=== PATIENT | male | born 1965 | race Caucasian/White ===

== ENCOUNTER → 2016-06-09 | Outpatient (CLI) | payer OTHER ==
[~2016-06-09] MED LIST: ALLO300T2 PO; ANT25 PO; ESCI1TAB9 PO; FRS/40 PO; LISI-791 PO; LPT/20 PO; WARF10TA PO; WARF7.5T PO; [UNRECOGNIZED DRUG - CODE] PO
[2016-06-09 17:17] LABS: BASO % 0.2 %; BASO ABS # 0.02 K/uL (0-0.2); COMPLETE YES; EOS % 1.3 %; HEMATOCRIT 34.7 % (42-52); IG% 0.1 %; LYMPH % 25.9 %; LYMPH ABS # 2.15 K/uL (1.2-3.4); MEAN CELL VOLUME 91.8 fL (80-100); MEAN CORPUSCULAR HEMOGLOBIN 30.2 pg (25-34); MEAN CORPUSCULAR HGB CONC 32.9 g/dl (32-36); MEAN PLATELET VOLUME 11.7 fL (7.4-10.4); MONO % 6.3 %; NEUT % 66.2 %; PLATELET COUNT 188 K/uL (130-400); RED BLOOD COUNT 3.78 M/uL (4.7-6.1)
[2016-06-09 17:20] LABS: URINE APPEARANCE CLEAR (CLEAR); URINE BILIRUBIN NEG (NEG); URINE COLOR YELLOW; URINE EPITHELIAL CELL AUTO 0-5 /lpf (0-5); URINE NITRITE NEG (NEG); URINE PH 6.5 (4.5-7.5); URINE SPECIFIC GRAVITY 1.015 (1.000-1.030); UROBILINOGEN NEG (NEG)
[2016-06-09 17:21] LABS: MANUAL MICROSCOPIC REQUIRED? NO; REVIEW REQ? NO
[2016-06-09 17:27] LABS: BLOOD UREA NITROGEN 47 mg/dl (7-18); CALCIUM 8.5 mg/dl (8.5-10.1); CARBON DIOXIDE 26 mmol/L (21-32); CHLORIDE 109 mmol/L (98-107); GLUCOSE 87 mg/dl (70-99); POTASSIUM 5.9 mmol/L (3.5-5.1); SODIUM 140 mmol/L (136-145)
[2016-06-09 17:41] LABS: URINE PROTIEN/CREAT RATIO 0.6 (0-0.2)
[2016-06-10 06:05] LABS: ESTIMATED AVERAGE GLUCOSE 114 mg/dl; HA1C FLAG Normal (Normal)
== END | disposition home or self-care (01) ==
LOC: C.LABBFT 11:14
PROVIDERS: ATTEND Physician Assistant
DX: N03.2 Chronic nephritic syndrome with diffuse membranous glomerulonephritis (principal)

== ENCOUNTER → 2016-10-13 | Outpatient (CLI) | payer OTHER ==
[2016-10-13 12:29] LABS: BASO % 0.2 %; BASO ABS # 0.02 K/uL (0-0.2); COMPLETE YES; EOS % 0.7 %; HEMATOCRIT 35.2 % (42-52); IG% 0.2 %; LYMPH % 21.5 %; LYMPH ABS # 2.18 K/uL (1.2-3.4); MEAN CELL VOLUME 93.1 fL (80-100); MEAN CORPUSCULAR HEMOGLOBIN 30.7 pg (25-34); MEAN PLATELET VOLUME 11.8 fL (7.4-10.4); MONO % 7.5 %; NEUT % 69.9 %; PLATELET COUNT 201 K/uL (130-400); RED BLOOD COUNT 3.78 M/uL (4.7-6.1); WHITE BLOOD COUNT 10.16 K/uL (4.8-10.8)
[2016-10-13 12:58] LABS: ALT/SGPT 47 U/L (12-78); AST/SGOT 40 U/L (15-37); BLOOD UREA NITROGEN 62 mg/dl (7-18); BUN/CREATININE RATIO 41.2 (10-20); CALCIUM 8.7 mg/dl (8.5-10.1); CARBON DIOXIDE 24 mmol/L (21-32); CHLORIDE 109 mmol/L (98-107); CHOLESTEROL 157 mg/dl (0-200); CHOLESTEROL/HDL RATIO 3.7; GLUCOSE 93 mg/dl (70-99); HDL CHOLESTEROL 43 mg/dl; LDL CHOLESTEROL CALCULATED 77 mg/dl; POTASSIUM 6.9 mmol/L (3.5-5.1); SODIUM 136 mmol/L (136-145); TRIGLYCERIDES 187 mg/dl (0-150); VERY LOW DENSITY LIPOPROT CALC 37 mg/dl
[2016-10-13 13:00] LABS: URINE PROTIEN/CREAT RATIO 0.2 (0-0.2); URINE TOTAL PROTEIN 53.6 mg/dl (0-11.9)
== END | disposition home or self-care (01) ==
LOC: C.LABBFT 10:56
PROVIDERS: ATTEND Physician Assistant
DX: I10 Essential (primary) hypertension (principal); N03.2 Chronic nephritic syndrome with diffuse membranous glomerulonephritis; E78.00 Pure hypercholesterolemia, unspecified

== ENCOUNTER → 2016-10-14 | Outpatient (CLI) | payer OTHER | END | disposition home or self-care (01) | LOC: C.LABBFT 11:18 | PROVIDERS: ATTEND Physician Assistant | DX: E87.5 Hyperkalemia (principal) ==

== ENCOUNTER → 2017-01-16 | Outpatient (CLI) | payer OTHER ==
[~2017-01-16] MED LIST changes: +LSN20 PO; +TPRSR/25 PO; +WARF5TAB90 PO
[2017-01-16 17:59] LABS: BASO % 0.5 %; BASO ABS # 0.04 K/uL (0-0.2); COMPLETE YES; EOS % 1.1 %; HEMATOCRIT 34.5 % (42-52); IG% 0.3 %; LYMPH ABS # 2.07 K/uL (1.2-3.4); MEAN CORPUSCULAR HEMOGLOBIN 30.8 pg (25-34); MEAN CORPUSCULAR HGB CONC 32.8 g/dl (32-36); MEAN PLATELET VOLUME 11.4 fL (7.4-10.4); MONO % 6.8 %; NEUT % 65.3 %; PLATELET COUNT 177 K/uL (130-400); RED BLOOD COUNT 3.67 M/uL (4.7-6.1); WHITE BLOOD COUNT 7.96 K/uL (4.8-10.8)
[2017-01-16 18:01] LABS: URINE APPEARANCE CLEAR (CLEAR); URINE BILIRUBIN NEG (NEG); URINE COLOR YELLOW; URINE EPITHELIAL CELL AUTO 0-5 /lpf (0-5); URINE NITRITE NEG (NEG); URINE SPECIFIC GRAVITY 1.023 (1.000-1.030); UROBILINOGEN NEG (NEG)
[2017-01-16 18:02] LABS: MANUAL MICROSCOPIC REQUIRED? NO; REVIEW REQ? NO
[2017-01-16 19:25] LABS: URINE PROTIEN/CREAT RATIO 0.4 (0-0.2)
[2017-01-16 20:53] LABS: BLOOD UREA NITROGEN 55 mg/dl (7-18); BUN/CREATININE RATIO 40.1 (10-20); CALCIUM 8.5 mg/dl (8.5-10.1); CARBON DIOXIDE 20 mmol/L (21-32); CHLORIDE 112 mmol/L (98-107); CREATININE 1.36 mg/dl (0.60-1.40); GLUCOSE 85 mg/dl (70-99); SODIUM 139 mmol/L (136-145)
== END | disposition home or self-care (01) ==
LOC: C.LABBFT 11:21
PROVIDERS: ATTEND Physician Assistant
DX: N03.2 Chronic nephritic syndrome with diffuse membranous glomerulonephritis (principal); E87.5 Hyperkalemia

== ENCOUNTER → 2017-01-20 | Outpatient (CLI) | payer OTHER ==
[~2017-01-20] MED LIST changes: -LISI-791 PO; -WARF10TA PO
[2017-01-20 12:59] LABS: URINE PROTIEN/CREAT RATIO 0.8 (0-0.2); URINE TOTAL PROTEIN 103.3 mg/dl (0-11.9)
== END | disposition home or self-care (01) ==
LOC: C.LABBFT 11:00
PROVIDERS: ATTEND Physician Assistant
DX: E87.5 Hyperkalemia (principal)

== ENCOUNTER → 2017-01-27 | Outpatient (CLI) | payer OTHER ==
[2017-01-27 12:26] LABS: BLOOD UREA NITROGEN 33 mg/dl (7-18); CALCIUM 8.6 mg/dl (8.5-10.1); CARBON DIOXIDE 28 mmol/L (21-32); CHLORIDE 109 mmol/L (98-107); CREATININE 1.12 mg/dl (0.60-1.40); GLUCOSE 114 mg/dl (70-99); POTASSIUM 4.8 mmol/L (3.5-5.1); SODIUM 141 mmol/L (136-145)
== END | disposition home or self-care (01) ==
LOC: C.LABBFT 10:39
PROVIDERS: ATTEND Physician Assistant
DX: E87.5 Hyperkalemia (principal)

== ENCOUNTER → 2017-04-25 | Outpatient (CLI) | payer OTHER ==
[~2017-04-25] MED LIST changes: -LPT/20 PO; +LPT20 PO
[2017-04-25 17:20] LABS: BASO % 0.5 %; BASO ABS # 0.04 K/uL (0-0.2); EOS % 1.3 %; EOS ABS # 0.11 K/uL (0-0.5); HEMATOCRIT 35.7 % (42-52); IG# 0.01 K/uL (0.00-0.02); LYMPH % 27.7 %; LYMPH ABS # 2.27 K/uL (1.2-3.4); MEAN CELL VOLUME 91.5 fL (80-100); MEAN CORPUSCULAR HEMOGLOBIN 30.8 pg (25-34); MEAN CORPUSCULAR HGB CONC 33.6 g/dl (32-36); MEAN PLATELET VOLUME 11.7 fL (7.4-10.4); MONO ABS # 0.57 K/uL (0.11-0.59); NEUT % 63.4 %; PLATELET COUNT 187 K/uL (130-400); RED CELL DISTRIBUTION WIDTH CV 14.3 % (11.5-14.5); RED CELL DISTRIBUTION WIDTH SD 47.5 fL (36.4-46.3)
[2017-04-25 17:41] LABS: BLOOD UREA NITROGEN 47 mg/dl (7-18); CALCIUM 8.7 mg/dl (8.5-10.1); CARBON DIOXIDE 25 mmol/L (21-32); CHOLESTEROL 183 mg/dl (0-200); CREATININE 1.36 mg/dl (0.60-1.40); GLUCOSE 81 mg/dl (70-99); POTASSIUM 5.8 mmol/L (3.5-5.1); SODIUM 137 mmol/L (136-145)
== END | disposition home or self-care (01) ==
LOC: C.LAB1850 16:19
PROVIDERS: ATTEND Internal Medicine
DX: E78.00 Pure hypercholesterolemia, unspecified (principal)

== ENCOUNTER 2023-08-22 13:53 | Inpatient (IN) ==
--- NOTE | 2023-08-22 14:04 | ED Triage Note ---
Date of Service August 22, 2023 Provider in Triage Author: Rolf Souza History of Present Illness This patient was briefly evaluated while in triage. An abbreviated physical exam was performed. This patient is a 57-year-old Male who presents to the ED for evaluation sent by Dr. Latham for ARF had standing labs today in anticipation for appointment on 08/30 -creatinine elevated per patient no pain, no complaints Physical Exam GENERAL: NAD CARDIOVASCULAR: RRR RESPIRATORY: CTA ABDOMEN: BS x 4. Nontender to palpation. Initial orders for labs and / or imaging were placed and patient was placed in the waiting area until a bed is available. Please see further documentation for the full ED course.
--- NOTE | 2023-08-22 14:16 | Emergency Department Note ---
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 Patient last saw Dr. Latham about a month ago. He had standing blood work drawn today in anticipation for an appointment next week. He was contacted by the office that his "renal functions were abnormal." Patient otherwise reports that he has been feeling well. He denies any chest pain, shortness of breath, lightheadedness, dizziness, nausea or vomiting. Other than increasing his cyclosporine at 1 month ago there is been no changes in his medications. He is urinating without difficulty. Home Medications Medication Instructions Recorded Confirmed Type escitalopram oxalate 5 mg tablet 10 mg PO DAILY 01/02/23 08/22/23 History metoprolol succinate 50 mg 50 mg PO BID #180 tabs 06/15/23 08/22/23 Rx tablet,extended release 24 hr lisinopril 10 mg tablet 10 mg PO DAILY #90 tabs 06/29/23 08/22/23 Rx cyclosporine modified 100 mg 100 mg PO BID #180 caps 08/02/23 08/22/23 Rx capsule (Neoral) allopurinol 300 mg tablet 300 mg PO QAM 08/22/23 08/22/23 History cholecalciferol (vitamin D3) 50 50 mcg PO PM 08/22/23 08/22/23 History mcg (2,000 unit) capsule furosemide 20 mg tablet 20 mg PO DAILY PRN ankle edema 08/22/23 08/22/23 History hydrocortisone 2.5 % topical cream 1 applic GA BID PRN hemorrhoids 08/22/23 08/22/23 History with perineal applicator (Anusol-HC) hydrocortisone acetate 25 mg 25 mg GA DAILY PRN Other 08/22/23 08/22/23 History rectal suppository rosuvastatin 40 mg tablet (Crestor) 40 mg PO PM 08/22/23 08/22/23 History warfarin 5 mg tablet 7.5 mg PO UD 08/22/23 08/22/23 History Allergies Allergy/AdvReac Type Severity Reaction Status Date / Time NSAIDS (Non-Steroidal Allergy Unknown Unknown Verified 08/02/23 15:19 Anti-Inflamma Past Med/Surg History Problem List (Updated 08/22/23 @ 15:53 by Jody Smith) Chronic membranous glomerulonephritis (Acute) Acute renal failure (ARF) (Acute) Acute renal failure (ARF) Chewing tobacco dependence in remission 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 since 1998 on warfarin Depression (Chronic) Chronic membranous glomerulonephritis (Chronic) HTN (hypertension) (Chronic) Hx of gout (Chronic) Multinodular thyroid (Chronic) Pre-diabetes (Chronic) Renal vein thrombosis Systolic murmur at cardiac apex Mitral regurgitation Pulmonary nodules (Acute) 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 Abnormal CT scan of lung Atrial fibrillation (Chronic) hx of Apr 2020 during hospitalization--on warfarin/metoprolol--per PCP note 06/28/21 HR noted to be regular rhythm Dyslipidemia Vitamin D deficiency Gastroesophageal reflux disease Drug-induced anemia Hemorrhoids Medical History Gout Anemia Chronic membranous glomerulonephritis Cushings syndrome Depression Hypercholesterolemia Multinodular thyroid Nephrotic syndrome Renal/ureteral disease 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 Surgical History Status post biopsy of kidney History of colonoscopy History of wisdom tooth extraction S/P thyroid biopsy History of bronchoscopy (~04/2020) Family History Other Hypertension No family history of adverse response to anesthesia Denies family history of Ovarian cancer Prostate cancer Myocardial infarction Breast cancer Colorectal cancer Social History Smoking Status: Never smoker Second Hand Exposure: No; Do You Dip or Chew Tobacco: No (chews tobacco (advised on policy)); Hx Alcohol Use: Yes Alcohol type: beer and hard liquor Alcohol Intake Frequency: 2-4 x/Month Hx Substance Use: No Preferred Language: Persian Communication Ability: Effective Visual Impairment: Limited Hearing Ability: Normal Refrigerator Cabinetmaker Required: No Beliefs That Will Affect Care: None marital status: Current Living Situation: Spouse current occupational status: employed 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 How many Children do You have: 2 Feels Safe at Home: Yes Diet: low salt caffeine: Yes (1 soda daily) Dental Care, Regularly: Yes Physical Activity Frequency: Does not Exercise Seatbelt Use: always Do you think of yourself as: straight/heterosexual Gender Identity: Male Assistive Devices: Glasses Review of Systems A total of 10 systems reviewed and were otherwise negative Physical Exam Vital Signs Vital Signs - 24 hr 08/22/23 14:02 08/22/23 14:47 08/22/23 15:18 Temperature 36.5 C Temperature Source Temporal Artery Scan Pulse Rate 58 L 55 L Pulse Rate [Apical] 57 L Pulse Rhythm Regular Respiratory Rate 20 17 Respiratory Effort / Characteristics Non-Labored Spontaneous Non-Labored Spontaneous Respiratory Depth Normal Normal Respiratory Pattern Regular Blood Pressure 170/94 H Blood Pressure [Left Arm] 159/99 H Blood Pressure Mean 119 Blood Pressure Mean [Left Arm] 119 Pulse Oximetry 99 98 Oxygen Delivery Method Room Air Room Air Sepsis Recent Fever Within 48 Hours No Sepsis New/Unexplained Change in Mental Status No Sepsis Action Taken by Nursing No Action Required CONSTITUTIONAL: Pleasant, well-appearing 57-year-old male in no acute distress. EYES: Pupils equal, round, reactive to light and accommodation. EOMs intact without nystagmus. Sclera are anicteric. ENT: Tympanic membranes intact, with normal landmarks. External canals are clear. Oral and nasopharynx are clear. Mucous membranes are moist, no lesions, tongue and gums appear normal. CARDIOVASCULAR: Regular rate and rhythm. No JVD. Peripheral pulses easy to palpable. RESPIRATORY: Breath sounds equal and clear to auscultation. GI: Bowel sounds are present. Abdomen is soft, nontender, nondistended. No organomegaly. No pulsatile masses. No guarding or rebound. MUSCULOSKELETAL: Full range of motion of extremities x 4 with good strength. No cyanosis, edema, joint tenderness or swelling. No deformity. INTEGUMENTARY: No lesions or rash, normal skin turgor. NEUROLOGICAL: Alert, oriented, and cooperative. Cranial nerves, sensation and strength grossly intact. Course Course Patient was seen and assessed as above. External medical records were reviewed, including recent nephrology notes, and blood work that was performed around 0800 this morning. Labs from earlier today per my interpretation white count 7400, H&H 10.4 and 31.4, platelet count 196,000. Sodium 138, potassium 4.4, chloride 108, carbon dioxide 21, BUN 95 and creatinine 4.64. Baseline creatinine tends to run between 1.5 and 2, although he has had creatinines as high as 3.0 earlier this year. No gross liver function abnormalities noted. Urine is not overtly concerning for infection. Random urine total protein elevated 537. Cyclosporine level is pending. Patient was assessed by myself in triage, and then again in the subwait room. I did order EKG, coags, cardiac monitoring and urinalysis from the ED. After review of the information above and other included data, I feel the patient requires further inpatient care/management. This was discussed with the patient and he concurs. He states that that was the intention of his architectural superintendent. I did discuss the patient with the ED hospice case manager for admission. Patient was reviewed with the [facility] Hospitalist Service, Dr. Rae, for admission. Diagnostics, as interpreted by me: Laboratory studies: PTT 36.4, INR supratheraputic at 3.8. Urine microscopy notes 3+ protein and 1+ blood. ECG: Sinus bradycardia 57 bpm, no acute ischemic changes. No significant change on review of prior EKGs. Cardiac Monitoring: Cardiac monitoring: An order was placed for continuous cardiac monitoring. The monitor shows a sinus bradycardia in the 50s per my interpretation. Differential diagnosis: Electrolyte or metabolic abnormality, dehydration, GAYLA, medication side effect, acute renal failure, among others. Medical Decision Making Differential Diagnosis See ED Course. Medical Records Attestation: I reviewed the patient's medical records. Home Medications Current Medication List: was personally reviewed by me Laboratory Data Attestation: I reviewed the patient's lab results. Lab Results 08/22/23 08/22/23 Range/Units 14:10 14:35 PT 36.4 H (9.0-12.0) Seconds INR 3.8 H (0.9-1.1) APTT 42 H (21-31) Seconds PTT Ratio 1.6 TSH 1.263 (0.300-4.500) uIu/ml Urine Color Yellow Urine Appearance Clear (Clear) Urine pH 6.5 (4.5-7.5) Ur Specific [place] 1.013 (1.000-1.030) Urine Protein 3+ H (Negative) Urine Glucose (UA) Negative (Negative) Urine Ketones Negative (Negative) Urine Blood 1+ H (Negative) Urine Nitrite Negative (Negative) Urine Bilirubin Negative (Negative) Urine Urobilinogen Negative (Negative) Ur Leukocyte Esterase Negative (Negative) Urine WBC (Auto) 0-5 (0-5) /hpf Urine RBC (Auto) 0-2 (0-2) /hpf U Hyaline Cast (Auto) 0-2 (0-2) /lpf U Epithel Cells (Auto) 0-2 (0-2) /hpf Urine Bacteria (Auto) None Seen (None Seen) MDM Narrative See ED Course. Impression & Plan Acute renal failure (ARF), Chronic membranous glomerulonephritis Discharge Plan Visit Data Chief Complaint: Abnormal Labs/Diagnostic Testing Stated Complaint: ABNORMAL BLOOD TESTS ED Provider: Dong Del Valle ED Midlevel Provider: Rolf Souza Discharge Problem: Acute renal failure (ARF), Chronic membranous glomerulonephritis Patient Disposition: Admitted As Inpatient Forms Stand Alone Forms: [facility] Prescriptions Prescriptions: No Action metoprolol succinate 50 mg tablet extended release 24 hr 50 mg PO BID Qty: 180 3RF Rx Instructions: 1 tablet twice per day escitalopram oxalate 5 mg tablet 10 mg PO DAILY lisinopril 10 mg tablet 10 mg PO DAILY Qty: 90 3RF cyclosporine modified [Neoral] 100 mg capsule 100 mg PO BID Qty: 180 3RF hydrocortisone acetate 25 mg suppository 25 mg GA DAILY PRN (Reason: Other) hydrocortisone [Anusol-HC] 2.5 % cream with perineal applicator 1 applic GA BID PRN (Reason: hemorrhoids) warfarin 5 mg tablet 7.5 mg PO UD Protocol: Dose Management Condition: Monday Dose/Route: 7.5 mg Instruction: 1.5 x 5 mg tablets Condition: Monday Dose/Route: 7.5 mg Instruction: 1.5 x 5 mg tablets Condition: Monday Dose/Route: 5 mg Instruction: 1 x 5 mg tablet Condition: Monday Dose/Route: 7.5 mg Instruction: 1.5 x 5 mg tablets Condition: Dose/Route: 5 mg Instruction: 1 x 5 mg tablet Condition: Monday Dose/Route: 7.5 mg Instruction: 1.5 x 5 mg tablets Condition: Monday Dose/Route: 5 mg Instruction: 1 x 5 mg tablet Protocol Text: Adjustment Start Date: Monday08/08/23 INR Value: 2.9 INR Date: 08/08/23 Recheck Date: 08/15/23 Rx Instructions: 5 mg- Monday, and Monday ; 7.5 rest of the days ( Monday, Monday, Monday, Monday) allopurinol 300 mg tablet 300 mg PO QAM Rx Instructions: TAKE 1 TABLET ORALLY DAILY IN THE MORNING furosemide 20 mg tablet 20 mg PO DAILY PRN (Reason: ankle edema) Rx Instructions: 20 mg orally as needed for ankle edema; rosuvastatin [Crestor] 40 mg tablet 40 mg PO PM cholecalciferol (vitamin D3) 50 mcg (2,000 unit) capsule 50 mcg PO PM Referrals Referrals: Tasneem Russo MD [Primary Care Provider] -
--- NOTE | 2023-08-22 14:46 | History & Physical Report ---
Date of Service August 22, 2023 Assessment & Plan (1) Acute renal failure (ARF): Plan: Acute on chronic CKD, ARF. Non-anuric. History of membranous glomerulonephritis -Biopsy proven membranous GM int he past (10 years ago).Previously treated with oral cyclosporin. Was on 100 mg daily until 2022, then tapered to 25 mg daily thereafter, and subsequently dc/ed. Hospitalized 2020 and subsequently [place] [facility]ure[place] disease/vasculitis with negative i mmunologic workup, negative ANCA, negative anti-GBM antibody. Creatinine gradually uptrending. 4.64 on admission. Potassium is normal. No overt volume overload. No indication for dialysis on admission - Discussed w/ nephro. Typically treat for 2 years then taper. Had been tapering, did OK until was completely dced then developed nephrotic range proteinuria. Defer biopsy as we have the antibodies, and history of positive. ?Lisinopril, dehydration contributing vs failure of cyclosporin therapy. cyclosporin level pending --> if therpeutic and 'failing' --> May need Rituxan/steroids. Appreciate recommendations - Repeat US pending, no obstruction on last US - INR 3.8, slightly supratherapeutic. No hematuria, flank pain or evidence of bleeding. 1 dose of warfain held. Low risk of thrombosis, RV imaging deferred. +HTN. RA Duplex pending. -UA with 1+ blood and protein, otherwise bland (2) Chronic membranous glomerulonephritis: Plan: - As noted (3) Atrial fibrillation: Plan: History of paroxysmal A-fib Sinus on admission, no chest pain Metoprolol continued 1 dose of warfarin held, continue warfarin with goal INR 23.0 (4) Gout: Plan: Gout Patient has been on allopurinol 300mg daily. Held for renal function. No evidence of acute flare (5) HTN (hypertension): Plan: - MTP continued - Lisinopril held - Labetelol applications support specialist, If limited by bradycardia hydralazine available (6) Pre-diabetes: Plan: - BSG 166 on admit - Conservative SSI ordered, AC/HS, DM2 diet goal 110-150 (7) Multinodular thyroid: Plan: - No acute sx. TSH added. Follows with Dr. Russo Plan Prophylaxis: Anticoagulated Diet: Control carb Disposition: Medical telemetry for hypertension with beta-alvin availability and acute renal failure, history of A-fib CODE STATUS: Full code History of Present Illness Primary Care Provider: Tasneem Russo MD Duane is seen at the bedside with his Lucy present. had bloodwork done in advance of his appointment with nephrology next month and his creatinine had risen significantly with nephrotic proteinurea. Was referred to the ER for further care. Other than that has felt OK Denies leg swelling No fevers, chills, or sweats Does endorse some mild fatigue no cough, no URI symptoms. no abdominal swelling. no nausea or vomiting Patient reports he has a hx of glomerulonephritis - Diagnosed in 1998. Has been on cyclosporin since that time. In June his Cr started torise as he was cutting down on the cyclosporin, so was placed back on 100mg daily in July, then June was increased back to 200mg twice daily. Has not had improvement in his renal function despite this. Eating and drinking normally. Taking lisinopril as directed in the morning, did take lisinopril this AM. Taking warfarin as direct. 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 Has not missed any doses of warfarin in the last 2 weeks. Misses a dose rarely, maybe 1 dose missed a month and would always take in the morning if he forgot. No back or flank pain. No abdominal pain. No hematuria. Peeing normally. No oliguria/anuria Hx of a thyroid nodule following with Dr. Russo. history of Afib. On warfarin. Doing well on MTP 50mg BID. takes allopurinol for gout takes crestor for hld No history of DC/CVA. INR 3.8 today Medical History: Reviewed Medications: Reviewed Surgical History: Reviewed Family history: Reviewed Allergies: Reviewed Social History: Reviewed Code Status: Full Allergies Allergy/AdvReac Type Severity Reaction Status Date / Time NSAIDS (Non-Steroidal Allergy Unknown Unknown Verified 08/02/23 15:19 Anti-Inflamma Home Medications Medication Instructions Recorded Confirmed Type escitalopram oxalate 5 mg tablet 10 mg PO DAILY 01/02/23 08/22/23 History metoprolol succinate 50 mg 50 mg PO BID #180 tabs 06/15/23 08/22/23 Rx tablet,extended release 24 hr lisinopril 10 mg tablet 10 mg PO DAILY #90 tabs 06/29/23 08/22/23 Rx cyclosporine modified 100 mg 100 mg PO BID #180 caps 08/02/23 08/22/23 Rx capsule (Neoral) allopurinol 300 mg tablet 300 mg PO QAM 08/22/23 08/22/23 History cholecalciferol (vitamin D3) 50 50 mcg PO PM 08/22/23 08/22/23 History mcg (2,000 unit) capsule furosemide 20 mg tablet 20 mg PO DAILY PRN ankle edema 08/22/23 08/22/23 History hydrocortisone 2.5 % topical cream 1 applic MI BID PRN hemorrhoids 08/22/23 08/22/23 History with perineal applicator (Anusol-HC) hydrocortisone acetate 25 mg 25 mg MI DAILY PRN Other 08/22/23 08/22/23 History rectal suppository rosuvastatin 40 mg tablet (Crestor) 40 mg PO PM 08/22/23 08/22/23 History warfarin 5 mg tablet 7.5 mg PO UD 08/22/23 08/22/23 History Past Med/Surg History Problem List Acute renal failure (ARF) Chewing tobacco dependence in remission Quit in 01/2023 [facility] (current) use of anticoagulants since 1998 on warfarin Depression (Chronic) Chronic membranous glomerulonephritis (Chronic) HTN (hypertension) (Chronic) Hx of gout (Chronic) Multinodular thyroid (Chronic) Pre-diabetes (Chronic) Renal vein thrombosis Systolic murmur at cardiac apex Mitral regurgitation Pulmonary nodules (Acute) 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 A therapy Abnormal CT scan of lung Atrial fibrillation (Chronic) hx of Apr 2020 during hospitalization--on warfarin/metoprolol--per PCP note 06/28/21 HR noted to be regular rhythm Dyslipidemia Vitamin D deficiency Gastroesophageal reflux disease Drug-induced anemia Hemorrhoids Medical History Gout Anemia Chronic membranous glomerulonephritis Cushings syndrome Depression Hypercholesterolemia Multinodular thyroid Nephrotic syndrome Renal/ureteral disease 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 Surgical History Status post biopsy of kidney History of colonoscopy History of wisdom tooth extraction S/P thyroid biopsy History of bronchoscopy (~04/2020) Family History Other Hypertension No family history of adverse response to anesthesia Denies family history of Ovarian cancer Prostate cancer Myocardial infarction Breast cancer Colorectal cancer Social History Smoking Status: Never smoker Second Hand Exposure: No; Do You Dip or Chew Tobacco: No (chews tobacco (advised on policy)); Hx Alcohol Use: Yes Alcohol type: beer and hard liquor Alcohol Intake Frequency: 2-4 x/Month Hx Substance Use: No Preferred Language: Icelandic Communication Ability: Effective Visual Impairment: Limited Hearing Ability: Normal Car Head 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 How many Children do You have: 2 Feels Safe at Home: Yes Diet: low salt caffeine: Yes (1 soda daily) Dental Care, Regularly: Yes Physical Activity Frequency: Does not Exercise Seatbelt Use: always Do you think of yourself as: straight/heterosexual Gender Identity: Male Assistive Devices: Glasses Physical Exam Physical Exam: General: A&Ox3. NAD. Cooperative. HEENT: Atraumatic, normocephalic. Vision/hearing intact Pulm: CTAB A&P. -wheezes, -rales, -rhonchi. Symmetrical chest rise. No increased work of breathing. No respiratory distress. Cardiac: RRR, -mrg. Radial pulses intact and symmetrical. Abdominal: Nontender, nondistended, soft. BS present. No CVA tenderness. No hematomas. Ext: No pitting edema Results & Data Results & Data Vital Signs (Past 12 Hours) Vital Signs Temp Pulse Resp BP Pulse Ox O2 Del Method 08/22/23 14:02 36.5 C 58 L 20 170/94 H 99 Room Air PG Care Time/CCT Total # of Minutes Spent Total Time Spent with Patient: Total time spent is greater than 50% in coordination of care (as documented) at patient's floor/unit and/or counseling patient: Coding Level of Care Code 46056 INT INP/OBS CARE 3/75MIN Diagnoses Acute renal failure (ARF) N17.9 Chronic membranous glomerulonephritis N03.2 Atrial fibrillation I48.91 Gout M10.9 Hypertension, unspecified type I10 Hypertension type: unspecified Pre-diabetes R73.03 Multinodular thyroid E04.2 (5) HTN (hypertension) Hypertension type: unspecified Qualified Code(s): I10 - Essential (primary) hypertension
[2023-08-22 14:54] LABS: INR 3.8 (0.9-1.1); Partial Thromboplastin Ratio 1.6; Partial Thromboplastin Time 42 Seconds (21-31); Prothrombin Time 36.4 Seconds (9.0-12.0)
[2023-08-22 15:07] LABS: Appearance Urine Clear (Clear); Bacteria Urine Automated None Seen (None Seen); Bilirubin Urine Negative (Negative); Blood Urine 1+ (Negative); Cast Urine Automated 0-2 /lpf (0-2); Color Urine Yellow; Epithelial Cell Urine Auto 0-2 /hpf (0-2); Glucose Urine UA Negative (Negative); Ketones Urine Negative (Negative); Leukocyte Esterase Urine Negative (Negative); Nitrite Urine Negative (Negative); Protein Urine 3+ (Negative); RBC Urine Automated 0-2 /hpf (0-2); Specific Gravity Urine 1.013 (1.000-1.030); Urobilinogen Urine Negative (Negative); WBC Urine Automated 0-5 /hpf (0-5); pH Urine 6.5 (4.5-7.5)
[2023-08-22] MEDS ORDERED: GLUCAGON FOR INJ 1 MG VIAL SQ PRN (15:31)
[2023-08-22] MEDS ORDERED: CARBOHYDRATES FOR HYPOGLYCEMIA PO PRN (15:31)
[2023-08-22] MEDS ORDERED: DEXTROSE 50% 50 ML SYRINGE IV PRN (15:31)
[2023-08-22] MEDS ORDERED: GLUCOSE 10 TAB/TUBE PO PRN (15:31)
[2023-08-22] MEDS ORDERED: GLUCOSE 40% GEL 15 GM TUBE PO PRN (15:31)
[2023-08-22] MEDS ORDERED: hydrALAZINE HCL 20 MG/ML VIAL IV PRN ×2 (15:36→20:50)
[2023-08-22] MEDS ORDERED: LABETALOL HCL IV 5 MG/ML 20ML IV PRN (15:36)
[2023-08-22] MEDS: hydrALAZINE 10 MG TAB PO STA (17:13)
--- NOTE | 2023-08-22 17:13 | Electrocardiogram Report ---
Test Reason : Blood Pressure : / mmHG Vent. Rate : 057 BPM Atrial Rate : 057 BPM P-R Int : 148 ms QRS Dur : 090 ms QT Int : 422 ms P-R-T Axes : 022 014 024 degrees QTc Int : 410 ms Sinus bradycardia Otherwise normal ECG When compared with ECG of 15-JUN-2022 14:54, (unconfirmed) No significant change was found Confirmed by Josemanuel Lees ([id number]) on 08/22/2023 5:13:07 PM Referred By: Confirmed By:Elias Lees
[2023-08-22] MEDS: LACTATED RINGER'S 1,000 ML IV SCH (17:14)
[2023-08-22] MEDS: INSULIN ASPART PER UNIT CHARGE SC SCH (17:54)
[2023-08-22] MEDS: hydrALAZINE HCL 20 MG/ML VIAL IV ONE (18:51)
[2023-08-22] MEDS: METOPROLOL SUCC 50MG EXT REL TAB PO SCH (20:55)
[2023-08-22] MEDS: cycloSPORINE 100 MG CAP PO SCH (20:55)
[2023-08-22] MEDS ORDERED: ROSUVASTATIN CALCIUM 20 MG TAB PO SCH (21:00)
--- NOTE | 2023-08-23 07:13 | Ultrasound Report ---
DOPPLER ULTRASOUND OF THE RENAL ARTERIES CLINICAL HISTORY: Acute renal failure. Hypertension. COMPARISON STUDY: CT of May 04, 2000. Renal ultrasound December 03, 2023. TECHNIQUE: Color and duplex Doppler sonography of the renal arteries and abdominal aorta was waqas cade FINDINGS: The right kidney measures 12.2 x 6.5 x 5.3 cm and the left measures 12.2 x 7.9 x 6.2 cm per there is no hydronephrosis. Several renal cysts are again noted. 1.2 cm echogenic left renal lesion is unchanged. This favors an angiomyolipoma. Renal echogenicity is increased. The peak systolic veloc ity within the abdominal aorta was 87 cm/s. Peak systolic velocity within the right renal artery was 105 cm/s. The peak systolic velocity within the left renal artery was 94 cm/s. No elevated velocities were identified within the renal arteries. IMPRESSION: 1. No sonographic evidence for renal artery stenosis. 2. Mild increase in echogenicity, similar to prior ultrasound. 3. No significant change in a 1.2 cm echogenic left renal lesion which favors an angiomyolipoma. ACT 112: Negative or not required by law. Electronically signed by: Nam Rowley M.D. 08/23/2023 7:11 AM
[2023-08-23 07:42] LABS: Basophils # (auto) 0.04 K/uL (0.00-0.20); Basophils % (auto) 0.5 %; Eosinophils # (auto) 0.11 K/uL (0.00-0.50); Eosinophils % (auto) 1.4 %; Hematocrit (blood only) 30.5 % (42.0-52.0); Hemoglobin 10.3 g/dl (14.0-18.0); Immature Granulocytes # (auto) 0.02 K/uL (0.01-0.20); Immature Granulocytes % (auto) 0.3 %; Lymphocytes # (auto) 1.98 K/uL (1.20-3.40); Lymphocytes % (auto) 24.9 %; Mean Corpuscular Hemoglobin 30.6 pg (25.0-34.0); Mean Corpuscular Hgb Conc 33.8 g/dL (32.0-36.0); Mean Corpuscular Volume 90.5 fL (80.0-100.0); Monocytes # (auto) 0.67 K/uL (0.11-0.59); Monocytes % (auto) 8.4 %; Neutrophils # (auto) 5.14 K/uL (1.40-6.50); Neutrophils % (auto) 64.5 %; Platelet Count 162 K/uL (130-400); RDW Coefficient of Variation 13.6 % (11.5-14.5); RDW Standard Deviation 45.8 fL (36.4-46.3); Red Blood Count 3.37 M/uL (4.70-6.10); White Blood Count 7.96 K/ul (4.8-10.8)
[2023-08-23 07:59] LABS: BUN Creatinine Ratio 22.5 (10-20); Calcium 8.2 mg/dl (8.6-10.3); Creatinine Clr Calc Pharmacy 19.5 ml/min; Est GFR (African American) 17.1 ml/min; Est GFR (Non-African American) 14.8 ml/min; Potassium 4.8 mmol/L (3.5-5.1)
--- NOTE | 2023-08-23 08:03 | Hospitalist Progress Note ---
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 Acute Kidney Injury -In the context of membranous glomerulonephritis, CKD, and hx of renal vein thrombosis -HTN, No hematuria, flank pain or evidence of bleeding. No overt volume overload. -Baseline creatinine 1.4 - 2.0. On admission: 4.46. Creatinine trending downward. INR 3.8, slightly supratherapeutic. UA with 1+ blood and protein. -Renal U/S and renal artery duplex unremarkable, negative for renal artery stenosis -Nephrology consulted, appreciate recommendations. * No indication for dialysis at this time * Cyclosporin levels pending. If levels are therapeutic and failing, consider biopsy and/or Rituxiab/steroids * Continue Cyclosporin 100 mg. * Keep well-hydrated, monitor intake/output, aim for net positive as he does not have any sign of volume overload. * Hold furosemide, hydrocortisone, lisinopril. If kidney function improved and stabilized, resume lisinopril * Check labs in AM: PT INR, renal function panel, Fe panel, ferritin, folate, Vitamin B12. Consider ROMELIA. Elevated INR, on Warfarin -INR 3.8 on admission, goal is 2-3 -Warfarin was held 08/22/23 in the evening * Discontinued Warfarin 7.5 mg. Ordered Warfarin 5 mg, start this PM * Recheck PT INR in the AM Hypertension -In the context of membranous glomerulonephritis, CKD, GAYLA * Hold lisinopril * Continue metoprolol Depression * Continue Lexapro 10 mg Hyperlipidemia * Continue Rosuvastatin 40 mg Gout * Hold allopurinol FEN: Carb consistent or DM2 Code status: full code DVT ppx: SCD Held home meds: 1 dose of warfarin held, furosemide, hydrocortisone, lisinopril, allopurinol Consults: nephrology Dispo: telemetry med Admission and Anticipated Discharge Date Admission Date: August 22, 2023 Supervising Physician Co-Signing Physician Notes I also saw the patient and confirmed ricketts portions of the clinical history and physical examination. I agree with the impression and plan as noted in the medical student and resident documentation above. Subjective No overnight concerns. No new symptoms or concerns. He endorses mild fatigue, mild left sided frontal headache, and mild lumbar back pain (which he attributes to the hospital bed). He denies dysuria, fevers, chills, CP, SOB, dizziness, nausea, abdominal swelling, back pain, flank pain, hematuria, oliguria, anuria and changes in vision. [facility] He reports that he has not missed any warfarin doses in the last two weeks, but that his INR has been "all out of wack" lately. His most recent INR was 3.9. He was initially on 5 mg //Mon and 7.5 mg Mon/Mon/Monday/Mon. He was switched to 5mg every day, and then recently was put back on the 5mg/7.5 mg schedule. Review of Systems 2 Review of Systems: See HPI, otherwise negative Physical Exam 2 Physical Exam: Constitutional: well-appearing, no acute distress HEENT: NCAT, no conjunctival injection CV: regular rhythm, no murmur appreciated, extremities well-perfused, no LE edema Resp: CTABL, no wheezes/rales/rhonchi appreciated,no increased work of breathing GI: soft, nondistended, nontender, BS normoactive MSK: No gross deformities appreciated Back: No CVA tenderness Skin: warm, dry, no rash appreciated Neuro: alert, oriented, no focal neurologic deficits appreciated Results & Data Results & Data Vital Signs (Past 12 Hours) Vital Signs Temp Pulse Pulse Resp BP Pulse Ox O2 Del Method 08/23/23 07:29 98.1 F 55 L 18 158/80 H 96 Room Air 08/23/23 03:36 97.7 F 57 L 16 167/96 H 96 Room Air 08/22/23 22:53 98.1 F 58 L 18 155/85 H 97 Room Air Laboratory Results 08/23/23 07:28 08/23/23 07:28 Diagnostic Findings DOPPLER ULTRASOUND OF THE RENAL ARTERIES CLINICAL HISTORY: Acute renal failure. Hypertension. COMPARISON STUDY: CT of May 04, 2000. Renal ultrasound December 03, 2023. TECHNIQUE: Color and duplex Doppler sonography of the renal arteries and abdominal aorta was performed. FINDINGS: The right kidney measures 12.2 x 6.5 x 5.3 cm and the left measures 12.2 x 7.9 x 6.2 cm per there is no hydronephrosis. Several renal cysts are again noted. 1.2 cm echogenic left renal lesion is unchanged. This favors an angiomyolipoma. Renal echogenicity is increased. The peak systolic velocity within the abdominal aorta was 87 cm/s. Peak systolic velocity within the right renal artery was 105 cm/s. The peak systolic velocity within the left renal artery was 94 cm/s. No elevated velocities were identified within the renal arteries. IMPRESSION: 1. No sonographic evidence for renal artery stenosis. 2. Mild increase in echogenicity, similar to prior ultrasound. 3. No significant change in a 1.2 cm echogenic left renal lesion which favors an angiomyolipoma. Medications Administered Current Inpatient Medications Cyclosporine (Cyclosporine 100 Mg Cap) 100 mg PO BID ARTURO Stop: 09/21/23 20:59 Last Admin: 08/22/23 20:55 Dose: 100 mg Dextrose (Dextrose 50% 50 Ml Syringe) 25 - 50 ml IV UD PRN; Protocol PRN Reason: Hypoglycemia Protocol Stop: 09/21/23 15:30 Escitalopram Oxalate (Escitalopram Oxalate 10 Mg Tab) 10 mg PO DAILY ARTURO Stop: 09/22/23 08:59 Glucagon (Glucagon For Inj 1 Mg Vial) 1 mg SQ UD PRN; Protocol PRN Reason: Hypoglycemia Protocol Stop: 09/21/23 15:30 Glucose (Glucose 40% Gel 15 Gm Tube) 15 - 30 gm PO UD PRN; Protocol PRN Reason: Hypoglycemia Protocol Stop: 09/21/23 15:30 Glucose (Glucose 10 Tab/Tube) 4 - 8 tab PO UD PRN; Protocol PRN Reason: Hypoglycemia Treatment Stop: 09/21/23 15:30 Hydralazine HCl (Hydralazine Hcl 20 Mg/Ml Vial) 5 mg IV Q6H PRN PRN Reason: SBP >180, second line Stop: 09/21/23 15:35 Insulin Aspart (Insulin Aspart Per Unit Charge) 0 units SC ACHS RATURO Stop: 09/21/23 16:29 Last Admin: 08/22/23 20:04 Dose: Not Given Labetalol HCl (Labetalol Hcl Iv 5 Mg/Ml 20ml) 5 mg IV Q6H PRN PRN Reason: SBP > 180, 1st line Stop: 09/21/23 15:35 Metoprolol Succinate (Metoprolol Succ 50mg Ext Rel Tab) 50 mg PO BID [facility] Stop: 09/21/23 20:59 Last Admin: 08/22/23 20:55 Dose: 50 mg Miscellaneous (Carbohydrates For Hypoglycemia ) 15 - 30 gm PO UD PRN PRN Reason: Hypoglycemia Protocol Stop: 09/21/23 15:30 Rosuvastatin Calcium (Rosuvastatin Calcium 20 Mg Tab) 40 mg PO PM [facility] Stop: 09/21/23 20:59 Warfarin Sodium (Warfarin Sod 7.5 Mg Tab) 7.5 mg PO [email or web address] [facility] Stop: 09/22/23 15:59 Warfarin Sodium (Warfarin Sod 5 Mg Tab) 5 mg PO [email or web address] [facility] Stop: 09/23/23 15:59 ECG Additional Comments: Vent. Rate : 057 BPM Atrial Rate : 057 BPM P-R Int : 148 ms QRS Dur : 090 ms QT Int : 422 ms P-R-T Axes : 022 014 024 degrees QTc Int : 410 ms Sinus bradycardia 57 Otherwise normal ECG When compared with ECG of 15-JUN-2022 14:54, (unconfirmed) No significant change was found Resident Supervision Co-Signing Physician Notes I personally spoke to and examined the patient and then discussed the findings/assessment and plan with the medical student and attending physician. Pt doing well this AM. No concerns or complaints. Overall feeling well, but fatigued. Also complaining of a mild headache. Pt well appearing. RRR, soft systolic murmur noted. Non labored respirations. Mood and affect congruent. GAYLA: Secondary to possible worsening of underlying membranous nephropathy. Currently on cyclosporine 100 mg BID. Nephro consulted- awaiting cyclosporine level to determine appropriate dosing. Consideration given for possible kidney bx to confirm progression of nephropathy prior to initiating rituximab if necessary. Hx of renal thrombosis: On chronic warfarin. INR lately has been supratherapeutic per pt. 3.8 upon admission and upon recheck this AM. Warfarin held yesterday. Will give reduced dose of 5 mg today. Recheck INR tomorrow. Afib: anticoagulation as above. Continue metoprolol 50 mg BID Nimisha Vaughn, Family Medicine, PGY-2 Resident Activity Tracking Resident Involvement: Resident Care Provided Care Provided: Adult Hospital Medicine (5) HTN (hypertension) Hypertension type: unspecified Qualified Code(s): I10 - Essential (primary) hypertension
[2023-08-23 08:11] LABS: INR 3.8 (0.9-1.1); Prothrombin Time 36.5 Seconds (9.0-12.0)
[2023-08-23] MEDS: ESCITALOPRAM OXALATE 10 MG TAB PO SCH (09:19)
[2023-08-23] MEDS: ACETAMINOPHEN 325 MG TAB PO PRN (09:22)
--- NOTE | 2023-08-23 12:22 | Nephrology Consultation ---
Date of Consultation August 23, 2023 Assessment & Plan (1) Acute renal failure (ARF): (2) Chronic membranous glomerulonephritis: (3) HTN (hypertension): (4) Hx of gout: (5) Chronic anemia: Plan Stage IIIa CKD, baseline creatinine 1.4-1.5 with history of membranous nephropathy for almost 25 years, admitted with progressive worsening of kidney function over last 2 months and creatinine of 4.6 on outpatient lab but otherwise asymptomatic. Over last 1 year try titrating off of neural was attempted with recurrence of membranous nephropathy and resumed neural 100 mg twice a day. On admission urinalysis consistent with membranous nephropathy with 5 to 6 g of proteinuria but no hematuria. Renal ultrasound and renal artery Doppler was unremarkable. Initially was quite hypertensive but blood pressure improved. Has history of chronic anemia hemoglobin 10.3-11. Has been on lisinopril which is currently on hold. Unclear etiology for progressive worsening of kidney function, no postrenal obstruction or renovascular disease. Clinically not suggestive of prerenal or volume depletion. ? Progressive worsening of underlying membranous nephropathy as well as significant chronic tubular interstitial changes and fibrosis with history of membranous nephropathy for more than 25 years. INR was 3.8 argues against any new renal vein thrombosis. Kidney function just slightly improved from labs yesterday, creatinine down to 4.2. Cyclosporine trough level pending. -- Continue current dose of Neoral, wait for trough level to see how either need to increase the dose. Since it worked for him for almost 25 years, unlikely to be cyclosporine failure although possible. If kidney function continues to worsen but cyclosporine trough level is normal, rituximab may be considered. However, before trying rituximab, it would be probably reasonable to consider renal biopsy for assessment of chronicity considering membranous nephropathy for 25 years and exposure to calcineurin inhibitor. -- Advised to keep well-hydrated, monitor intake and output, aim for net positive as he does not have any sign of volume overload. -- Blood pressure improved, okay to continue to hold the lisinopril for now -- If kidney function improved and stabilized, will try to resume lisinopril. -- Check iron study, B12, folate, may consider ROMELIA Thank you for allowing me to participate in your patient's care. It was a pleasure to see Duane. History of Present Illness Reason for Consultation: Acute kidney injury with history of membranous nephropathy. Attending Physician: Ishmael Araya, DO History of Present Illness Mr. Duane Loja is a 57 y o m with PMH of membranous nephropathy and stage IIIa CKD with progressive worsening of kidney function recently, admitted to the hospital with GAYLA. Nephrology consult was requested for further management. Electronic medical records are reviewed in detail during patient's visit. Duane was advised to present to ER yesterday after outpatient labs showing GAYLA with progressive worsening of kidney function. Lab yesterday showed creatinine 4.6. He has been otherwise asymptomatic. Denies any significant shortness of breath, chest pain, lower extremity edema, voiding symptoms, dysuria, gross hematuria or urinary retention. No changes in weight or appetite. No nausea, vomiting, abdominal pain. Does report feeling of fatigue. On admission creatinine was 4.6 which slightly improved to 4.2 this morning. Lab was also notable for anemia, hemoglobin 10.4. INR was 3.8 on admission. Urinalysis with 3+ proteinuria and spot urine showed proteinuria of around 6 g, no hematuria or pyuria. Renal ultrasound and renal artery Doppler was negative for hemodynamic ally significant renal artery stenosis, kidneys are otherwise normal size with slightly increased echogenicity and right kidney with a small lesion suggestive of angiomyolipoma and bilateral kidney has small cyst. Blood pressure was initially elevated but improved this morning. He received 1 L of LR on admission. Reports decent urine output. P.o. intake has been normal. Never smoker. No known family history of CKD or ESKD. Works at [employer]. Lucy was at the bedside during visit. Duane was initially diagnosed with membranous nephropathy in 1998 after he had biopsy for evaluation for nephrotic syndrome. Since then he has been on cyclosporine and kidney function is staying stable with creatinine around 1.3- 1.4. At the time of diagnosis he was also found to have renal vein thrombosis and has been on warfarin since. In 2022 attempt was made to taper him off of cyclosporine since kidney function has been stable more than 20 years however over next few months he again developed high-grade proteinuria and cyclosporine was restarted. Has been on 100 mg twice a day, last cyclosporine trough level was low and another trough level was done yesterday, currently pending. Creatinine was staying around 1.5 over last 2 years although he had repeated episodes of mild GAYLA and variability in creatinine. Since May of this year creatinine has been going up and on 05/31 creatinine 3.1 then slightly improved and down to 2.4 and 1.9 on 07/23. Has been on lisinopril 10 mg daily. Has history of A-fib, was already on warfarin for renal vein thrombosis, also on metoprolol 50 mg twice a day. Has history of gout, has been on allopurinol but no recent gout attack. On Crestor for history of dyslipidemia. No history of coronary artery disease, acute LA or CVA. No history of diabetes. This morning he reports overall feeling well, denies any specific symptoms except fatigue. Creatinine slightly improved to 4.2. Continuing on cyclosporine. Hemoglobin low. Lisinopril has been on hold since admission. Allergies Allergy/AdvReac Type Severity Reaction Status Date / Time NSAIDS (Non-Steroidal Allergy Unknown Unknown Verified 08/02/23 15:19 Anti-Inflamma Home Medications Medication Instructions Recorded Confirmed Type escitalopram oxalate 5 mg tablet 10 mg PO DAILY 01/02/23 08/22/23 History metoprolol succinate 50 mg 50 mg PO BID #180 tabs 06/15/23 08/22/23 Rx tablet,extended release 24 hr lisinopril 10 mg tablet 10 mg PO DAILY #90 tabs 06/29/23 08/22/23 Rx cyclosporine modified 100 mg 100 mg PO BID #180 caps 08/02/23 08/22/23 Rx capsule (Neoral) allopurinol 300 mg tablet 300 mg PO QAM 08/22/23 08/22/23 History cholecalciferol (vitamin D3) 50 50 mcg PO PM 08/22/23 08/22/23 History mcg (2,000 unit) capsule furosemide 20 mg tablet 20 mg PO DAILY PRN ankle edema 08/22/23 08/22/23 History hydrocortisone 2.5 % topical cream 1 applic OR BID PRN hemorrhoids 08/22/23 08/22/23 History with perineal applicator (Anusol-HC) hydrocortisone acetate 25 mg 25 mg OR DAILY PRN Other 08/22/23 08/22/23 History rectal suppository rosuvastatin 40 mg tablet (Crestor) 40 mg PO PM 08/22/23 08/22/23 History warfarin 5 mg tablet 7.5 mg PO UD 08/22/23 08/22/23 History Patient History Medical History Gout Anemia Chronic membranous glomerulonephritis Cushings syndrome Depression Hypercholesterolemia Multinodular thyroid Nephrotic syndrome Renal/ureteral disease 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 Surgical History Status post biopsy of kidney History of colonoscopy History of wisdom tooth extraction S/P thyroid biopsy History of bronchoscopy (~04/2020) Family History Other Hypertension No family history of adverse response to anesthesia Denies family history of Ovarian cancer Prostate cancer Myocardial infarction Breast cancer Colorectal cancer Social History Smoking Status: Never smoker Second Hand Exposure: No; Do You Dip or Chew Tobacco: No; Hx Alcohol Use: No Hx Substance Use: No Preferred Language: Kyrgyz Communication Ability: Effective Visual Impairment: Limited Hearing Ability: Normal Event Decorator Required: No Beliefs That Will Affect Care: None marital status: Current Living Situation: Spouse current occupational status: employed 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 How many Children do You have: 2 Feels Safe at Home: Yes Diet: low salt caffeine: Yes (1 soda daily) Dental Care, Regularly: Yes Physical Activity Frequency: Does not Exercise Seatbelt Use: always Do you think of yourself as: straight/heterosexual Gender Identity: Male Assistive Devices: None Review of Systems Review of Systems: Detailed review of system was done and pertinent positives and negatives are mentioned above. Physical Exam Constitutional: WD/WN, vitals as above no acute distress Eyes: + anicteric sclerae Neck: normal visual inspection Respiratory: normal respiratory effort; no respiratory distress and no cough Auscultation: lungs clear to auscultation bilaterally Cardiovascular: Rate/Rhythm: regular rate and regular rhythm Heart Sounds: normal S1 and normal S2 Extremities: no edema Gastrointestinal (Abdomen): Inspection/Auscultation: abdomen normal to inspection Musculoskeletal: Extremities: extremities normal to inspection Skin: no rashes, warm and dry Neurologic: no focal motor deficits Psychiatric: Orientation: alert and oriented x 3 Affect: euthymic affect Results & Data Vital Signs (Past 12 Hours) Vital Signs Temp Pulse Pulse Pulse Resp BP Pulse Ox 08/23/23 10:57 36.7 C 53 L 18 126/84 98 08/23/23 10:45 51 L 08/23/23 07:29 36.7 C 55 L 18 158/80 H 96 08/23/23 03:36 36.5 C 57 L 16 167/96 H 96 O2 Del Method 08/23/23 10:57 Room Air 08/23/23 10:45 08/23/23 07:29 Room Air 08/23/23 03:36 Room Air PG Care Time/CCT Total # of Minutes Spent Total Time Spent with Patient: Total time spent is greater than 50% in coordination of care (as documented) at patient's floor/unit and/or counseling patient: Coding Level of Care Code 31112 IN/OBS CONSULT LVL 5,80M Diagnoses Acute renal failure (ARF) N17.9 Chronic membranous glomerulonephritis N03.2 Hypertension, unspecified type I10 Hypertension type: unspecified Hx of gout Z87.39 Chronic anemia D64.9 (3) HTN (hypertension) Hypertension type: unspecified Qualified Code(s): I10 - Essential (primary) hypertension
[2023-08-23] MEDS ORDERED: WARFARIN SOD 7.5 MG TAB PO SCH (16:00)
[2023-08-23] MEDS: WARFARIN SOD 5 MG TAB PO ONE (17:40)
--- NOTE | 2023-08-24 06:59 | Hospitalist Progress Note ---
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 Acute Kidney Injury -In the context of membranous glomerulonephritis, CKD, and hx of renal vein thrombosis -HTN, No hematuria, flank pain or evidence of bleeding. No overt volume overload. -Baseline creatinine 1.4 - 2.0. On admission: 4.46. Creatinine trending downward. INR 3.8, slightly supratherapeutic. UA with 1+ blood and protein. -Fe panel wnl, except for low TIBC. B12 and folate WNL. -Renal U/S and renal artery duplex unremarkable, negative for renal artery stenosis -Nephrology consulted, appreciate recommendations. * No indication for dialysis at this time. Keep well-hydrated, monitor intake/output, aim for net positive as he does not have any sign of volume overload * Cyclosporin levels pending. If levels are therapeutic and failing, consider biopsy and/or Rituxiab/steroids * Continue cyclosporin 100 mg. * Hold furosemide, hydrocortisone, lisinopril. If kidney function improved and stabilized, resume lisinopril * Check labs in AM: PT INR, renal function panel. Consider ROMELIA. Elevated INR, on Warfarin -INR 3.8 on admission, goal is 2-3. INR trending downward -Warfarin was held 08/22/23 in the evening, gave 5mg Warfarin 08/23/23 * Changed warfarin schedule to 4 days of 5mg and 3 days of 7.5 mg Hypertension -In the context of membranous glomerulonephritis, CKD, GAYLA * Hold lisinopril * Continue metoprolol Depression, chronic * Continue Lexapro 10 mg Hyperlipidemia, chronic * Continue Rosuvastatin 40 mg Gout, chronic * Hold allopurinol FEN: Carb consistent or DM2 Code status: full code DVT ppx: SCD Held home meds: 1 dose of warfarin held, furosemide, hydrocortisone, lisinopril, allopurinol Consults: nephrology Dispo: telemetry med (2) Chronic membranous glomerulonephritis: (3) Atrial fibrillation: (4) Gout: (5) HTN (hypertension): (6) Pre-diabetes: (7) Multinodular thyroid: Admission and Anticipated Discharge Date Admission Date: August 22, 2023 Supervising Physician Co-Signing Physician Notes I also saw the patient and confirmed ricketts portions of the clinical history and physical examination. I agree with the impression and plan as noted in the medical student and resident documentation above. Patient without complaints today. Appreciate nephrology consultation; Continued improvement in renal function; electrolytes normal. INR at goal today; Coumadin adjusted Subjective No overnight events. No new symptoms or concerns. Patient is feeling a little less fatigued today, but not fully recovered. Headache has resolved. Minor back pain is still present (which he attributes to the hospital bed). [facility] He reports that he has not missed any warfarin doses in the last two weeks, but that his INR has been "all out of wack" lately. His most recent INR was 3.9. He was initially on 5 mg //Mon and 7.5 mg Mon/Mon/Monday/Mon. He was switched to 5mg every day, and then recently was put back on the 5mg/7.5 mg schedule. Review of Systems 2 Review of Systems: See HPI, otherwise negative Physical Exam 2 Physical Exam: Constitutional: well-appearing, no acute distress HEENT: NCAT, no conjunctival injection CV: Bradycardic, regular rhythm. Systolic murmur appreciated, extremities well- perfused, no LE edema Resp: CTABL, no wheezes/rales/rhonchi appreciated,no increased work of breathing GI: Nondistended MSK: No gross deformities appreciated Skin: warm, dry, no rash appreciated Neuro: alert, oriented, no focal neurologic deficits appreciated Results & Data Results & Data Vital Signs (Past 12 Hours) Vital Signs Temp Pulse Pulse Resp BP Pulse Ox O2 Del Method 08/24/23 04:06 97.7 F 52 L 20 123/82 96 Room Air 08/23/23 23:32 98.1 F 65 20 125/78 96 Room Air 08/23/23 23:25 97.9 F 70 20 113/52 L 95 Room Air 08/23/23 22:00 61 08/23/23 19:53 98.1 F 53 L 20 148/86 H 97 Room Air Laboratory Results 08/23/23 07:28 08/23/23 07:28 Medications Administered Current Inpatient Medications Acetaminophen (Acetaminophen 325 Mg Tab) 650 mg PO Q4H PRN PRN Reason: Pain or Fever Stop: 09/22/23 08:59 Last Admin: 08/23/23 09:22 Dose: 650 mg Cyclosporine (Cyclosporine 100 Mg Cap) 100 mg PO BID ARTURO Stop: 09/21/23 20:59 Last Admin: 08/24/23 08:28 Dose: 100 mg Dextrose (Dextrose 50% 50 Ml Syringe) 25 - 50 ml IV UD PRN; Protocol PRN Reason: Hypoglycemia Protocol Stop: 09/21/23 15:30 Escitalopram Oxalate (Escitalopram Oxalate 10 Mg Tab) 10 mg PO DAILY ARTURO Stop: 09/22/23 08:59 Last Admin: 08/24/23 08:28 Dose: 10 mg Glucagon (Glucagon For Inj 1 Mg Vial) 1 mg SQ UD PRN; Protocol PRN Reason: Hypoglycemia Protocol Stop: 09/21/23 15:30 Glucose (Glucose 40% Gel 15 Gm Tube) 15 - 30 gm PO UD PRN; Protocol PRN Reason: Hypoglycemia Protocol Stop: 09/21/23 15:30 Glucose (Glucose 10 Tab/Tube) 4 - 8 tab PO UD PRN; Protocol PRN Reason: Hypoglycemia Treatment Stop: 09/21/23 15:30 Hydralazine HCl (Hydralazine Hcl 20 Mg/Ml Vial) 5 mg IV Q6H PRN PRN Reason: SBP >180, second line Stop: 09/21/23 15:35 Insulin Aspart (Insulin Aspart Per Unit Charge) 0 units SC ACHS [facility] Stop: 09/21/23 16:29 Last Admin: 08/24/23 08:29 Dose: Not Given Labetalol HCl (Labetalol Hcl Iv 5 Mg/Ml 20ml) 5 mg IV Q6H PRN PRN Reason: SBP > 180, 1st line Stop: 09/21/23 15:35 Metoprolol Succinate (Metoprolol Succ 50mg Ext Rel Tab) 50 mg PO BID ARTURO Stop: 09/21/23 20:59 Last Admin: 08/24/23 08:28 Dose: 50 mg Miscellaneous (Carbohydrates For Hypoglycemia ) 15 - 30 gm PO UD PRN PRN Reason: Hypoglycemia Protocol Stop: 09/21/23 15:30 Rosuvastatin Calcium (Rosuvastatin Calcium 20 Mg Tab) 40 mg PO PM [facility] Stop: 09/21/23 20:59 Warfarin Sodium (Warfarin Sod 7.5 Mg Tab) 7.5 mg PO MOWEFR ARTURO Stop: 09/23/23 15:59 Warfarin Sodium (Warfarin Sod 5 Mg Tab) 5 mg PO SUTUTHSA [facility] Stop: 09/23/23 15:59 Resident Supervision Co-Signing Physician Notes I personally spoke to and examined the patient and then discussed the findings/assessment and plan with the medical student and attending physician. Pt doing well this AM. No new concerns. Pt appears well. Clinically well perfused. Non labored breathing. Conversation appropriate. GAYLA ?secondary to membranous nephropathy: Nephro consulted- cyclosporin level pending to determine dose adjustments. Supratherapeutic INR: Pt given decreased dose of warfarin yesterday (5mg instead of 7.5mg)- adjusted weekly warfarin dosing schedule to Monday, Monday, , and Monday 5mg and Monday, Monday, Monday 7.5mg. Continue checking INR daily while hospitalized. Nimisha Vaughn, Family Medicine, PGY-2 Resident Activity Tracking Resident Involvement: Resident Care Provided Care Provided: Adult Hospital Medicine (5) HTN (hypertension) Hypertension type: unspecified Qualified Code(s): I10 - Essential (primary) hypertension
[2023-08-24 09:07] LABS: Basophils # (auto) 0.02 K/uL (0.00-0.20); Basophils % (auto) 0.3 %; Eosinophils % (auto) 1.3 %; Hematocrit (blood only) 32.1 % (42.0-52.0); Hemoglobin 10.6 g/dl (14.0-18.0); Immature Granulocytes # (auto) 0.01 K/uL (0.01-0.20); Immature Granulocytes % (auto) 0.1 %; Lymphocytes # (auto) 1.88 K/uL (1.20-3.40); Mean Corpuscular Hemoglobin 30.1 pg (25.0-34.0); Mean Corpuscular Volume 91.2 fL (80.0-100.0); Mean Platelet Volume 11.4 fL (9.4-12.4); Monocytes # (auto) 0.51 K/uL (0.11-0.59); Monocytes % (auto) 6.5 %; Neutrophils % (auto) 67.8 %; Platelet Count 176 K/uL (130-400); RDW Coefficient of Variation 13.6 % (11.5-14.5); RDW Standard Deviation 45.5 fL (36.4-46.3); Red Blood Count 3.52 M/uL (4.70-6.10); White Blood Count 7.82 K/ul (4.8-10.8)
[2023-08-24 09:22] LABS: Albumin Level 2.9 gm/dl (3.4-5.0); BUN Creatinine Ratio 23.5 (10-20); Calcium 8.2 mg/dl (8.6-10.3); Creatinine Clr Calc Pharmacy 22.3 ml/min; Est GFR (African American) 20.1 ml/min; Est GFR (Non-African American) 17.3 ml/min; Phosphorus 4.3 mg/dl (2.5-4.9); Potassium 4.6 mmol/L (3.5-5.1)
[2023-08-24 09:31] LABS: Prothrombin Time 29.5 Seconds (9.0-12.0)
[2023-08-24 09:43] LABS: Folate (Folic Acid),Ser orPlas 12.05 ng/ml (>5.38)
--- NOTE | 2023-08-24 11:54 | Nephrology Progress Note ---
Date of Service August 24, 2023 Assessment & Plan (1) Acute renal failure (ARF): (2) Chronic membranous glomerulonephritis: (3) HTN (hypertension): (4) Hx of gout: (5) Chronic anemia: Plan Stage IIIa CKD, baseline creatinine 1.4-1.5 with history of membranous nephropathy for almost 25 years, admitted with progressive worsening of kidney function over last 2 months and creatinine of 4.6 on outpatient lab but otherwise asymptomatic. Over last 1 year try titrating off of neural was attempted with recurrence of membranous nephropathy and resumed neural 100 mg twice a day. On admission urinalysis consistent with membranous nephropathy with 5 to 6 g of proteinuria but no hematuria. Renal ultrasound and renal artery Doppler was unremarkable. Initially was quite hypertensive but blood pressure improved. Has history of chronic anemia hemoglobin 10.3-11. Has been on lisinopril which is currently on hold. Unclear etiology for progressive worsening of kidney function, no postrenal obstruction or renovascular disease. Clinically not suggestive of prerenal or volume depletion. ? Progressive worsening of underlying membranous nephropathy as well as significant chronic tubular interstitial changes and fibrosis with history of membranous nephropathy for more than 25 years. INR was 3.8 argues against any new renal vein thrombosis. Kidney function continues to improve slowly, creatinine down to 3.7. Hb 10.4 Cyclosporine trough level pending. -- Continue current dose of Neoral, wait for trough level. -- Advised to keep well-hydrated, monitor intake and output, aim for net positive as he does not have any sign of volume overload. -- Blood pressure improved, okay to continue to hold the lisinopril for now but if kidney function improves and stabilizes, will try to resume lisinopril. -- Check iron study, B12, folate. Admission and Anticipated Discharge Date Admission Date: August 22, 2023 Subjective Duane has been overall feeling well, denies any symptoms. Decent UO. Blood pressure improved. Creatinine down to 3.7 this morning, electrolyte acceptable. Hb stable at 10.4. Review of Systems Review of Systems: Detailed review of system was done and pertinent positives and negatives are mentioned above. Physical Exam Constitutional: WD/WN, vitals as above no acute distress Eyes: + anicteric sclerae Neck: normal visual inspection Respiratory: normal respiratory effort; no respiratory distress and no cough Auscultation: lungs clear to auscultation bilaterally Musculoskeletal: Extremities: extremities normal to inspection Skin: no rashes, warm and dry Neurologic: no focal motor deficits Psychiatric: Orientation: alert and oriented x 3 Affect: euthymic affect Results & Data Vital Signs (Past 12 Hours) Vital Signs Temp Pulse Pulse Resp BP Pulse Ox O2 Del Method 08/24/23 08:00 48 L 08/24/23 07:30 36.5 C 59 L 18 119/77 96 Room Air 08/24/23 04:06 36.5 C 52 L 20 123/82 96 Room Air PG Care Time/CCT Total # of Minutes Spent Total Time Spent with Patient: Total time spent is greater than 50% in coordination of care (as documented) at patient's floor/unit and/or counseling patient: Coding Level of Care Code 38634 SUB INP/OBS CARE 2/35MIN Diagnoses Acute renal failure (ARF) N17.9 Chronic membranous glomerulonephritis N03.2 Hypertension, unspecified type I10 Hypertension type: unspecified Hx of gout Z87.39 Chronic anemia D64.9 (3) HTN (hypertension) Hypertension type: unspecified Qualified Code(s): I10 - Essential (primary) hypertension
[2023-08-24] MEDS ORDERED: WARFARIN SOD 5 MG TAB PO SCH (16:00)
[2023-08-24] MEDS: WARFARIN SOD 5 MG TAB PO SCH (17:14)
[2023-08-25 06:50] LABS: Basophils # (auto) 0.03 K/uL (0.00-0.20); Basophils % (auto) 0.4 %; Eosinophils # (auto) 0.14 K/uL (0.00-0.50); Eosinophils % (auto) 1.7 %; Hematocrit (blood only) 30.5 % (42.0-52.0); Hemoglobin 10.3 g/dl (14.0-18.0); Immature Granulocytes # (auto) 0.02 K/uL (0.01-0.20); Immature Granulocytes % (auto) 0.2 %; Lymphocytes # (auto) 2.81 K/uL (1.20-3.40); Mean Corpuscular Hemoglobin 30.7 pg (25.0-34.0); Mean Corpuscular Hgb Conc 33.8 g/dL (32.0-36.0); Mean Corpuscular Volume 90.8 fL (80.0-100.0); Monocytes # (auto) 0.68 K/uL (0.11-0.59); Monocytes % (auto) 8.2 %; Neutrophils # (auto) 4.59 K/uL (1.40-6.50); Neutrophils % (auto) 55.5 %; Platelet Count 167 K/uL (130-400); RDW Coefficient of Variation 13.6 % (11.5-14.5); RDW Standard Deviation 45.1 fL (36.4-46.3); Red Blood Count 3.36 M/uL (4.70-6.10); White Blood Count 8.27 K/ul (4.8-10.8)
[2023-08-25 07:15] LABS: INR 2.5 (0.9-1.1); Prothrombin Time 24.9 Seconds (9.0-12.0)
[2023-08-25 07:17] LABS: Albumin Level 2.8 gm/dl (3.4-5.0); BUN Creatinine Ratio 23.4 (10-20); Calcium 8.3 mg/dl (8.6-10.3); Creatinine Clr Calc Pharmacy 23.7 ml/min; Est GFR (African American) 21.5 ml/min; Est GFR (Non-African American) 18.5 ml/min; Phosphorus 4.8 mg/dl (2.5-4.9); Potassium 4.8 mmol/L (3.5-5.1)
--- NOTE | 2023-08-25 08:39 | Hospitalist Progress Note ---
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 Acute Kidney Injury -In the context of membranous glomerulonephritis, CKD, and hx of renal vein thrombosis -HTN, No hematuria, flank pain or evidence of bleeding. No overt volume overload. -Baseline creatinine 1.4 - 2.0. On admission: 4.46. Creatinine trending downward. INR 3.8, slightly supratherapeutic. UA with 1+ blood and protein. -Fe panel wnl, except for low TIBC. B12 and folate WNL. -Renal U/S and renal artery duplex unremarkable, negative for renal artery stenosis -Nephrology consulted, appreciate recommendations. * No indication for dialysis at this time. Keep well-hydrated, monitor intake/output, aim for net positive as he does not have any sign of volume overload * Cyclosporin levels pending. If levels are therapeutic and failing, consider biopsy and/or Rituximab/steroids * Continue cyclosporin 100 mg. * Hold furosemide, hydrocortisone, lisinopril. If kidney function improved and stabilized, resume lisinopril * Check labs in AM: PT INR, renal function panel. Consider ROMELIA. Elevated INR, on Warfarin -INR 3.8 on admission, goal is 2-3. INR trending downward. Currently at goal. -Warfarin was held 08/22/23 in the evening, gave 5mg Warfarin 08/23/23 * Changed warfarin schedule to 4 days of 5mg and 3 days of 7.5 mg * Trend PT/INR to ensure that it remains therapeutic on new warfarin dose Hypertension -In the context of membranous glomerulonephritis, CKD, GAYLA * Hold lisinopril * Continue metoprolol Depression, chronic * Continue Lexapro 10 mg Hyperlipidemia, chronic * Continue Rosuvastatin 40 mg Gout, chronic * Hold allopurinol FEN: Carb consistent or DM2 Code status: full code DVT ppx: SCD Held home meds: 1 dose of warfarin held, furosemide, hydrocortisone, lisinopril, allopurinol Consults: nephrology Dispo: telemetry med (2) Chronic membranous glomerulonephritis: (3) Atrial fibrillation: (4) Gout: (5) HTN (hypertension): (6) Pre-diabetes: (7) Multinodular thyroid: Admission and Anticipated Discharge Date Admission Date: August 22, 2023 Supervising Physician Co-Signing Physician Notes I personally examined the patient and verified ricketts points of history and exam, discussed case, and agree with decision making and plan documented by Dr. Nava. Continued improvement of renal function, patient optimistic for discharge soon, appreciate nephrology recommendations. Subjective No acute events overnight. Patient has no acute complaints. He wants to know if he can go tomorrow. Otherwise, he has no complaints. Review of Systems Review of Systems: All systems reviewed & are unremarkable except as noted in HPI & below Physical Exam Physical Exam: General: no acute distress, speaking in full sentences Resp: good inspiratory effort, no labored breathing HEENT: conjunctivae appear clear, no audible congestion, no swelling noted face or lips Skin: skin appears dry, normal coloration, no rash visible on exposed skin areas Neuro: alert and oriented x3, no focal deficits appreciated Psych: euthymic affect, pleasant and interactive, logical thought process Results & Data Results & Data Vital Signs (Past 12 Hours) Vital Signs Temp Pulse Pulse Resp BP Pulse Ox O2 Del Method 08/25/23 07:22 36.7 C 55 L 17 136/82 98 Room Air 08/25/23 05:48 51 L 08/25/23 04:28 36.6 C 53 L 20 119/75 96 Room Air 08/24/23 23:53 36.7 C 55 L 20 148/89 H 96 Room Air 08/24/23 22:00 53 L Resident Activity Tracking Resident Involvement: Resident Care Provided Care Provided: Adult Hospital Medicine (5) HTN (hypertension) Hypertension type: unspecified Qualified Code(s): I10 - Essential (primary) hypertension
--- NOTE | 2023-08-25 10:39 | Nephrology Progress Note ---
Date of Service August 25, 2023 Assessment & Plan (1) Acute renal failure (ARF): (2) Chronic membranous glomerulonephritis: (3) HTN (hypertension): (4) Hx of gout: (5) Chronic anemia: Plan Stage IIIA CKD, baseline creatinine 1.4-1.5 mg/dl with history of membranous nephropathy for almost 25 years, admitted with progressive worsening of kidney function over last 2 months and creatinine of 4.6 on outpatient lab but otherwise asymptomatic. Over last 1 year try titrating off of neural was attempted with recurrence of membranous nephropathy and resumed neural 100 mg twice a day. On admission urinalysis consistent with membranous nephropathy with 5 to 6 g of proteinuria but no hematuria. Renal ultrasound and renal artery Doppler was unremarkable. Initially was quite hypertensive but blood pressure improved. Has history of chronic anemia hemoglobin 10.3-11. Has been on lisinopril which is currently on hold. Unclear etiology for progressive worsening of kidney function, no postrenal obstruction or renovascular disease. Clinically not suggestive of prerenal or v olume depletion. ? Progressive worsening of underlying membranous nephropathy as well as significant chronic tubular interstitial changes and fibrosis with history of membranous nephropathy for more than 25 years. INR was 3.8 argues against any new renal vein thrombosis. Kidney function continues to improve slowly, creatinine down to 3.5. Hb 10.3. Cyclosporine trough level pending. -- Continue current dose of Neoral, wait for trough level. -- Advised to keep well-hydrated, monitor intake and output, aim for net positive as he does not have any sign of volume overload. -- continue to hold the lisinopril for now. -- Consider discharge over the weekend if kidney function continues to improve Admission and Anticipated Discharge Date Admission Date: August 22, 2023 Subjective Duane has been overall feeling well, no fever, SOB. . Decent UO. blood pressure fair. Creatinine down to 3.5, electrolyte acceptable. Review of Systems Review of Systems: Detailed review of system was done and pertinent positives and negatives are mentioned above. Physical Exam Constitutional: WD/WN, vitals as above no acute distress Eyes: + anicteric sclerae Respiratory: Auscultation: lungs clear to auscultation bilaterally Musculoskeletal: Extremities: extremities normal to inspection Skin: no rashes, warm and dry Neurologic: no focal motor deficits Psychiatric: Orientation: alert and oriented x 3 Affect: euthymic affect Results & Data Vital Signs (Past 12 Hours) Vital Signs Temp Pulse Pulse Resp BP Pulse Ox O2 Del Method 08/25/23 07:22 36.7 C 55 L 17 136/82 98 Room Air 08/25/23 05:48 51 L 08/25/23 04:28 36.6 C 53 L 20 119/75 96 Room Air 08/24/23 23:53 36.7 C 55 L 20 148/89 H 96 Room Air PG Care Time/CCT Total # of Minutes Spent Total Time Spent with Patient: Total time spent is greater than 50% in coordination of care (as documented) at patient's floor/unit and/or counseling patient: Coding Level of Care Code 72214 SUB INP/OBS CARE 2/35MIN Diagnoses Acute renal failure (ARF) N17.9 Chronic membranous glomerulonephritis N03.2 Hypertension, unspecified type I10 Hypertension type: unspecified Hx of gout Z87.39 Chronic anemia D64.9 (3) HTN (hypertension) Hypertension type: unspecified Qualified Code(s): I10 - Essential (primary) hypertension
[2023-08-25] MEDS: WARFARIN SOD 7.5 MG TAB PO SCH (16:18)
--- NOTE | 2023-08-26 07:41 | Hospitalist Progress Note ---
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 Acute Kidney Injury -In the context of membranous glomerulonephritis, CKD, and hx of renal vein thrombosis -HTN, No hematuria, flank pain or evidence of bleeding. No overt volume overload. -Baseline creatinine 1.4 - 2.0. On admission: 4.46. Creatinine trending downward. INR 3.8, slightly supratherapeutic. UA with 1+ blood and protein. -Fe panel wnl, except for low TIBC. B12 and folate WNL. -Renal U/S and renal artery duplex unremarkable, negative for renal artery stenosis -Nephrology consulted, appreciate recommendations. * No indication for dialysis at this time. Keep well-hydrated, monitor intake/output, aim for net positive as he does not have any sign of volume overload * Cyclosporin levels pending. If levels are therapeutic and failing, consider biopsy and/or Rituximab/steroids * Continue cyclosporin 100 mg. * Hold furosemide, hydrocortisone, lisinopril. If kidney function improved and stabilized, resume lisinopril * Check labs in AM: PT INR, renal function panel. Consider ROMELIA. Elevated INR, on Warfarin -INR 3.8 on admission, goal is 2-3. INR trending downward. Currently at goal. -Warfarin was held 08/22/23 in the evening, gave 5mg Warfarin 08/23/23 * Changed warfarin schedule to 4 days of 5mg and 3 days of 7.5 mg * Trend PT/INR to ensure that it remains therapeutic on new warfarin dose Hypertension -In the context of membranous glomerulonephritis, CKD, GAYLA * Hold lisinopril * Continue metoprolol Depression, chronic * Continue Lexapro 10 mg Hyperlipidemia, chronic * Continue Rosuvastatin 40 mg Gout, chronic * Hold allopurinol FEN: Carb consistent or DM2 Code status: full code DVT ppx: SCD Held home meds: 1 dose of warfarin held, furosemide, hydrocortisone, lisinopril, allopurinol Consults: nephrology Dispo: telemetry med (2) Chronic membranous glomerulonephritis: (3) Atrial fibrillation: (4) Gout: (5) HTN (hypertension): (6) Pre-diabetes: (7) Multinodular thyroid: Admission and Anticipated Discharge Date Admission Date: August 22, 2023 Review of Systems Review of Systems: As per HPI. Results & Data Results & Data Vital Signs (Past 12 Hours) Vital Signs Temp Pulse Pulse Resp BP Pulse Ox O2 Del Method 08/26/23 07:31 50 L 08/26/23 03:31 36.6 C 52 L 18 122/79 97 Room Air 08/25/23 23:04 36.7 C 56 L 18 155/88 H 97 Room Air (5) HTN (hypertension) Hypertension type: unspecified Qualified Code(s): I10 - Essential (primary) hypertension
[2023-08-26 08:30] LABS: Albumin Level 2.8 gm/dl (3.4-5.0); Calcium 8.6 mg/dl (8.6-10.3); Creatinine Clr Calc Pharmacy 25.3 ml/min; Est GFR (African American) 23.6 ml/min; Est GFR (Non-African American) 20.4 ml/min; Phosphorus 4.6 mg/dl (2.5-4.9); Potassium 5.1 mmol/L (3.5-5.1)
--- NOTE | 2023-08-26 10:48 | Nephrology Progress Note ---
Date of Service August 26, 2023 Assessment & Plan (1) Acute renal failure (ARF): Plan: Non-oliguric. Creatinine continues to trend down. Volume status is acceptable. Electrolytes normal. Will continue to hold RAASi now. Renal US and renal duplex reassuring. Findings suggestive of acute primary membranous nephropathy. Continue Neoral 100 mg BID. Repeat a metabolic profile on Monday or Monday. Follow up with Dr. Latham in the nephrology clinic next week () as scheduled. (2) Chronic membranous glomerulonephritis: Plan: CKD III A3 (baseline creatinine ~1.5 mg/dL). History of primary membranous nephropathy. PLA2r + in blood. Initial diagnosis in the . Evidence of recurrence after attempting to wean cyclosporine. Close outpatient follow up will be required. Lisinopril has been held due to GAYLA. Cyclosporine trough level is pending. Consider dose reduction of rosuvastatin to 10 mg daily pending continued improvement in kidney function. (3) HTN (hypertension): Plan: Euvolemic. BP acceptable. Continue metoprolol succinate as Rx. Furosemide held. (4) Hx of gout: Plan: Allopurinol 300 mg daily. (5) Chronic anemia: Plan: Chronic, stable. Admission and Anticipated Discharge Date Admission Date: August 22, 2023 Subjective No acute events overnight. No complaints this AM. Duane feels well. He denies fluid retention or edema. BP acceptable. He would like to be discharged home today. Review of Systems Review of Systems: All systems reviewed & are unremarkable except as noted in HPI & below Physical Exam Constitutional: well developed; no acute distress Eyes: + anicteric sclerae; no corneal abnormal ity ENMT: Mouth: no oral mucosal abnormality and oral mucous membranes not dry Neck: normal visual inspection and trachea midline Respiratory: normal respiratory effort Auscultation: lungs clear to auscultation bilaterally Cardiovascular: Rate/Rhythm: regular rate Heart Sounds: normal S1 and normal S2 Extremities: no edema Musculoskeletal: Extremities: no cyanosis and no clubbing Skin: normal turgor; no lesions Neurologic: Motor/Sensory: no tremor and no asterixis Psychiatric: Orientation: alert and oriented x 3 Results & Data Vital Signs (Past 12 Hours) Vital Signs Temp Pulse Pulse Resp BP Pulse Ox O2 Del Method 08/26/23 08:35 36.8 C 56 L 18 156/92 H 98 Room Air 08/26/23 07:31 50 L 08/26/23 03:31 36.6 C 52 L 18 122/79 97 Room Air 08/25/23 23:04 36.7 C 56 L 18 155/88 H 97 Room Air Laboratory Results Laboratory Results - last 24 hr 08/22/23 08/25/23 08/25/23 19:49 12:09 17:10 Sodium Potassium Chloride Carbon Dioxide Anion Gap BUN Creatinine Est Cr Clr Drug Dosing Est GFR ( Amer) Est GFR (Non-Af Amer) BUN/Creatinine Ratio Glucose POC Glucose 87 88 Calcium Phosphorus Albumin Cyclosporine 212 08/25/23 08/26/23 08/26/23 20:00 07:25 08:20 Sodium 137 Potassium 5.1 Chloride 108 H Carbon Dioxide 23 Anion Gap 6 BUN 81 H Creatinine 3.24 H Est Cr Clr Drug Dosing 25.3 Est GFR ( Amer) 23.6 Est GFR (Non-Af Amer) 20.4 BUN/Creatinine Ratio 25.0 H Glucose 104 H POC Glucose 97 106 H Calcium 8.6 Phosphorus 4.6 Albumin 2.8 L Cyclosporine PG Care Time/CCT Total # of Minutes Spent Total Time Spent with Patient: Total time spent is greater than 50% in coordination of care (as documented) at patient's floor/unit and/or counseling patient: Coding Level of Care Code 46762 SUB INP/OBS CARE 3/50MIN Diagnoses Acute renal failure (ARF) N17.9 Chronic membranous glomerulonephritis N03.2 Hypertension, unspecified type I10 Hypertension type: unspecified Hx of gout Z87.39 Chronic anemia D64.9 (3) HTN (hypertension) Hypertension type: unspecified Qualified Code(s): I10 - Essential (primary) hypertension
--- NOTE | 2023-08-26 12:57 | Discharge Summary ---
Date of Service August 26, 2023 Admission HPI Per Admitting Provider Duane is seen at the bedside with his Lucy present. had bloodwork done in advance of his appointment with nephrology next month and his creatinine had risen significantly with nephrotic proteinurea. Was referred to the ER for further care. Other than that has felt OK Denies leg swelling No fevers, chills, or sweats Does endorse some mild fatigue no cough, no URI symptoms. no abdominal swelling. no nausea or vomiting Patient reports he has a hx of glomerulonephritis - Diagnosed in 1998. Has been on cyclosporin since that time. In June his Cr started torise as he was cutting down on the cyclosporin, so was placed back on 100mg daily in July, then June was increased back to 200mg twice daily. Has not had improvement in his renal function despite this. Eating and drinking normally. Taking lisinopril as directed in the morning, did take lisinopril this AM. Taking warfarin as direct. 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 Has not missed any doses of warfarin in the last 2 weeks. Misses a dose rarely, maybe 1 dose missed a month and would always take in the morning if he forgot. No back or flank pain. No abdominal pain. No hematuria. Peeing normally. No oliguria/anuria Hx of a thyroid nodule following with Dr. Russo. history of Afib. On warfarin. Doing well on MTP 50mg BID. takes allopurinol for gout takes crestor for hld No history of [place]/CVA. INR 3.8 today Medical History: Reviewed Medications: Reviewed Surgical History: Reviewed Family history: Reviewed Allergies: Reviewed Social History: Reviewed Code Status: Full Admission Exam Per Admitting Provider General: A&Ox3. NAD. Cooperative. HEENT: Atraumatic, normocephalic. Vision/hearing intact Pulm: CTAB A&P. -wheezes, -rales, -rhonchi. Symmetrical chest rise. No increased work of breathing. No respiratory distress. Cardiac: RRR, -mrg. Radial pulses intact and symmetrical. Abdominal: Nontender, nondistended, soft. BS present. No CVA tenderness. No hematomas. Ext: No pitting edema Principal Diagnosis Acute Renal Failure Discharge Exam Constitutional WD/WN, vitals as above Eyes PERRL, conjunctivae normal, anicteric sclerae Respiratory normal respiratory effort, lungs clear to auscultation Cardiovascular Rate/Rhythm: regular rate and regular rhythm Heart Sounds: normal S1, normal S2 and + murmur (Mild systolic murmur I/) Gastrointestinal (Abdomen) normal bowel sounds, soft, nontender, no hepatosplenomegaly Psychiatric A+Ox3, euthymic affect Discharge Data Allergies Allergy/AdvReac Type Severity Reaction Status Date / Time NSAIDS (Non-Steroidal Allergy Unknown Unknown Verified 08/02/23 15:19 Anti-Inflamma Consultations 08/22/23 14:57 ED Decision to Admit Stat 08/22/23 18:37 Consult Nephrology Routine Ordered Studies 08/23/23 US duplex renal artery Urgent IMPRESSION: 1. No sonographic evidence for renal artery stenosis. 2. Mild increase in echogenicity, similar to prior ultrasound. 3. No significant change in a 1.2 cm echogenic left renal lesion which favors an angiomyolipoma. 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 Acute Kidney Injury -In the context of membranous glomerulonephritis, CKD, and hx of renal vein thrombosis -HTN, No hematuria, flank pain or evidence of bleeding. No overt volume overload. -Baseline creatinine 1.4 - 2.0. On admission: 4.46. Creatinine trending downward. INR 3.8, slightly supratherapeutic. UA with 1+ blood and protein. -Fe panel wnl, except for low TIBC. B12 and folate WNL. -Renal U/S and renal artery duplex unremarkable, negative for renal artery stenosis -Creatinine downtrending 3.24 on day of discharge. -Nephrology consulted, appreciate recommendations. -No indication for dialysis at this time. Keep well-hydrated, monitor intake/output, aim for net positive as he does not have any sign of volume overload -Findings suggestive of acute primary membranous nephropathy. -Continue Neoral 100mg BID, repeat metabolic panel Monday or Monday. -F/u with Dr. Latham 08/30. -Patient verbalized he will go Monday or Monday for blood work and then f/u with nephrology . Elevated INR, on Warfarin -INR 3.8 on admission, goal is 2-3. INR trended down to therapeutic range before discharge (2.5). -Told patient okay to continue home dosing of 5mg 4 days a week and 7.5mg 3 days a week and follow up with anticoagulation clinic. Hypertension -In the context of membranous glomerulonephritis, CKD, GAYLA -Hold lisinopril while not at baseline creatinine. -Continue metoprolol Hyperlipidemia, chronic -Given reduced GFR <30, changed Rosuvastatin from 40mg to 10mg with new script sent to patient's pharmacy. Total Time Total Time Spent Total Time Spent (In Minutes): 38. Total Time Includes: Examination of the Patient, Discharge Planning, Medication Reconciliation and Communication With Other Providers Discharge Plan Discharge Items Patient Disposition: Home - Self-Care Reason For Visit: NONANURIC AOC CKD/ARF, GLOMERULONEPHRITIS Discharge Diagnosis: ARF, Glomerulonephritis Activity: Per Instructions section Non-emergency contact: Primary Care Provider and Genetics Nurse Call non-emergency contact if: your symptoms worsen, your pain is worsening and your temperature is above 101 Follow-up/Referrals: Tasneem Russo MD [Primary Care Provider] - 09/01/23 1:00 pm Diet: Regular Ambulatory Orders: Basic Metabolic Panel (Routine) Timeframe: 3 Days Location: Determined by Patient Ordered By: Gino Thompson Attending Provider Instructions: You came into the hospital due to worsening kidney function seen on blood work. During your stay your kidney function was monitored while we gave you fluid and made sure you had good hydration. As part of the work up to determine the cause your blood work and vasculature (looked at on ultrasound) looked normal. Your kidney function has continued to improve throughout your stay and at this point we think it is okay for you to continue care in the outpatient setting. Please continue your home medications as below. Hold on taking lisinopril or furosemide until your acute renal failure has fully healed. We adjusted your dose of rosuvastatin (Crestor) to 10mg due to the altered kidney function - please sweet pickle maker the updated script from the pharmacy. You will have an appointment with Dr. Latham on 08/30 at 3PM. Please obtain repeat blood work this coming week either Monday or Monday to recheck kidney function. Pending Studies at Discharge: No Stand-Alone Forms: My [facility], Smoking Cessation Medications and DC Order Prescriptions: New rosuvastatin 10 mg tablet 10 mg PO DAILY Qty: 30 0RF Continued metoprolol succinate 50 mg tablet extended release 24 hr 50 mg PO BID Qty: 180 3RF Rx Instructions: 1 tablet twice per day escitalopram oxalate 5 mg tablet 10 mg PO DAILY cyclosporine modified [Neoral] 100 mg capsule 100 mg PO BID Qty: 180 3RF hydrocortisone [Anusol-HC] 2.5 % cream with perineal applicator 1 applic MD BID PRN (Reason: hemorrhoids) warfarin 5 mg tablet 7.5 mg PO UD Protocol: Dose Management Condition: Monday Dose/Route: 7.5 mg Instruction: 1.5 x 5 mg tablets Condition: Monday Dose/Route: 7.5 mg Instruction: 1.5 x 5 mg tablets Condition: Monday Dose/Route: 5 mg Instruction: 1 x 5 mg tablet Condition: Monday Dose/Route: 7.5 mg Instruction: 1.5 x 5 mg tablets Condition: Dose/Route: 5 mg Instruction: 1 x 5 mg tablet Condition: Monday Dose/Route: 7.5 mg Instruction: 1.5 x 5 mg tablets Condition: Monday Dose/Route: 5 mg Instruction: 1 x 5 mg tablet Protocol Text: Adjustment Start Date: Monday08/08/23 INR Value: 2.9 INR Date: 08/08/23 Recheck Date: 08/15/23 Rx Instructions: 5 mg- Monday, and Monday ; 7.5 rest of the days ( Monday, Monday, Monday, Monday) allopurinol 300 mg tablet 300 mg PO QAM Rx Instructions: TAKE 1 TABLET ORALLY DAILY IN THE MORNING cholecalciferol (vitamin D3) 50 mcg (2,000 unit) capsule 50 mcg PO PM Held lisinopril 10 mg tablet 10 mg PO DAILY Qty: 90 3RF Hold Instructions: Resume on 09/01/23. Hold while acute renal failure healing hydrocortisone acetate 25 mg suppository 25 mg MD DAILY PRN (Reason: Other) Hold Instructions: Resume on 09/01/23. Hold while acute renal failure healing. furosemide 20 mg tablet 20 mg PO DAILY PRN (Reason: ankle edema) Hold Instructions: Resume on 09/01/23. Hold while acute renal failure still healing. Rx Instructions: 20 mg orally as needed for ankle edema; Discontinued rosuvastatin [Crestor] 40 mg tablet 40 mg PO PM Discharge Orders: Discharge Order (Routine); Ordered 08/26/23 Ordered By: Gino Oviedo Admission Data Admit Date/Time: 08/22/23 15:35 Attending Provider: Kimberly Clark Admit Provider: Julio Rae Primary Care Provider: Tasneem Russo Other Providers: Julio Rae; Rizwan Latham Other Interventions: Discharge Summary Assessment (RN) Last Done: 08/26/23 13:12 Supervising Physician Co-Signing Physician Notes I personally examined the patient and verified ricketts points of history and exam, discussed case, and agree with decision making and plan documented by Dr. Oviedo. Patient on admission for acute renal failure in setting of chronic membranous glomerulonephritis, renal function has been improving, nephrology following, appreciate recommendations. Advised to continue cyclosporine at current dose and to hold lisinopril, has follow-up with nephrology 08/31/2023. Repeat metabolic panel ordered for patient to obtain in 2 to 3 days. INR stable, statin dose reduced for renal function. Patient appears comfortable, lungs clear b/l to auscultation, regular rate and rhythm, no acute distress. Patient stable for discharge. Resident Activity Tracking Resident Involvement: Resident Care Provided Care Provided: Adult Hospital Medicine
== END 2023-08-26 14:45 | disposition home or self-care (01) | DRG 684 ==
LOC: ED 13:53 → SUATTDRO 15:35 → 2W 15:35

== ENCOUNTER 2023-11-10 13:04 | Inpatient (IN) ==
[2023-11-10 13:50] LABS: Basophils # (auto) 0.03 K/uL (0.00-0.20); Basophils % (auto) 0.3 %; Eosinophils # (auto) 0.11 K/uL (0.00-0.50); Hematocrit (blood only) 29.8 % (42.0-52.0); Hemoglobin 10.5 g/dl (14.0-18.0); Immature Granulocytes # (auto) 0.03 K/uL (0.01-0.20); Immature Granulocytes % (auto) 0.3 %; Lymphocytes # (auto) 1.91 K/uL (1.20-3.40); Lymphocytes % (auto) 17.2 %; Mean Corpuscular Hemoglobin 30.3 pg (25.0-34.0); Mean Corpuscular Hgb Conc 35.2 g/dL (32.0-36.0); Mean Corpuscular Volume 86.1 fL (80.0-100.0); Mean Platelet Volume 11.1 fL (9.4-12.4); Monocytes # (auto) 0.87 K/uL (0.11-0.59); Monocytes % (auto) 7.8 %; Neutrophils # (auto) 8.15 K/uL (1.40-6.50); Neutrophils % (auto) 73.4 %; Platelet Count 193 K/uL (130-400); RDW Coefficient of Variation 12.2 % (11.5-14.5); RDW Standard Deviation 38.7 fL (36.4-46.3); Red Blood Count 3.46 M/uL (4.70-6.10)
[2023-11-10 13:54] LABS: Appearance Urine Clear (Clear); Bacteria Urine Automated None Seen (None Seen); Bilirubin Urine Negative (Negative); Blood Urine 1+ (Negative); Color Urine Yellow; Epithelial Cell Urine Auto 0-2 /hpf (0-2); Glucose Urine UA Trace (Negative); Ketones Urine Negative (Negative); Leukocyte Esterase Urine Negative (Negative); Nitrite Urine Negative (Negative); Protein Urine 3+ (Negative); RBC Urine Automated 0-2 /hpf (0-2); Specific Gravity Urine 1.014 (1.000-1.030); Urobilinogen Urine Negative (Negative); WBC Urine Automated 0-5 /hpf (0-5); pH Urine 6.5 (4.5-7.5)
[2023-11-10 14:07] LABS: Albumin Globulin Ratio 1.1 (0.9-2); Albumin Level 3.5 gm/dl (3.4-5.0); Bilirubin,Total 0.4 mg/dl (0.2-1.0); Calcium 7.6 mg/dl (8.6-10.3); Est GFR (African American) 7.5 ml/min; Est GFR (Non-African American) 6.5 ml/min; Globulin 3.3 gm/dl (2.5-4.0); Phosphorus 8.9 mg/dl (2.5-4.9); Potassium 4.4 mmol/L (3.5-5.1); Total Protein 6.8 gm/dl (6.0-8.3)
[2023-11-10 14:12] LABS: Troponin I High Sensitivity 13.3 pg/ml (0-20)
[2023-11-10 14:23] LABS: BUN Creatinine Ratio 16.7 (10-20)
--- NOTE | 2023-11-10 14:27 | Emergency Department Note ---
Impression & Plan Acute renal failure ED Provider Note HISTORY OF PRESENT ILLNESS: Patient is a 57-year-old male presenting with elevated creatinine. Patient was having routine lab work done prior to his nephrology appointment on 11/20/2023 and he was called by his doctor that his creatinine was elevated at over 8 and was referred to the emergency department. Patient reports that a week ago he and his both had what they thought was a viral illness and a cold. Patient reports he been doing well this week. He did have some subjective fevers and chills intermittently throughout the week and a slight decreased appetite. He reports he has been making a good amount of urine. He has a history of glomerulonephritis and was admitted in August for similar issue. He denies any vomiting. Denies any chest pain or shortness of breath. ROS: as above PHYSICAL EXAM: Constitutional: Patient appears in no acute distress. HENT: Head: Normocephalic and atraumatic. Eyes: EOMI, PERRL Mouth/Throat: Mucous membranes moist. Neck: Trachea midline. Neck supple. Cardiovascular: RRR, No murmurs, rubs or gallops. Intact distal pulses. Pulmonary/Chest: No respiratory distress. Breath sounds clear and equal bilaterally. No wheezes or rales. Abdominal: Abdomen soft, no tenderness, rebound or guarding. Musculoskeletal: No edema, tenderness or deformity noted. Skin: Warm and dry. No rash, erythema, pallor or cyanosis Psychiatric: Appropriate mood and affect for situation. Neurological: Alert and keenly responsive. CN II-XII grossly intact, moving all extremities equally and fully. MDM: - Vitals signs showed hypertension - History obtained via patient. History as above. - Chronic conditions affecting care: HLD; chronic membranous glomerulonephritis; renal vein thrombosis; HTN - Differential diagnoses include, but are not limited to: Electrolyte abnormality; obstructive pathology; glomerulonephritis; dehydration - Order placed for continuous cardiac monitoring. At this time, monitor showed rate of 69 bpm with normal sinus rhythm, per my interpretation. - External medical records reviewed. Nephrology on-call visit note dated today was reviewed. Patient's creatinine previous to today's lab draw was 2.1. - EKG interpreted by myself showed normal sinus rhythm. Rate 67 bpm. QT 450. No acute ischemic changes. - Laboratory workup interpreted by myself showed slight leukocytosis (WBC 11.10); anemia (Hgb 10.5); hyponatremia (Na 134); elevated anion gap (15); elevated BUN (140); elevated creatinine (8.37); elevated phosphorous (8.9); hypocalcemia (Ca 7.6); transaminitis (AST 51; ALT 55); normal troponin; normal procalcitonin; elevated lipase (302) - UA negative for infection - Viral respiratory panel negative - Renal US negative for hydronephrosis. Noted to have mild increased cortical echogenicity concerning for medical renal disease. - Patient given 1L NS. - Discussion was had with [employer]er [employer] about patient's case and need for admission - Hospitalist, Dr. Rae, consulted for admission - [facility] 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 on warfarin Depression (Chronic) Renal vein thrombosis Systolic murmur at cardiac apex Mitral regurgitation Pulmonary nodules (Acute) Encounter for residential current cyclosporin A therapy Abnormal CT scan of lung Dyslipidemia Vitamin D deficiency Gastroesophageal reflux disease Drug-induced anemia Hemorrhoids Medical History Chronic anemia Chronic membranous glomerulonephritis Acute renal failure (ARF) Atrial fibrillation Pre-diabetes Multinodular thyroid Hx of gout HTN (hypertension) Gout Anemia Chronic membranous glomerulonephritis Cushings syndrome Depression Hypercholesterolemia Multinodular thyroid Nephrotic syndrome Renal/ureteral disease Vena cava thrombosis Surgical History Status post biopsy of kidney History of colonoscopy History of wisdom tooth extraction S/P thyroid biopsy History of bronchoscopy (~04/2020) Family History Other Hypertension No family history of adverse response to anesthesia Denies family history of Ovarian cancer Prostate cancer Myocardial infarction Breast cancer Colorectal cancer Social History Smoking Status: Never smoker Second Hand Exposure: No; Do You Dip or Chew Tobacco: No; Hx Alcohol Use: No Hx Substance Use: No Preferred Language: Zambian Communication Ability: Effective Visual Impairment: Limited Hearing Ability: Normal 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 How many Children do You have: 2 Feels Safe at Home: Yes Diet: low salt caffeine: Yes (1 soda daily) Dental Care, Regularly: Yes Physical Activity Frequency: Does not Exercise Seatbelt Use: always Do you think of yourself as: straight/heterosexual Gender Identity: Male Assistive Devices: None Allergies Allergies Allergy/AdvReac Type Severity Reaction Status Date / Time NSAIDS (Non-Steroidal Allergy Unknown Unknown Verified 09/11/23 15:36 Anti-Inflamma Home Meds Home Medications Medication Instructions Recorded Confirmed escitalopram oxalate 5 mg tablet 10 mg PO QAM 01/02/23 11/10/23 allopurinol 300 mg tablet 300 mg PO QAM 08/22/23 11/10/23 cholecalciferol (vitamin D3) 50 50 mcg PO PM 08/22/23 11/10/23 mcg (2,000 unit) capsule warfarin 5 mg tablet 7.5 mg PO UD 08/22/23 11/10/23 rosuvastatin 40 mg tablet (Crestor) 40 mg PO PM 11/10/23 11/10/23 Previous Rx's Medication Instructions Recorded metoprolol succinate 50 mg 50 mg PO BID #180 tabs 06/15/23 tablet,extended release 24 hr cyclosporine modified 100 mg 100 mg PO BID #180 caps 08/02/23 capsule (Neoral) furosemide 20 mg tablet 20 mg PO DAILY PRN ankle edema #30 08/31/23 tabs cyclosporine modified 25 mg 50 mg (2 x 25 mg) PO BID #120 caps 10/16/23 capsule (Neoral) hydrocortisone 2.5 % topical cream 1 applic AK BID PRN hemorrhoids 11/09/23 with perineal applicator days #30 grams (Anusol-HC) hydrocortisone acetate 25 mg 25 mg AK DAILY PRN Other 30 days 11/09/23 rectal suppository #24 ea Results & Data (ED) Vital Signs Vital Signs - 24 hr 11/10/23 13:08 11/10/23 14:56 11/10/23 15:00 Temperature 36.7 C Temperature Source Temporal Artery Scan Pulse Rate 64 63 65 Pulse Rate from SpO2 Sensor 65 Respiratory Rate 20 16 Respiratory Effort / Characteristics Non-Labored Spontaneous Respiratory Depth Normal Blood Pressure 173/101 H 152/102 H Blood Pressure Mean 125 118 Pulse Oximetry 98 97 Oxygen Delivery Method Room Air Room Air Sepsis Recent Fever Within 48 Hours No Sepsis New/Unexplained Change in Mental Status No Sepsis Action Taken by Nursing No Action Required 11/10/23 15:21 Temperature Temperature Source Pulse Rate 69 Pulse Rate from SpO2 Sensor 70 Respiratory Rate 20 Respiratory Effort / Characteristics Respiratory Depth Blood Pressure 165/103 H Blood Pressure Mean 123 Pulse Oximetry 97 Oxygen Delivery Method Room Air Sepsis Recent Fever Within 48 Hours Sepsis New/Unexplained Change in Mental Status Sepsis Action Taken by Nursing Laboratory Data 11/10/23 13:17 11/10/23 13:17 Lab Results 11/10/23 11/10/23 11/10/23 Range/Units 13:17 13:19 14:35 WBC 11.10 H (4.8-10.8) K/ul RBC 3.46 L (4.70-6.10) M/uL Hgb 10.5 L (14.0-18.0) g/dl Hct 29.8 L (42.0-52.0) % MCV 86.1 (80.0-100.0) fL MCH 30.3 (25.0-34.0) pg MCHC 35.2 (32.0-36.0) g/dL RDW Std Deviation 38.7 (36.4-46.3) fL RDW Coeff of [place] 12.2 (11.5-14.5) % Plt Count 193 (130-400) K/uL MPV 11.1 (9.4-12.4) fL Immature Gran % (Auto) 0.3 % Neut % (Auto) 73.4 % Lymph % (Auto) 17.2 % [place] % (Auto) 7.8 % Eos % (Auto) 1.0 % Baso % (Auto) 0.3 % Neut # (Auto) 8.15 H (1.40-6.50) K/uL Lymph # (Auto) 1.91 (1.20-3.40) K/uL [place] # (Auto) 0.87 H (0.11-0.59) K/uL Eos # (Auto) 0.11 (0.00-0.50) K/uL Baso # (Auto) 0.03 (0.00-0.20) K/uL Immature Gran # (Auto) 0.03 (0.01-0.20) K/uL Sodium 134 L (136-145) mmol/L Potassium 4.4 (3.5-5.1) mmol/L Chloride 98 (98-107) mmol/L Carbon Dioxide 21 (21-32) mmol/L Anion Gap 15 H (3-11) BUN 140 H (6-23) mg/dl Creatinine 8.37 H* (0.6-1.4) mg/dl Est Cr Clr Drug Dosing 10.0 ml/min Est GFR ( Amer) 7.5 ml/min Est GFR (Non-Af Amer) 6.5 ml/min BUN/Creatinine Ratio 16.7 (10-20) Glucose 111 H (70-99(Fasting)) mg/dl Calcium 7.6 L (8.6-10.3) mg/dl Phosphorus 8.9 H (2.5-4.9) mg/dl Magnesium 2.0 (1.7-2.4) mg/dl Total Bilirubin 0.4 (0.2-1.0) mg/dl AST 51 H (13-39) U/L ALT 55 H (7-52) U/L Alkaline Phosphatase 43 (34-104) U/L Troponin I High Sens 13.3 (0-20) pg/ml Total Protein 6.8 (6.0-8.3) gm/dl Albumin 3.5 (3.4-5.0) gm/dl Globulin 3.3 (2.5-4.0) gm/dl Albumin/Globulin Ratio 1.1 (0.9-2) Lipase 302 H (11-82) U/L Procalcitonin 0.18 (0-0.5) ng/ml Urine Color Yellow Urine Appearance Clear (Clear) Urine pH 6.5 (4.5-7.5) Ur Specific [place] 1.014 (1.000-1.030) Urine Protein 3+ H (Negative) Urine Glucose (UA) Trace H (Negative) Urine Ketones Negative (Negative) Urine Blood 1+ H (Negative) Urine Nitrite Negative (Negative) Urine Bilirubin Negative (Negative) Urine Urobilinogen Negative (Negative) Ur Leukocyte Esterase Negative (Negative) Urine WBC (Auto) 0-5 (0-5) /hpf Urine RBC (Auto) 0-2 (0-2) /hpf U Hyaline Cast (Auto) 3-5 H (0-2) /lpf U Epithel Cells (Auto) 0-2 (0-2) /hpf Urine Bacteria (Auto) None Seen (None Seen) Adenovirus (PCR) Not Detected (NotDetected) B. pertussis DNA (PCR) Not Detected (NotDetected) B.parapertussis DNA PCR Not Detected (NotDetected) C. pneumoniae DNA (PCR) Not Detected (NotDetected) Coronavirus OC43 (PCR) Not Detected (NotDetected) Coronavirus HKU1 (PCR) Not Detected (NotDetected) Coronavirus 229E (PCR) Not Detected (NotDetected) SARS-CoV-2 (PCR) Not Detected (NotDetected) Coronavirus NL63 (PCR) Not Detected (NotDetected) Human Metapneumovir PCR Not Detected (NotDetected) Influenza Type A (PCR) Not Detected (NotDetected) Influenza Type B (PCR) Not Detected (NotDetected) M. pneumoniae (PCR) Not Detected (NotDetected) Parainfluenza 1 (PCR) Not Detected (NotDetected) Parainfluenza 2 (PCR) Not Detected (NotDetected) Parainfluenza 3 (PCR) Not Detected (NotDetected) Parainfluenza 4 (PCR) Not Detected (NotDetected) RSV (PCR) Not Detected (NotDetected) Entero/Rhino (PCR) Not Detected (NotDetected) Administered Medications Discontinued Medications Sodium Chloride (Nss) 1,000 mls @ 999 mls/hr IV .[id number] ONE Stop: 11/10/23 15:10 Last Admin: 11/10/23 14:41 Dose: 999 mls/hr Documented By: REHAN Imaging Data Radiologist's Impression: Renal Ultrasound 11/10/23 13:54 RENAL ULTRASOUND HISTORY: Acute kidney injury. COMPARISON: Renal ultrasound 08/23/2023. FINDINGS: Right kidney: 11.7 cm. Multiple cysts with the largest in the lower pole measuring 2.0 cm. No hydronephrosis. Normal cortical thickness. Mild increased cortical echogenicity. Left kidney: 12.0 cm. Multiple cysts with the largest in the lower pole measuring 2.6 cm. There is 9 mm echogenic focus within the left kidney again noted suggestive of an angiomyolipoma. No hydronephrosis. Normal cortical thickness. Mild increased cortical echogenicity is noted. Bladder: No bladder wall thickening. The bilateral ureteral jets were identified. The prostate gland is mildly enlarged. IMPRESSION: 1. No hydronephrosis. 2. Bilateral renal cysts again noted. There is also stable 9 mm echogenic left renal lesion suggestive of an angiomyolipoma. 3. Mild increased cortical echogenicity within the kidneys suggestive of medical renal disease. ACT 112: Negative or not required by law. Electronically signed by: Vladimir Davies M.D. 11/10/2023 2:55 PM Discharge Plan Visit Data Chief Complaint: Abnormal Labs/Diagnostic Testing Stated Complaint: ABN LABS, REF BY DOC ED Provider: Gayla Yanes Discharge Problem: Acute renal failure Forms Stand Alone Forms: [facility]ribe Prescriptions Prescriptions: No Action metoprolol succinate 50 mg tablet extended release 24 hr 50 mg PO BID Qty: 180 3RF Rx Instructions: 1 tablet twice per day hydrocortisone [Anusol-HC] 2.5 % cream with perineal applicator 1 applic AK BID PRN (Reason: hemorrhoids) 30 Days Qty: 30 2RF hydrocortisone acetate 25 mg suppository 25 mg AK DAILY PRN (Reason: Other) 30 Days Qty: 24 2RF Hold Instructions: Resume on 09/01/23. Hold while acute renal failure healing. escitalopram oxalate 5 mg tablet 10 mg PO QAM cyclosporine modified [Neoral] 100 mg capsule 100 mg PO BID Qty: 180 3RF cyclosporine modified [Neoral] 25 mg capsule 50 mg PO BID Qty: 120 5RF Rx Instructions: Take 150 mg twice daily (one 100 + two 25 mg twice daily) furosemide 20 mg tablet 20 mg PO DAILY PRN (Reason: ankle edema) Qty: 30 5RF Hold Instructions: Resume on 09/01/23. Hold while acute renal failure still healing. Rx Instructions: 20 mg orally as needed for ankle edema; warfarin 5 mg tablet 7.5 mg PO UD Protocol: Dose Management Condition: Monday (Week One) Dose/Route: 5 mg Instruction: 1 x 5 mg tablet Condition: Monday Dose/Route: 7.5 mg Instruction: 1.5 x 5 mg tablets Condition: Monday Dose/Route: 0 mg Instruction: 0 tablets Condition: Monday Dose/Route: 5 mg Instruction: 1 x 5 mg tablet Condition: Dose/Route: 5 mg Instruction: 1 x 5 mg tablet Condition: Monday Dose/Route: 7.5 mg Instruction: 1.5 x 5 mg tablets Condition: Monday Dose/Route: 5 mg Instruction: 1 x 5 mg tablet Condition: Monday (Week Two) Dose/Route: 5 mg Instruction: 1 x 5 mg tablet Condition: Monday Dose/Route: 7.5 mg Instruction: 1.5 x 5 mg tablets Condition: Monday Dose/Route: 5 mg Instruction: 1 x 5 mg tablet Condition: Monday Dose/Route: 5 mg Instruction: 1 x 5 mg tablet Condition: Dose/Route: 5 mg Instruction: 1 x 5 mg tablet Condition: Monday Dose/Route: 7.5 mg Instruction: 1.5 x 5 mg tablets Condition: Monday Dose/Route: 5 mg Instruction: 1 x 5 mg tablet Protocol Text: Adjustment Start Date: Monday11/07/23 INR Value: 4.1 INR Date: 11/07/23 Recheck Date: 11/14/23 Rx Instructions: 5 mg- Monday, and Monday, Monday, Monday ; 7.5 Monday, Monday allopurinol 300 mg tablet 300 mg PO QAM Hold Instructions: GAYLA Rx Instructions: TAKE 1 TABLET ORALLY DAILY IN THE MORNING cholecalciferol (vitamin D3) 50 mcg (2,000 unit) capsule 50 mcg PO PM rosuvastatin [Crestor] 40 mg tablet 40 mg PO PM Referrals Referrals: Tasneem Russo MD [Primary Care Provider] -
[2023-11-10] MEDS: SODIUM CHLORIDE 0.9% 1,000 ML IV ONE (14:41)
--- NOTE | 2023-11-10 14:57 | Ultrasound Report ---
RENAL ULTRASOUND HISTORY: Acute kidney injury. COMPARISON: Renal ultrasound 08/23/2023. FINDINGS: Right kidney: 11.7 cm. Multiple cysts with the largest in the lower pole measuring 2.0 cm. No hydrone phrosis. Normal cortical thickness. Mild increased cortical echogenicity. Left kidney: 12.0 cm. Multiple cysts with the largest in the lower pole measuring 2.6 cm. There is 9 mm echogenic focus within the left kidney again noted suggestive of an angiomyolipoma. No hydronephro sis. Normal cortical thickness. Mild increased cortical echogenicity is noted. Bladder: No bladder wall thickening. The bilateral ureteral jets were identified. The prostate gland is mildly enlarged. IMPRESSION: 1. No hydronephrosis. 2. Bilateral renal cysts again noted. There is also stable 9 mm echogenic left renal lesion suggestiv e of an angiomyolipoma. 3. Mild increased cortical echogenicity within the kidneys suggestive of medical renal disease. ACT 112: Negative or not required by law. Electronically signed by: Vladimir Davies M.D. 11/10/2023 2:55 PM
--- NOTE | 2023-11-10 15:21 | History & Physical Report ---
Date of Service November 10, 2023 Assessment & Plan (1) Acute renal failure (ARF): Plan: Patient presented at [facility] on 11/09 Non-anuric BUN 140, creatinine 8.37 (baseline 2.0), and EGFR 6.5 Hx of ARF on 08/22/2023 requiring admission; thought secondary to CMG (see #2) UA with 3+ protein Avoid nephrotoxic agents Unclear etiology at this time, but may be recurrence of primary CMG; ?complication of warfarin therapy Nephrology consulted in the event dialysis is required Phospholipase A2 antibody ordered, pending Trend BMP, mag, phosphorus Continue Neoral (cyclosporine) 150mg BID Cyclosporine level ordered, pending A.m. CBC, CMP, Mag, PT/INR (2) Chronic membranous glomerulonephritis: Plan: Dx in 1998; Biopsy-proven Workup for Goodpasture's disease/vasculitis in [place] at [facility] [place] Negative immunological workup, negative ANCA, negative anti-GBM antibody (3) Illness: Plan: Cold-like symptoms and fever on Monday/Friday 11/03 prior to admission Patient also developed aching lower back pain at this time BioFire ordered, pending Unclear if this is tied to renal failure (4) shelter (current) use of anticoagulants: Plan: History of vena cava thrombus Continue warfarin Daily PT/INR levels (5) HTN (hypertension): Plan: Patient was hypertensive around 152/102 on arrival Informed by nursing staff of elevated BP at 213/112 Transferred to PCU for IV antihypertensives Continue home metoprolol as scheduled (6) Proteinuria: Plan: Urine protein/creatinine ordered, pending (7) Gout: Plan: Hold allopurinol for now (8) Chewing tobacco dependence in remission: (9) Pre-diabetes: (10) Hyperphosphatemia associated with renal failure: Plan Disposition: Admit to PCU telemetry Full code Renal dialysis diet VTE PPx: SCDs; will hold chemical DVT PX in the setting of acute renal failure History of Present Illness Chief Complaint: Abnormal renal function labs on outpatient testing Primary Care Provider: Tasneem Russo MD Duane is a 57-year-old male with PMH of GERD, dyslipidemia, mitral regurgitation, depression, renal vein thrombosis, and long-term use of anticoagulations (warfarin). He presented on 11/09 for elevated creatinine levels on outpatient labs. Patient was set to see nephrology next month. He was also admitted to [facility] in August 2023 for a similar elevation in creatinine. Patient reports that last Monday/Monday he was sick with cold-like symptoms and had fevers at home. Did not take his temperature at that time. He reports that he took his regular morning medications; only recent changes were that his dosage for warfarin was changed on Monday 11/06, and his near all was increased to 150 mg p.o. twice daily at the beginning of October; was previously on 100 mg p.o. twice daily. Patient reports he is still producing urine, albeit in smaller amounts and more frequently. No history of kidney stones. No history of prostate issues or obstruction. He reports that he does stay well-hydrated at home. He did develop a new, aching back pain during his recent illness last Monday/Friday 11/03. He thought it might of been from sleeping in his chair, and not moving around much. He was having difficulty with sleep due to the back pain, and reports that he took Tylenol, but no nephrotoxic agents such as NSAIDs. He avoids ACEs/ARB's. No radiation of lower back pain down the legs. Patient denies smoking, or alcohol use. The reports that he did chew tobacco, but quit 1 year ago. Additional symptoms includes blood in his stool, which he attributes to his hemorrhoids; last colonoscopy was in November 2022. Patient is hypertensive at 152/102 at time of admission; vitals otherwise stable. ED course: NSS 1000 mL IV ROS: Patient endorses low grade fevers, STRANGE, nausea, loss of appetite, and intermittent lower back pain, frothy urine, and blood in the stool (which patient attributes to hemorrhoids). Patient denies chills, night-sweats, dizziness, lighteadedness, chest pain, chest palpitations, SOB, cough, abdominal pain, vomiting, diarrhea, blood in the urine, dark urine, dysuria, burning with urine, saddle anesthesia, or numbness/tingling in the arms or legs. Allergies Allergy/AdvReac Type Severity Reaction Status Date / Time NSAIDS (Non-Steroidal Allergy Unknown Unknown Verified 09/11/23 15:36 Anti-Inflamma Home Medications Medication Instructions Recorded Confirmed Type escitalopram oxalate 5 mg tablet 10 mg PO QAM 01/02/23 11/10/23 History metoprolol succinate 50 mg 50 mg PO BID #180 tabs 06/15/23 11/10/23 Rx tablet,extended release 24 hr cyclosporine modified 100 mg 100 mg PO BID #180 caps 08/02/23 11/10/23 Rx capsule (Neoral) allopurinol 300 mg tablet 300 mg PO QAM 08/22/23 11/10/23 History cholecalciferol (vitamin D3) 50 50 mcg PO PM 08/22/23 11/10/23 History mcg (2,000 unit) capsule warfarin 5 mg tablet 7.5 mg PO UD 08/22/23 11/10/23 History furosemide 20 mg tablet 20 mg PO DAILY PRN ankle edema #30 08/31/23 11/10/23 Rx tabs cyclosporine modified 25 mg 50 mg (2 x 25 mg) PO BID #120 caps 10/16/23 11/10/23 Rx capsule (Neoral) hydrocortisone 2.5 % topical cream 1 applic DC BID PRN hemorrhoids 30 11/09/23 11/10/23 Rx with perineal applicator days #30 grams (Anusol-HC) hydrocortisone acetate 25 mg 25 mg DC DAILY PRN Other 30 days 11/09/23 11/10/23 Rx rectal suppository #24 ea rosuvastatin 40 mg tablet (Crestor) 40 mg PO PM 11/10/23 11/10/23 History Past Med/Surg History Problem List Hyperphosphatemia associated with renal failure Acute renal failure (Acute) Illness Proteinuria HTN (hypertension) Pre-diabetes Gout Chronic membranous glomerulonephritis Acute renal failure (ARF) Chewing tobacco dependence in remission 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 on 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 Depression (Chronic) Renal vein thrombosis Systolic murmur at cardiac apex Mitral regurgitation Pulmonary nodules (Acute) 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 A therapy Abnormal CT scan of lung Dyslipidemia Vitamin D deficiency Gastroesophageal reflux disease Drug-induced anemia Hemorrhoids Medical History Chronic anemia Atrial fibrillation hx of Apr 2020 during hospitalization--on warfarin/metoprolol--per PCP note 06/28/21 HR noted to be regular rhythm Multinodular thyroid Hx of gout Anemia Chronic membranous glomerulonephritis Cushings syndrome Depression Hypercholesterolemia Multinodular thyroid Nephrotic syndrome Renal/ureteral disease 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 Surgical History Status post biopsy of kidney History of colonoscopy History of wisdom tooth extraction S/P thyroid biopsy History of bronchoscopy (~04/2020) Family History Other Hypertension No family history of adverse response to anesthesia Denies family history of Ovarian cancer Prostate cancer Myocardial infarction Breast cancer Colorectal cancer Social History Smoking Status: Never smoker Second Hand Exposure: No; Do You Dip or Chew Tobacco: No; Hx Alcohol Use: No Hx Substance Use: No Preferred Language: [place]ian Communication Ability: Effective Visual Impairment: Limited Hearing Ability: Normal Data Coder 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 How many Children do You have: 2 Feels Safe at Home: Yes Diet: low salt caffeine: Yes (1 soda daily) Dental Care, Regularly: Yes Physical Activity Frequency: Does not Exercise Seatbelt Use: always Do you think of yourself as: straight/heterosexual Gender Identity: Male Assistive Devices: None Review of Systems Review of Systems: See HPI above Physical Exam Physical Exam: General: no acute distress; pleasant affect; non-toxic appearing; well- nourished; cooperative HEENT: normocephalic, atraumatic; no scleral icterus; PERRLA; vision and hearing grossly intact Neck: supple; no lymphadenopathy; trachea midline Skin: warm, dry without signs of tenting; no cyanosis; no bruises or lesions noted on the abdomen, flanks, or back CV: chest wall NTP; RRR; S1/S2 normal; no murmurs/rubs/gallops; pulses intact and symmetric at radial, DP, and PT Lungs: no acute respiratory distress; symmetrical chest wall expansion; clear breath sounds across all lung mitchell w/o adventitious sounds; no wheezing ABD: Soft, NTP; superficial rash noted on the left upper quadrant of the abdomen; BS present; no rebound/guarding; no distention; negative CVA tenderness bilaterally MSK: no tics or fasciculations; no edema noted in the LEs b/l, nonerythematous Neuro: A&Ox3; normal mood and affect; fluent speech; no focal deficits; sensation grossly intact in the LEs b/l Results & Data Results & Data Vital Signs (Past 12 Hours) Vital Signs Temp Pulse Resp BP Pulse Ox O2 Del Method 11/10/23 15:00 65 16 152/102 H 97 Room Air 11/10/23 14:56 63 11/10/23 13:08 36.7 C 64 20 173/101 H 98 Room Air Laboratory Results Abnormal lab results 11/10/23 11/10/23 Range/Units 13:17 13:19 WBC 11.10 H (4.8-10.8) K/ul RBC 3.46 L (4.70-6.10) M/uL Hgb 10.5 L (14.0-18.0) g/dl Hct 29.8 L (42.0-52.0) % Neut # (Auto) 8.15 H (1.40-6.50) K/uL [place] # (Auto) 0.87 H (0.11-0.59) K/uL Sodium 134 L (136-145) mmol/L Anion Gap 15 H (3-11) BUN 140 H (6-23) mg/dl Creatinine 8.37 H* (0.6-1.4) mg/dl Glucose 111 H (70-99(Fasting)) mg/dl Calcium 7.6 L (8.6-10.3) mg/dl Phosphorus 8.9 H (2.5-4.9) mg/dl AST 51 H (13-39) U/L ALT 55 H (7-52) U/L Lipase 302 H (11-82) U/L Urine Protein 3+ H (Negative) Urine Glucose (UA) Trace H (Negative) Urine Blood 1+ H (Negative) U Hyaline Cast (Auto) 3-5 H (0-2) /lpf Diagnostic Findings Renal Ultrasound 11/10/23 13:54 RENAL ULTRASOUND HISTORY: Acute kidney injury. COMPARISON: Renal ultrasound 08/23/2023. FINDINGS: Right kidney: 11.7 cm. Multiple cysts with the largest in the lower pole measuring 2.0 cm. No hydronephrosis. Normal cortical thickness. Mild increased cortical echogenicity. Left kidney: 12.0 cm. Multiple cysts with the largest in the lower pole measuring 2.6 cm. There is 9 mm echogenic focus within the left kidney again noted suggestive of an angiomyolipoma. No hydronephrosis. Normal cortical thickness. Mild increased cortical echogenicity is noted. Bladder: No bladder wall thickening. The bilateral ureteral jets were identified. The prostate gland is mildly enlarged. IMPRESSION: 1. No hydronephrosis. 2. Bilateral renal cysts again noted. There is also stable 9 mm echogenic left renal lesion suggestive of an angiomyolipoma. 3. Mild increased cortical echogenicity within the kidneys suggestive of medical renal disease. ACT 112: Negative or not required by law. Electronically signed by: Vladimir Davies M.D. 11/10/2023 2:55 PM ECG Additional Comments: ECG revealed NSR at 67 bpm; QTc 475 Code Status & VTE Plan Code Status Full code VTE Prophylaxis Plan VTE Prophylaxis will be ordered: Yes Supervising Physician Co-Signing Physician Notes Patient seen and examined, chart reviewed, case discussed with Vladimir Rich and I agree with the assessment and plan as above except as otherwise noted above. Labs and images reviewed 57-year-old male with history glomerulonephritis who presents for rapid rise in creatinine. He is nonoliguric, did have some cold-like symptoms 7 days ago. He is on warfarin for history of renal vein thrombosis. Longstanding history of pulmonary low nephritis which has been cyclosporine therapy. level sent. Nephrology following. Repeat biopsy not recommended at this time. Neprhology evaluating for rituxan/cyclophosphamide based on progression, may need progres harshal to dialysis if not improving. Appreciate recommendations and care. Annual ultrasound showed bilateral renal cysts, increased cortical echogenicity consistent with medical renal disease. No hydro or obstruction is seen. Is not hypoalbuminemic, does have gross protein in his urine. Seenat bedside. CTAB. No chest pain. No headache. Nondistressed. Relapsing membranous glomerulonephritis Cyclosporine continued, level pending Started on methylprednisolone 500 mg daily x 3 days, then will transition to prednisone 60 mg daily acute non-anuric renal failure and nephrotic range proteinuria. Creatinine rapid rise to 8.3. 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
[2023-11-10 16:08] LABS: Adenovirus PCR Not Detected (NotDetected); Bordetella parapertussis PCR Not Detected (NotDetected); Bordetella pertussis PCR Not Detected (NotDetected); Chlamydia pneumoniae PCR Not Detected (NotDetected); Coronavirus 229E PCR Not Detected (NotDetected); Coronavirus CoV-2 (COVID19)PCR Not Detected (NotDetected); Coronavirus HKU1 PCR Not Detected (NotDetected); Coronavirus NL63 PCR Not Detected (NotDetected); Coronavirus OC43PCR Not Detected (NotDetected); Human Metapneumovirus PCR Not Detected (NotDetected); Influenza A PCR Not Detected (NotDetected); Influenza B PCR Not Detected (NotDetected); Mycoplasma pneumoniae PCR Not Detected (NotDetected); Parainfluenza Virus 1 PCR Not Detected (NotDetected); Parainfluenza Virus 2 PCR Not Detected (NotDetected); Parainfluenza Virus 3 PCR Not Detected (NotDetected); Parainfluenza Virus 4 PCR Not Detected (NotDetected); Respiratory Syncytial VirusPCR Not Detected (NotDetected); Rhinovirus/Enterovirus PCR Not Detected (NotDetected)
[2023-11-10 16:29] LABS: INR 2.3 (0.9-1.1); Prothrombin Time 23.4 Seconds (9.0-12.0)
--- NOTE | 2023-11-10 16:48 | Nephrology Consultation ---
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 Antibody levels were later undetectable 09/03 when patient was restarted on neoral therapy. * No documented history of underlying malignancy * Baseline creatinine had been 1.62.1 (2) Acute renal failure (ARF): * 1 L 0.9 NS provided while in EMD * Will order urinalysis with microscopy, UPCR, urine sodium and creatinine * Await cyclosporine level * Will order phospholipase A2 receptor antibody level * Renal ultrasound was just completed. No hydronephrosis * Patient is a poor candidate for repeat biopsy due to bilateral renal cysts and need for chronic anticoagulation therapy. * Plan of care discussed with Mr. Loja and his in the emergency department today. 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 They are agreeable to dialysis if it is needed. If renal function improves with conservative measures may need to consider alternative immunosuppressive therapy such as rituximab or cyclophosphamide. (3) Renal vein thrombosis: * No flank pain or hematuria * Remains on warfarin therapy. INR is therapeutic History of Present Illness Reason for Consultation: GAYLA/CKD History of Present Illness Mr. Loja is a 57-year-old white male who is seen at the request of the [facility] hospitalist service for evaluation of GAYLA/CKD. Information for the HPI is obtained from direct patient interview and review of the EMR. HPI is summarized as follows: Mr. Loja suffers from membranous glomerulonephritis. This was diagnosed in 1998 via [place] kidney biopsy. His clinical course was complicated by renal vein thrombosis. He has been managed with knee oral and warfarin therapy. His baseline serum creatinine has stabilized at 1.3 and UPCR haddad had improved to 0.3. Because patient had completed > 2 years immunosuppressive therapy in 12/31 attempts were made to wean 2 off. Unfortunately by 06/01 patient developed progressive proteinuria. ISAIAS inhibitor therapy was started and a loop diuretic was added due to mild hyperkalemia. By 09/03 Mr. Loja developed GAYLA/CKD. Creatinine peaked at 4.64. ISAIAS inhibitor and loop diuretic were held. Gentle hydration was provided. Neoral 100 mg twice daily was restarted. Creatinine improved to 2.2 and patient was discharged from the hospital. Of note patient's phospholipase A2 receptor antibodies had been positive at 48 and were undetectable following discharge from the hospital. In 11/03 Mr. Loja was seen in the nephrology office. Creatinine was stable at 2.1 however patient remained proteinuric and serum cyclosporine levels were subtherapeutic. Neoral dose was increased to 150 mg BID. Goal was to obtain therapeutic immunosuppression and monitor for improvement in proteinuria. Mr. Loja completed follow-up blood work today. Creatinine has now markedly risen to 8.0. Mr. Loja was contacted by telephone and advised to present to the emergency department for ongoing medical evaluation. At this time Mr. Loja reports a low-grade fever. He notes that at home other family members have recently contracted COVID. He has been tested but results are pending. Mr. Loja denies the regular use of NSAIDs or herbal supplements. He has remained off lisinopril/losartan and furosemide since his 09/03 hospitalization. He currently denies angina, dyspnea, flank pain, gross hematuria, difficulty voiding or uremic symptoms. His primary complaint is fatigue. Mr. Loja reports that he has remained adherent to the prescribed immunosuppressive regimen. Allergies Allergy/AdvReac Type Severity Reaction Status Date / Time NSAIDS (Non-Steroidal Allergy Unknown Unknown Verified 09/11/23 15:36 Anti-Inflamma Home Medications Medication Instructions Recorded Confirmed Type escitalopram oxalate 5 mg tablet 10 mg PO QAM 01/02/23 11/10/23 History metoprolol succinate 50 mg 50 mg PO BID #180 tabs 06/15/23 11/10/23 Rx tablet,extended release 24 hr cyclosporine modified 100 mg 100 mg PO BID #180 caps 08/02/23 11/10/23 Rx capsule (Neoral) allopurinol 300 mg tablet 300 mg PO QAM 08/22/23 11/10/23 History cholecalciferol (vitamin D3) 50 50 mcg PO PM 08/22/23 11/10/23 History mcg (2,000 unit) capsule warfarin 5 mg tablet 7.5 mg PO UD 08/22/23 11/10/23 History furosemide 20 mg tablet 20 mg PO DAILY PRN ankle edema #30 08/31/23 11/10/23 Rx tabs cyclosporine modified 25 mg 50 mg (2 x 25 mg) PO BID #120 caps 10/16/23 11/10/23 Rx capsule (Neoral) hydrocortisone 2.5 % topical cream 1 applic PA BID PRN hemorrhoids 11/09/23 11/10/23 Rx with perineal applicator days #30 grams (Anusol-HC) hydrocortisone acetate 25 mg 25 mg PA DAILY PRN Other 30 days 11/09/23 11/10/23 Rx rectal suppository #24 ea rosuvastatin 40 mg tablet (Crestor) 40 mg PO PM 11/10/23 11/10/23 History Patient History Medical History Chronic anemia Atrial fibrillation hx of Apr 2020 during hospitalization--on warfarin/metoprolol--per PCP note 06/28/21 HR noted to be regular rhythm Multinodular thyroid Hx of gout Anemia Chronic membranous glomerulonephritis Cushings syndrome Depression Hypercholesterolemia Multinodular thyroid Nephrotic syndrome Renal/ureteral disease 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 Surgical History Status post biopsy of kidney History of colonoscopy History of wisdom tooth extraction S/P thyroid biopsy History of bronchoscopy (~04/2020) Family History Other Hypertension No family history of adverse response to anesthesia Denies family history of Ovarian cancer Prostate cancer Myocardial infarction Breast cancer Colorectal cancer Social History Smoking Status: Never smoker Second Hand Exposure: No; Do You Dip or Chew Tobacco: No; Hx Alcohol Use: No Hx Substance Use: No Preferred Language: French Communication Ability: Effective Visual Impairment: Limited Hearing Ability: Normal Cambering Machine Operator Required: No Beliefs That Will Affect Care: None marital status: Current Living Situation: Spouse current occupational status: employed 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 How many Children do You have: 2 Feels Safe at Home: Yes Diet: low salt caffeine: Yes (1 soda daily) Dental Care, Regularly: Yes Physical Activity Frequency: Does not Exercise Seatbelt Use: always Do you think of yourself as: straight/heterosexual Gender Identity: Male Assistive Devices: None Review of Systems Constitutional: + fever Eyes: no problem reported Ear, Nose, Mouth, Throat: no problem reported Respiratory: no cough and no dyspnea Cardiovascular: no chest pain and no edema Gastrointestinal: no abdominal pain, no nausea, no vomiting and no diarrhea/loose stools Genitourinary: no dysuria, no hematuria or no flank pain Integumentary: no rash Neurologic: no confusion Physical Exam Constitutional: not in distress Eyes: PERRL, conjunctivae normal, anicteric sclerae ENMT: external ear and nose normal, oropharynx normal Neck: trachea midline, no thyromegaly Respiratory: normal respiratory effort, lungs clear to auscultation Cardiovascular: RRR, no murmur, no edema Gastrointestinal (Abdomen): normal bowel sounds, soft, nontender, no hepatosplenomegaly Musculoskeletal: Extremities: no cyanosis and no clubbing Skin: no rashes, warm and dry Neurologic: Speech / Cognition: normal speech and normal cognition Psychiatric: Affect: euthymic affect Results & Data Vital Signs (Past 12 Hours) Vital Signs Temp Pulse Resp BP Pulse Ox O2 Del Method 11/10/23 15:21 69 20 165/103 H 97 Room Air 11/10/23 15:00 65 16 152/102 H 97 Room Air 11/10/23 14:56 63 11/10/23 13:08 36.7 C 64 20 173/101 H 98 Room Air Laboratory Results Laboratory Results WBC 11.10 K/ul (4.8-10.8) H 11/10/23 13:17 RBC 3.46 M/uL (4.70-6.10) L 11/10/23 13:17 Hgb 10.5 g/dl (14.0-18.0) L 11/10/23 13:17 Hct 29.8 % (42.0-52.0) L 11/10/23 13:17 MCV 86.1 fL (80.0-100.0) 11/10/23 13:17 MCH 30.3 pg (25.0-34.0) 11/10/23 13:17 MCHC 35.2 g/dL (32.0-36.0) 11/10/23 13:17 RDW Std Deviation 38.7 fL (36.4-46.3) 11/10/23 13:17 RDW Coeff of Elkin 12.2 % (11.5-14.5) 11/10/23 13:17 Plt Count 193 K/uL (130-400) 11/10/23 13:17 MPV 11.1 fL (9.4-12.4) 11/10/23 13:17 Immature Gran % (Auto) 0.3 % 11/10/23 13:17 Neut % (Auto) 73.4 % 11/10/23 13:17 Lymph % (Auto) 17.2 % 11/10/23 13:17 [place] % (Auto) 7.8 % 11/10/23 13:17 Eos % (Auto) 1.0 % 11/10/23 13:17 Baso % (Auto) 0.3 % 11/10/23 13:17 Neut # (Auto) 8.15 K/uL (1.40-6.50) H 11/10/23 13:17 Lymph # (Auto) 1.91 K/uL (1.20-3.40) 11/10/23 13:17 [place] # (Auto) 0.87 K/uL (0.11-0.59) H 11/10/23 13:17 Eos # (Auto) 0.11 K/uL (0.00-0.50) 11/10/23 13:17 Baso # (Auto) 0.03 K/uL (0.00-0.20) 11/10/23 13:17 Immature Gran # (Auto) 0.03 K/uL (0.01-0.20) 11/10/23 13:17 PT 23.4 Seconds (9.0-12.0) H 11/10/23 15:35 INR 2.3 (0.9-1.1) H 11/10/23 15:35 Sodium 134 mmol/L (136-145) L 11/10/23 13:17 Potassium 4.4 mmol/L (3.5-5.1) 11/10/23 13:17 Chloride 98 mmol/L (98-107) 11/10/23 13:17 Carbon Dioxide 21 mmol/L (21-32) 11/10/23 13:17 Anion Gap 15 (3-11) H 11/10/23 13:17 BUN 140 mg/dl (6-23) H 11/10/23 13:17 Creatinine 8.37 mg/dl (0.6-1.4) H* 11/10/23 13:17 Est Cr Clr Drug Dosing 10.0 ml/min 11/10/23 13:17 Est GFR ( Amer) 7.5 ml/min 11/10/23 13:17 Est GFR (Non-Af Amer) 6.5 ml/min 11/10/23 13:17 BUN/Creatinine Ratio 16.7 (10-20) 11/10/23 13:17 Glucose 111 mg/dl (70-99(Fasting)) H 11/10/23 13:17 Calcium 7.6 mg/dl (8.6-10.3) L 11/10/23 13:17 Phosphorus 8.9 mg/dl (2.5-4.9) H 11/10/23 13:17 Magnesium 2.0 mg/dl (1.7-2.4) 11/10/23 13:17 Total Bilirubin 0.4 mg/dl (0.2-1.0) 11/10/23 13:17 AST 51 U/L (13-39) H 11/10/23 13:17 ALT 55 U/L (7-52) H 11/10/23 13:17 Alkaline Phosphatase 43 U/L (34-104) 11/10/23 13:17 Troponin I High Sens 13.3 pg/ml (0-20) 11/10/23 13:17 Total Protein 6.8 gm/dl (6.0-8.3) 11/10/23 13:17 Albumin 3.5 gm/dl (3.4-5.0) 11/10/23 13:17 Globulin 3.3 gm/dl (2.5-4.0) 11/10/23 13:17 Albumin/Globulin Ratio 1.1 (0.9-2) 11/10/23 13:17 Lipase 302 U/L (11-82) H 11/10/23 13:17 Procalcitonin 0.18 ng/ml (0-0.5) 11/10/23 13:17 Urine Color Yellow 11/10/23 13:19 Urine Appearance Clear (Clear) 11/10/23 13:19 Urine pH 6.5 (4.5-7.5) 11/10/23 13:19 Ur Specific [place] 1.014 (1.000-1.030) 11/10/23 13:19 Urine Protein 3+ (Negative) H 11/10/23 13:19 Urine Glucose (UA) Trace (Negative) H 11/10/23 13:19 Urine Ketones Negative (Negative) 11/10/23 13:19 Urine Blood 1+ (Negative) H 11/10/23 13:19 Urine Nitrite Negative (Negative) 11/10/23 13:19 Urine Bilirubin Negative (Negative) 11/10/23 13:19 Urine Urobilinogen Negative (Negative) 11/10/23 13:19 Ur Leukocyte Esterase Negative (Negative) 11/10/23 13:19 Urine WBC (Auto) 0-5 /hpf (0-5) 11/10/23 13:19 Urine RBC (Auto) 0-2 /hpf (0-2) 11/10/23 13:19 U Hyaline Cast (Auto) 3-5 /lpf (0-2) H 11/10/23 13:19 U Epithel Cells (Auto) 0-2 /hpf (0-2) 11/10/23 13:19 Urine Bacteria (Auto) None Seen (None Seen) 11/10/23 13:19 Adenovirus (PCR) Not Detected (NotDetected) 11/10/23 14:35 B. pertussis DNA (PCR) Not Detected (NotDetected) 11/10/23 14:35 B.parapertussis DNA PCR Not Detected (NotDetected) 11/10/23 14:35 C. pneumoniae DNA (PCR) Not Detected (NotDetected) 11/10/23 14:35 Coronavirus OC43 (PCR) Not Detected (NotDetected) 11/10/23 14:35 Coronavirus HKU1 (PCR) Not Detected (NotDetected) 11/10/23 14:35 Coronavirus 229E (PCR) Not Detected (NotDetected) 11/10/23 14:35 SARS-CoV-2 (PCR) Not Detected (NotDetected) 11/10/23 14:35 Coronavirus NL63 (PCR) Not Detected (NotDetected) 11/10/23 14:35 Human Metapneumovir PCR Not Detected (NotDetected) 11/10/23 14:35 Influenza Type A (PCR) Not Detected (NotDetected) 11/10/23 14:35 Influenza Type B (PCR) Not Detected (NotDetected) 11/10/23 14:35 M. pneumoniae (PCR) Not Detected (NotDetected) 11/10/23 14:35 Parainfluenza 1 (PCR) Not Detected (NotDetected) 11/10/23 14:35 Parainfluenza 2 (PCR) Not Detected (NotDetected) 11/10/23 14:35 Parainfluenza 3 (PCR) Not Detected (NotDetected) 11/10/23 14:35 Parainfluenza 4 (PCR) Not Detected (NotDetected) 11/10/23 14:35 RSV (PCR) Not Detected (NotDetected) 11/10/23 14:35 Entero/Rhino (PCR) Not Detected (NotDetected) 11/10/23 14:35 Impressions Renal Ultrasound 11/10/23 13:54 RENAL ULTRASOUND HISTORY: Acute kidney injury. COMPARISON: Renal ultrasound 08/23/2023. FINDINGS: Right kidney: 11.7 cm. Multiple cysts with the largest in the lower pole measuring 2.0 cm. No hydronephrosis. Normal cortical thickness. Mild increased cortical echogenicity. Left kidney: 12.0 cm. Multiple cysts with the largest in the lower pole measuring 2.6 cm. There is 9 mm echogenic focus within the left kidney again noted suggestive of an angiomyolipoma. No hydronephrosis. Normal cortical thickness. Mild increased cortical echogenicity is noted. Bladder: No bladder wall thickening. The bilateral ureteral jets were identified. The prostate gland is mildly enlarged. IMPRESSION: 1. No hydronephrosis. 2. Bilateral renal cysts again noted. There is also stable 9 mm echogenic left renal lesion suggestive of an angiomyolipoma. 3. Mild increased cortical echogenicity within the kidneys suggestive of medical renal disease. ACT 112: Negative or not required by law. Electronically signed by: Vladimir Davies M.D. 11/10/2023 2:55 PM PG Care Time/CCT Total # of Minutes Spent Total Time Spent with Patient: Total time spent is greater than 50% in coordination of care (as documented) at patient's floor/unit and/or counseling patient: Coding Level of Care Code 46720 OFFICE CONSULT LVL 5/55M Diagnoses Chronic membranous glomerulonephritis N03.2 Acute renal failure (ARF) N17.9 Renal vein thrombosis I82.3
[2023-11-10 17:34] LABS: Creatinine Urine Random 67.4 mg/dl; Protein Creatinine Ratio Urine 6.9 (0-0.2); Total Protein Urine Random 468.2 mg/dl (0-11.9)
[2023-11-10] MEDS ORDERED: WARFARIN SOD 7.5 MG TAB PO SCH (18:26)
[2023-11-10] MEDS ORDERED: LABETALOL HCL IV 5 MG/ML 20ML IV STA (18:36)
[2023-11-10] MEDS ORDERED: hydrALAZINE HCL 20 MG/ML VIAL IV PRN (19:00)
[2023-11-10] MEDS ORDERED: methylPREDNISolone 125 MG/2 ML VIAL IV SCH (19:15)
[2023-11-10] MEDS: hydrALAZINE HCL 20 MG/ML VIAL IV ONE (19:27)
[2023-11-10] MEDS: methylPREDNISolone 500 MG in DEXTROSE 5% 100 ML IV SCH (19:57)
[2023-11-10] MEDS: METOPROLOL SUCC 50MG EXT REL TAB PO SCH (20:04)
[2023-11-10] MEDS: WARFARIN SOD 7.5 MG TAB PO SCH (20:04)
[2023-11-10 21:08] LABS: BUN Creatinine Ratio 17.5 (10-20); Calcium 7.2 mg/dl (8.6-10.3); Creatinine Clr Calc Pharmacy 10.6 ml/min; Est GFR (African American) 8.1 ml/min; Magnesium 1.8 mg/dl (1.7-2.4); Phosphorus 7.6 mg/dl (2.5-4.9); Potassium 3.9 mmol/L (3.5-5.1)
--- NOTE | 2023-11-10 22:05 | Electrocardiogram Report ---
Test Reason : Blood Pressure : */* mmHG Vent. Rate : 67 BPM Atrial Rate : 67 BPM P-R Int : 168 ms QRS Dur : 76 ms QT Int : 450 ms P-R-T Axes : 69 13 14 degrees QTcB Int : 475 ms Normal sinus rhythm Minimal voltage criteria for LVH, may be normal variant Borderline ECG When compared with ECG of 22-Aug-2023 14:12, QT has lengthened Confirmed by Amrik Snyder ([id number]) on 11/10/2023 10:04:57 PM Referred By: REFERRED SELF Confirmed By: Amrik Snyder
[2023-11-10] MEDS: cycloSPORINE 25 MG CAP PO SCH (22:13)
[2023-11-10] MEDS: cycloSPORINE 100 MG CAP PO SCH (22:15)
[2023-11-11] MEDS: ACETAMINOPHEN 325 MG TAB PO PRN (03:56)
[2023-11-11 06:02] LABS: Hematocrit (blood only) 29.8 % (42.0-52.0); Hemoglobin 10.2 g/dl (14.0-18.0); Mean Corpuscular Hemoglobin 29.4 pg (25.0-34.0); Mean Corpuscular Hgb Conc 34.2 g/dL (32.0-36.0); Mean Corpuscular Volume 85.9 fL (80.0-100.0); Mean Platelet Volume 11.2 fL (9.4-12.4); Platelet Count 183 K/uL (130-400); RDW Standard Deviation 37.5 fL (36.4-46.3); Red Blood Count 3.47 M/uL (4.70-6.10)
[2023-11-11 06:32] LABS: INR 2.4 (0.9-1.1); Prothrombin Time 24.3 Seconds (9.0-12.0)
[2023-11-11 06:38] LABS: Albumin Level 3.1 gm/dl (3.4-5.0); BUN Creatinine Ratio 17.6 (10-20); Bilirubin,Total 0.4 mg/dl (0.2-1.0); Calcium 7.6 mg/dl (8.6-10.3); Creatinine Clr Calc Pharmacy 10.6 ml/min; Est GFR (African American) 8.1 ml/min; Globulin 3.2 gm/dl (2.5-4.0); Magnesium 1.7 mg/dl (1.7-2.4); Phosphorus 6.1 mg/dl (2.5-4.9); Potassium 3.8 mmol/L (3.5-5.1); Total Protein 6.3 gm/dl (6.0-8.3)
[2023-11-11] MEDS ORDERED: GLUCAGON FOR INJ 1 MG VIAL SQ PRN (08:30)
[2023-11-11] MEDS ORDERED: GLUCOSE 10 TAB/TUBE PO PRN (08:30)
[2023-11-11] MEDS ORDERED: CARBOHYDRATES FOR HYPOGLYCEMIA PO PRN (08:30)
[2023-11-11] MEDS ORDERED: GLUCOSE 40% GEL 15 GM TUBE PO PRN (08:30)
[2023-11-11] MEDS ORDERED: DEXTROSE 50% 50 ML SYRINGE IV PRN (08:30)
[2023-11-11] MEDS: ESCITALOPRAM OXALATE 10 MG TAB PO SCH (08:44)
[2023-11-11] MEDS: INSULIN ASPART PER UNIT CHARGE SC SCH (09:24)
[2023-11-11] MEDS: LABETALOL HCL IV 5 MG/ML 20ML IV PRN (11:15)
--- NOTE | 2023-11-11 11:21 | Nephrology Progress Note ---
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 Antibody levels were later undetectable 09/03 when patient was restarted on neoral therapy. * No documented history of underlying malignancy * Baseline creatinine had been 1.62.1 * IV methylprednisolone 500 mg daily x 3 days started yesterday * Start prednisone 60 mg daily once methylprednisolone complete * Screening for hepatitis B and C and IgG/IgM/IgA levels requested with next blood work re: possible treatment with Rituxan in the future (2) Acute renal failure (ARF): Plan: * 1 L 0.9 NS provided while in EMD * Etiology unclear - atypical presentation for acute membranous nephropathy; suspect possible component of ATN or CNI toxicity * Non-oliguric * No emergent indication for BRASS ROLLER at this time * Potential future indications for dialysis have been discussed * Dietary potassium restriction encouraged * Document I/O's and try to maintain slightly positive fluid balance * UA notable for glucose, protein, blood; microscopy with hyaline casts * Cyclosporine level pending - medication held pending level * PLA2r pending * Renal ultrasound without evidence of obstruction * If kidney dysfunction does not improve with therapy, consider kidney biopsy for definitive diagnosis (3) Renal vein thrombosis: Plan: * No flank pain or hematuria * Remains on warfarin therapy. INR is therapeutic (4) HTN (hypertension): Plan: * ISAIAS/ARB held due to GAYLA * Start amlodipine 5 mg daily * Remains on metoprolol succinate 50 mg twice daily Admission and Anticipated Discharge Date Admission Date: November 10, 2023 Subjective No acute events overnight. Duane is resting comfortably in bed this morning. No fevers or chills. Denies fluid retention or edema. Appetite fair. Good PO intake. No urinary complaints. Duane describes ~1 week of progressive malaise and non-specific symptoms of not feeling well. He reported some mild subjective low grade fevers but predominately poor appetite, mild nausea, fatigue, and some generalized weakness. Review of Systems Review of Systems: All systems reviewed & are unremarkable except as noted in HPI & below Physical Exam Constitutional: well developed; no acute distress Eyes: + anicteric sclerae ENMT: Mouth: no oral mucosal abnormality and oral mucous membranes not dry Neck: normal visual inspection and trachea midline Respiratory: normal respiratory effort Auscultation: lungs clear to auscultation bilaterally Cardiovascular: Rate/Rhythm: regular rate Heart Sounds: normal S1 and normal S2 Extremities: no edema Musculoskeletal: Extremities: no cyanosis and no clubbing Skin: normal turgor; no lesions Neurologic: Motor/Sensory: no tremor and no asterixis Psychiatric: Orientation: alert and oriented x 3 Results & Data Vital Signs (Past 12 Hours) Vital Signs Temp Pulse Pulse Resp BP BP Pulse Ox 11/11/23 10:57 187/105 H 11/11/23 10:51 36.4 C L 71 20 180/104 H 97 11/11/23 08:45 11/11/23 07:47 36.7 C 61 16 154/95 H 94 11/11/23 07:17 66 11/11/23 04:05 36.6 C 71 16 159/96 H 96 11/10/23 23:46 63 O2 Del Method 11/11/23 10:57 11/11/23 10:51 Room Air 11/11/23 08:45 Room Air 11/11/23 07:47 Room Air 11/11/23 07:17 11/11/23 04:05 Room Air 11/10/23 23:46 Laboratory Results Laboratory Results - last 24 hr 11/10/23 11/10/23 11/10/23 13:17 13:19 14:35 WBC 11.10 H RBC 3.46 L Hgb 10.5 L Hct 29.8 L MCV 86.1 MCH 30.3 MCHC 35.2 RDW Std Deviation 38.7 RDW Coeff of Elkin 12.2 Plt Count 193 MPV 11.1 Immature Gran % (Auto) 0.3 Neut % (Auto) 73.4 Lymph % (Auto) 17.2 [place] % (Auto) 7.8 Eos % (Auto) 1.0 Baso % (Auto) 0.3 Neut # (Auto) 8.15 H Lymph # (Auto) 1.91 [place] # (Auto) 0.87 H Eos # (Auto) 0.11 Baso # (Auto) 0.03 Immature Gran # (Auto) 0.03 PT INR Sodium 134 L Potassium 4.4 Chloride 98 Carbon Dioxide 21 Anion Gap 15 H BUN 140 H Creatinine 8.37 H* Est Cr Clr Drug Dosing 10.0 Est GFR ( Amer) 7.5 Est GFR (Non-Af Amer) 6.5 BUN/Creatinine Ratio 16.7 Glucose 111 H POC Glucose Calcium 7.6 L Phosphorus 8.9 H Magnesium 2.0 Total Bilirubin 0.4 AST 51 H ALT 55 H Alkaline Phosphatase 43 Total Creatine Kinase Troponin I High Sens 13.3 Total Protein 6.8 Albumin 3.5 Globulin 3.3 Albumin/Globulin Ratio 1.1 Lipase 302 H Procalcitonin 0.18 Urine Color Yellow Urine Appearance Clear Urine pH 6.5 Ur Specific [place] 1.014 Urine Protein 3+ H Urine Glucose (UA) Trace H Urine Ketones Negative Urine Blood 1+ H Urine Nitrite Negative Urine Bilirubin Negative Urine Urobilinogen Negative Ur Leukocyte Esterase Negative Urine WBC (Auto) 0-5 Urine RBC (Auto) 0-2 U Hyaline Cast (Auto) 3-5 H U Epithel Cells (Auto) 0-2 Urine Bacteria (Auto) None Seen Ur Random Creatinine 67.4 U Random Total Protein 468.2 H Ur Random Sodium 47 Protein/Creatinin Ratio 6.9 H Cyclosporine Adenovirus (PCR) Not Detected B. pertussis DNA (PCR) Not Detected B.parapertussis DNA PCR Not Detected C. pneumoniae DNA (PCR) Not Detected Coronavirus OC43 (PCR) Not Detected Coronavirus HKU1 (PCR) Not Detected Coronavirus 229E (PCR) Not Detected SARS-CoV-2 (PCR) Not Detected Coronavirus NL63 (PCR) Not Detected Hep Bs Antigen Human Metapneumovir PCR Not Detected Influenza Type A (PCR) Not Detected Influenza Type B (PCR) Not Detected M. pneumoniae (PCR) Not Detected Parainfluenza 1 (PCR) Not Detected Parainfluenza 2 (PCR) Not Detected Parainfluenza 3 (PCR) Not Detected Parainfluenza 4 (PCR) Not Detected RSV (PCR) Not Detected Entero/Rhino (PCR) Not Detected Phospholip A2 Rec IFA Phospholip A2 Rec VICKY 11/10/23 11/10/23 11/10/23 15:35 16:50 19:51 WBC RBC Hgb Hct MCV MCH MCHC RDW Std Deviation RDW Coeff of Elkin Plt Count MPV Immature Gran % (Auto) Neut % (Auto) Lymph % (Auto) [place] % (Auto) Eos % (Auto) Baso % (Auto) Neut # (Auto) Lymph # (Auto) [place] # (Auto) Eos # (Auto) Baso # (Auto) Immature Gran # (Auto) PT 23.4 H INR 2.3 H Sodium 135 L Potassium 3.9 Chloride 101 Carbon Dioxide 21 Anion Gap 13 H BUN 138 H Creatinine 7.88 H* D Est Cr Clr Drug Dosing 10.6 Est GFR ( Amer) 8.1 Est GFR (Non-Af Amer) 7.0 BUN/Creatinine Ratio 17.5 Glucose 182 H POC Glucose Calcium 7.2 L Phosphorus 7.6 H Magnesium 1.8 Total Bilirubin AST ALT Alkaline Phosphatase Total Creatine Kinase Troponin I High Sens Total Protein Albumin Globulin Albumin/Globulin Ratio Lipase Procalcitonin Urine Color Urine Appearance Urine pH Ur Specific [place] Urine Protein Urine Glucose (UA) Urine Ketones Urine Blood Urine Nitrite Urine Bilirubin Urine Urobilinogen Ur Leukocyte Esterase Urine WBC (Auto) Urine RBC (Auto) U Hyaline Cast (Auto) U Epithel Cells (Auto) Urine Bacteria (Auto) Ur Random Creatinine U Random Total Protein Ur Random Sodium Protein/Creatinin Ratio Cyclosporine Pending Adenovirus (PCR) B. pertussis DNA (PCR) B.parapertussis DNA PCR C. pneumoniae DNA (PCR) Coronavirus OC43 (PCR) Coronavirus HKU1 (PCR) Coronavirus 229E (PCR) SARS-CoV-2 (PCR) Coronavirus NL63 (PCR) Hep Bs Antigen Human Metapneumovir PCR Influenza Type A (PCR) Influenza Type B (PCR) M. pneumoniae (PCR) Parainfluenza 1 (PCR) Parainfluenza 2 (PCR) Parainfluenza 3 (PCR) Parainfluenza 4 (PCR) RSV (PCR) Entero/Rhino (PCR) Phospholip A2 Rec IFA Pending Phospholip A2 Rec VICKY Pending 11/11/23 11/11/23 11/11/23 05:40 05:45 08:35 WBC 6.70 RBC 3.47 L Hgb 10.2 L Hct 29.8 L MCV 85.9 MCH 29.4 MCHC 34.2 RDW Std Deviation 37.5 RDW Coeff of Elkin 12.0 Plt Count 183 MPV 11.2 Immature Gran % (Auto) Neut % (Auto) Lymph % (Auto) [place] % (Auto) Eos % (Auto) Baso % (Auto) Neut # (Auto) Lymph # (Auto) [place] # (Auto) Eos # (Auto) Baso # (Auto) Immature Gran # (Auto) PT 24.3 H INR 2.4 H Sodium 135 L Potassium 3.8 Chloride 103 Carbon Dioxide 18 L Anion Gap 14 H BUN 138 H Creatinine 7.82 H* Est Cr Clr Drug Dosing 10.6 Est GFR ( Amer) 8.1 Est GFR (Non-Af Amer) 7.0 BUN/Creatinine Ratio 17.6 Glucose 230 H POC Glucose 158 H Calcium 7.6 L Phosphorus 6.1 H Magnesium 1.7 Total Bilirubin 0.4 AST 33 ALT 44 Alkaline Phosphatase 35 Total Creatine Kinase 337 H Troponin I High Sens Total Protein 6.3 Albumin 3.1 L Globulin 3.2 Albumin/Globulin Ratio 1.0 Lipase Procalcitonin Urine Color Urine Appearance Urine pH Ur Specific [place] Urine Protein Urine Glucose (UA) Urine Ketones Urine Blood Urine Nitrite Urine Bilirubin Urine Urobilinogen Ur Leukocyte Esterase Urine WBC (Auto) Urine RBC (Auto) U Hyaline Cast (Auto) U Epithel Cells (Auto) Urine Bacteria (Auto) Ur Random Creatinine U Random Total Protein Ur Random Sodium Protein/Creatinin Ratio Cyclosporine Adenovirus (PCR) B. pertussis DNA (PCR) B.parapertussis DNA PCR C. pneumoniae DNA (PCR) Coronavirus OC43 (PCR) Coronavirus HKU1 (PCR) Coronavirus 229E (PCR) SARS-CoV-2 (PCR) Coronavirus NL63 (PCR) Hep Bs Antigen Pending Human Metapneumovir PCR Influenza Type A (PCR) Influenza Type B (PCR) M. pneumoniae (PCR) Parainfluenza 1 (PCR) Parainfluenza 2 (PCR) Parainfluenza 3 (PCR) Parainfluenza 4 (PCR) RSV (PCR) Entero/Rhino (PCR) Phospholip A2 Rec IFA Phospholip A2 Rec VICKY PG Care Time/CCT Total # of Minutes Spent Total Time Spent with Patient: Total time spent is greater than 50% in coordination of care (as documented) at patient's floor/unit and/or counseling patient: Coding Level of Care Code 80302 SUB INP/OBS CARE 3/50MIN Diagnoses Chronic membranous glomerulonephritis N03.2 Acute renal failure (ARF) N17.9 Renal vein thrombosis I82.3 Hypertension, unspecified type I10 Hypertension type: unspecified (4) HTN (hypertension) Hypertension type: unspecified Qualified Code(s): I10 - Essential (primary) hypertension
[2023-11-11] MEDS: amLODIPine BESYLATE 5 MG TAB PO SCH (11:54)
--- NOTE | 2023-11-11 14:57 | Hospitalist Progress Note ---
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 Bio fire here now is negative-raises the question of COVAN He has been off of ARB/ISAIAS inhibitor UA with 3+ protein, 1+ blood, hyaline casts, UPCR quite elevated at 6.9. CK only minimally elevated in the 300s Renal ultrasound with renal cysts but no obstruction He is nonoliguric, with normal potassium and serum bicarbonate He is hypertensive Nephrology consulted and reordered cyclosporine levels, phospholipase A2 receptor antibody levels, but Will pending, started high-dose steroids empirically Creatinine improved today to 7.8 Continue IV Solu-Medrol 500 mg daily x 3-day course, then prednisone 60 mg daily starting on 11/12 Avoid nephrotoxic agents, renally dose medications-holding home allopurinol, as needed Lasix Blood pressure control-IV labetalol was given, now give IV hydralazine as needed, added amlodipine 5 mg daily, continue home Toprol-XL Measure strict I's and O's-discussed with nursing to get urinal or hat in toilet Nephrology now recommends holding cyclosporine 150mg BID until level [id number] cyclosporine level Phospholipase A2 antibody, hepatitis B, C, immunoglobulins ordered, pending-will follow Follow BMP Consider renal biopsy if kidney function not improving with therapy as per nephrology (2) Chronic membranous glomerulonephritis: Plan: Dx in 1998; Biopsy-proven Workup for Goodpasture's disease/vasculitis [place] [facility] [place] Negative immunological workup, negative ANCA, negative anti-GBM antibody With positive phospholipase A2 receptor antibody previously (3) Illness: Plan: Cold-like symptoms, myalgias, and fever on Monday/Friday 11/03 prior to admission. 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: Plan: History of renal vein thrombosis Continue home dose of warfarin-INR therapeutic Daily PT/INR levels as he is now on high-dose steroids which will affect his INR (6) HTN (hypertension): Plan: Patient remains hypertensive and with associated headache-was given IV labetalol on admission Continue Toprol-XL Nephrology add on amlodipine 5 mg daily Increase hydralazine to 10 mg IV every 8 hours as needed SBP greater than 170 or DBP greater than 100 Continue to monitor (7) Hyperparathyroidism: Plan: With PTH quite elevated at 531, vitamin D level low at 13 despite taking 2000 units of D3 daily. 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 No abdominal pain or back pains. No shortness of breath or chest pain. He reports having cold symptoms and fevers 1 week ago after his was diagnosed with COVID-19. He did not test himself at that time. His urine output is not being recorded as he has been urinating directly into the toilet. I discussed his care with nephrology. Telemetry with normal sinus rhythm with rates in the 70s to 80s Physical Exam Constitutional: WD/WN, vitals as above Respiratory: normal respiratory effort, lungs clear to auscultation Cardiovascular: RRR, no murmur, no edema Gastrointestinal (Abdomen): normal bowel sounds, soft, nontender, no hepatosplenomegaly Skin: no rashes, warm and dry Psychiatric: A+Ox3, euthymic affect Results & Data Results & Data Vital Signs (Past 12 Hours) Vital Signs Temp Pulse Pulse Resp BP BP BP 11/11/23 11:39 80 155/87 H 11/11/23 10:57 187/105 H 11/11/23 10:51 36.4 C L 71 20 180/104 H 11/11/23 08:45 11/11/23 07:47 36.7 C 61 16 154/95 H 11/11/23 07:17 66 11/11/23 04:05 36.6 C 71 16 159/96 H Pulse Ox O2 Del Method 11/11/23 11:39 11/11/23 10:57 11/11/23 10:51 97 Room Air 11/11/23 08:45 Room Air 11/11/23 07:47 94 Room Air 11/11/23 07:17 11/11/23 04:05 96 Room Air Laboratory Results CBC, BMP, phosphorus, vitamin D, PTH, urine protein to creatinine ratio, UA reviewed PG Care Time/CCT Total # of Minutes Spent Total Time Spent with Patient: Total time spent is greater than 50% in coordination of care (as documented) at patient's floor/unit and/or counseling patient: Coding Level of Care Code 77023 SUB INP/OBS CARE 3/50MIN Diagnoses Acute renal failure (ARF) N17.9 Chronic membranous glomerulonephritis N03.2 Illness R69 Pre-diabetes R73.03 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
[2023-11-11] MEDS: WARFARIN SOD 5 MG TAB PO SCH (16:47)
[2023-11-11] MEDS: ERGOCALCIFEROL 1250 MCG (50,000 UNITS) CAP PO SCH (16:47)
[2023-11-11] MEDS: hydrALAZINE HCL 20 MG/ML VIAL IV PRN (18:02)
[2023-11-11] MEDS ORDERED: CHOLECALCIFEROL 25 MCG (1000 UNITS) TAB PO SCH (21:00)
[2023-11-11] MEDS: MELATONIN 3 MG TAB PO PRN (21:13)
[2023-11-12 07:23] LABS: INR 3.6 (0.9-1.1); Prothrombin Time 34.9 Seconds (9.0-12.0)
[2023-11-12 07:38] LABS: Albumin Level 3.1 gm/dl (3.4-5.0); Bilirubin,Total 0.2 mg/dl (0.2-1.0); Calcium 8.2 mg/dl (8.6-10.3); Est GFR (African American) 7.6 ml/min; Est GFR (Non-African American) 6.5 ml/min; Immunoglobulin A 157.9 mg/dl (70-400); Immunoglobulin G 584.5 mg/dl (635-1741); Immunoglobulin M 108.1 mg/dl (45-281); Magnesium 1.6 mg/dl (1.7-2.4); Phosphorus 9.1 mg/dl (2.5-4.9); Potassium 3.7 mmol/L (3.5-5.1); Total Protein 6.1 gm/dl (6.0-8.3)
[2023-11-12 09:03] LABS: Estimated Average Glucose 128 mg/dl; Hemoglobin A1C 6.1 % (4.5-5.6)
[2023-11-12] MEDS: INSULIN HUMAN NPH SC SCH (09:04)
[2023-11-12] MEDS: MAGNESIUM SULFATE / D5W 1 GM/100 ML BAG IV ONE (09:32)
--- NOTE | 2023-11-12 11:34 | Nephrology Progress Note ---
Date of Service November 12, 2023 Assessment & Plan (1) Chronic membranous glomerulonephritis: Plan: * Diagnosis established by [facility] [place] kidney biopsy in 1998 * Treated for over 20 years with cyclosporine therapy * Course complicated by renal vein thrombosis requiring chronic warfarin therapy * Phospholipase A2 receptor antibody was found to be positive 08/03. Antibody levels were later undetectable 09/03 when patient was restarted on neoral therapy. * No documented history of underlying malignancy * Baseline creatinine had been 1.62.1 * IV methylprednisolone 500 mg daily x 3 days completed today * Start prednisone 60 mg daily once daily * If kidney dysfunction does not improve in the next few days, I would suggest kidney biopsy. This recommendation was discussed with Duane today. (2) Acute renal failure (ARF): Plan: * Etiology unclear - atypical presentation for acute membranous nephropathy; suspect possible component of ATN or CNI toxicity * Non-oliguric subjectively * No emergent indication for SHIRT BANDER at this time * Potential future indications for dialysis have been discussed. The procedure for HD catheter placement was discussed. If there is no improvement in kidney function in the next few days, HD may be considered. * Dietary potassium restriction encouraged * Document I/O's and try to maintain slightly positive fluid balance * UA notable for glucose, protein, blood; microscopy with hyaline casts * Cyclosporine level pending - medication held while on prednisone and pending level * PLA2r pending * Renal ultrasound without evidence of obstruction * If kidney dysfunction does not improve with therapy, consider kidney biopsy for definitive diagnosis * Screening for hepatitis B and C pending (3) Renal vein thrombosis: Plan: * No flank pain or hematuria * Remains on warfarin therapy. INR is therapeutic * Anticoagulation will need to be held next week if kidney biopsy and dialysis catheter placement are required (4) HTN (hypertension): Plan: * ISAIAS/ARB held due to GAYLA * Amlodipine 5 mg daily started yesterday * Remains on metoprolol succinate 50 mg twice daily (5) Hyperparathyroidism: Plan: * sPTH with 25OH D deficiency - started ergocalciferol 67738 units weekly * Hyperphosphatemia - dietary restriction + start Phoslo 1 tab [facility] Admission and Anticipated Discharge Date Admission Date: November 10, 2023 Subjective No acute events overnight. Duane feels well this AM. BP improved. He denies fluid retention or edema. He is breathing comfortably. Appetite is good. He reports some fatigue but otherwise no complaints. Review of Systems Review of Systems: All systems reviewed & are unremarkable except as noted in HPI & below Physical Exam Constitutional: well developed; no acute distress Eyes: + anicteric sclerae ENMT: Mouth: oral mucous membranes not dry Neck: normal visual inspection and trachea midline Respiratory: normal respiratory effort Auscultation: lungs clear to auscultation bilaterally Cardiovascular: Rate/Rhythm: regular rate Heart Sounds: normal S1 and normal S2 Extremities: no edema Musculoskeletal: Extremities: no cyanosis and no clubbing Skin: normal turgor; no jaundice Neurologic: Motor/Sensory: no tremor and no asterixis Psychiatric: Orientation: alert and oriented x 3 Results & Data Vital Signs (Past 12 Hours) Vital Signs Temp Pulse Pulse Resp BP Pulse Ox O2 Del Method 11/12/23 11:25 36.6 C 70 18 121/77 94 Room Air 11/12/23 09:00 Room Air 11/12/23 07:38 36.5 C 71 20 128/81 96 Room Air 11/12/23 07:19 74 11/12/23 04:20 36.6 C 74 16 142/83 H 96 Room Air 11/11/23 23:39 36.7 C 83 16 118/71 93 Room Air Laboratory Results Laboratory Results - last 24 hr 11/11/23 11/11/23 11/11/23 11:53 17:13 20:10 PT INR Sodium Potassium Chloride Carbon Dioxide Anion Gap BUN Creatinine Est Cr Clr Drug Dosing Est GFR ( Amer) Est GFR (Non-Af Amer) BUN/Creatinine Ratio Glucose POC Glucose 202 H 163 H 202 H Estimat Average Glucose Hemoglobin A1c Calcium Phosphorus Magnesium Total Bilirubin AST ALT Alkaline Phosphatase Total Protein Albumin Globulin Albumin/Globulin Ratio IgG IgA IgM Hep Bs Antibody Hep Bs Antibody, Quant Hep B Core Total Ab Hepatitis C Antibody 11/12/23 11/12/23 06:19 07:55 PT 34.9 H INR 3.6 H Sodium 134 L Potassium 3.7 Chloride 99 Carbon Dioxide 18 L Anion Gap 17 H BUN 149 H Creatinine 8.29 H* D Est Cr Clr Drug Dosing 10.0 Est GFR ( Amer) 7.6 Est GFR (Non-Af Amer) 6.5 BUN/Creatinine Ratio 18.0 Glucose 162 H POC Glucose 167 H Estimat Average Glucose 128 Hemoglobin A1c 6.1 H Calcium 8.2 L Phosphorus 9.1 H Magnesium 1.6 L Total Bilirubin 0.2 AST 20 ALT 33 Alkaline Phosphatase 32 L Total Protein 6.1 Albumin 3.1 L Globulin 3.0 Albumin/Globulin Ratio 1.0 IgG 584.5 L IgA 157.9 IgM 108.1 Hep Bs Antibody Pending Hep Bs Antibody, Quant Pending Hep B Core Total Ab Pending Hepatitis C Antibody Pending PG Care Time/CCT Total # of Minutes Spent Total Time Spent with Patient: Total time spent is greater than 50% in coordination of care (as documented) at patient's floor/unit and/or counseling patient: Coding Level of Care Code 00627 SUB INP/OBS CARE 3/50MIN Diagnoses Chronic membranous glomerulonephritis N03.2 Acute renal failure (ARF) N17.9 Renal vein thrombosis I82.3 Hypertension, unspecified type I10 Hypertension type: unspecified Hyperparathyroidism E21.3 (4) HTN (hypertension) Hypertension type: unspecified Qualified Code(s): I10 - Essential (primary) hypertension
--- NOTE | 2023-11-12 11:51 | Hospitalist Progress Note ---
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 Bio fire here now is negative-raises the question of COVAN He has been off of ARB/ISAIAS inhibitor UA with 3+ protein, 1+ blood, hyaline casts, UPCR quite elevated at 6.9. CK only minimally elevated in the 300s Renal ultrasound with renal cysts but no obstruction He remains nonoliguric, with normal potassium and serum bicarbonate He was hypertensive on admission with associated STRANGE and now that is improved Nephrology consulted and reordered cyclosporine levels, phospholipase A2 receptor antibody levels, started high-dose steroids empirically Creatinine improved initially to 7.8, but now back up to 8.29 Continue IV Solu-Medrol 500 mg daily x 3-day course, then prednisone 60 mg daily starting on 11/12 Avoid nephrotoxic agents, renally dose medications-holding home allopurinol and as needed Lasix Blood pressure control is now improved-- added amlodipine 5 mg daily, continue home Toprol-XL, IV hydralazine prn Measure strict I's and O's Nephrology now recommends holding cyclosporine 150mg BID until level [id number] cyclosporine level Phospholipase A2 antibody, hepatitis B, C pending-will follow Immunoglobulins show mildly low IgG If renal function not improving over next few days, Nephro recommends renal bi opsy-this would require transfer out Follow BMP (2) Chronic membranous glomerulonephritis: Plan: Dx in 1998; Biopsy-proven Workup for Goodpasture's disease/vasculitis in [place] at [facility] [place] Negative immunological workup, negative ANCA, negative anti-GBM antibody, no SLE With positive phospholipase A2 receptor antibody previously c/w primary membranous GN (3) Illness: Plan: Cold-like symptoms, myalgias, and fever on Monday/Friday 11/03 prior to admission. had COVID one week ago and his symptoms started after that-he did not test himself at that time BioFire here neg now Patient also developed aching lower back pain at this time which is now resolved Symptoms are now improved except now with mild left facial pain--> could be developing sinusitis but will hold off on antibiotics given ongoing kidney failure--> start nasal saline (4) Pre-diabetes: Plan: With history of prediabetes, now on high-dose steroids with hyperglycemia--> improving now on insulin COntinue NovoLog supplemental insulin, Accu-Cheks Started NPH 8 units qAM hemoglobin A1c only 6.1% c/w prediabetes so should not need treatment after discharge dependent on length of tx with high dose steroids We will reassess prior to discharge if he will need treatment after discharge given ongoing steroids (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: Plan: History of renal vein thrombosis Continue home dose of warfarin-INR now elevated at 3.6 due to steroids HOLD coumadin starting 11/11 FOllow INR daily (6) HTN (hypertension): Plan: Patient remained hypertensive and with associated headache-was given IV labetalol on admission, IV hydralazine, started amlodipine--> BPs now improved Continue Toprol-XL, amlodipine 5 mg daily Continue hydralazine to 10 mg IV every 8 hours as needed for SBP greater than 170 or DBP greater than 100 Continue to monitor (7) Hyperparathyroidism: Plan: With PTH quite elevated at 531, vitamin D level low at 13 despite taking 2000 units of D3 daily. 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 Headache improved today, is mild. Is making a normal amount of urine, has not moved bowels in 2 days. Feels overall a little better. Is frustrated about kidney function not improving yet. Physical Exam Constitutional: WD/WN, vitals as above Respiratory: normal respiratory effort, lungs clear to auscultation Cardiovascular: RRR, no murmur, no edema Gastrointestinal (Abdomen): normal bowel sounds, soft, nontender, no hepatosplenomegaly Skin: no rashes, warm and dry Psychiatric: A+Ox3, euthymic affect Results & Data Results & Data Vital Signs (Past 12 Hours) Vital Signs Temp Pulse Pulse Resp BP Pulse Ox O2 Del Method 11/12/23 11:25 36.6 C 70 18 121/77 94 Room Air 11/12/23 09:00 Room Air 11/12/23 07:38 36.5 C 71 20 128/81 96 Room Air 11/12/23 07:19 74 11/12/23 04:20 36.6 C 74 16 142/83 H 96 Room Air Laboratory Results CBC, BMP, Mag, INR reviewed PG Care Time/CCT Total # of Minutes Spent Total Time Spent with Patient: Total time spent is greater than 50% in coordination of care (as documented) at patient's floor/unit and/or counseling patient: Coding Level of Care Code 24722 SUB INP/OBS CARE 2/35MIN Diagnoses Acute renal failure (ARF) N17.9 Chronic membranous glomerulonephritis N03.2 Illness R69 Pre-diabetes R73.03 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
[2023-11-12] MEDS: SODIUM CHLORIDE 0.65% NA SOLN 45 ML (OCEAN) SCH (12:57)
[2023-11-12] MEDS: CALCIUM ACETATE 667 MG CAP/TAB PO SCH (12:58)
[2023-11-13 06:45] LABS: Hematocrit (blood only) 31.1 % (42.0-52.0); Hemoglobin 10.8 g/dl (14.0-18.0); Mean Corpuscular Hemoglobin 30.1 pg (25.0-34.0); Mean Corpuscular Hgb Conc 34.7 g/dL (32.0-36.0); Mean Corpuscular Volume 86.6 fL (80.0-100.0); Mean Platelet Volume 10.9 fL (9.4-12.4); Platelet Count 208 K/uL (130-400); RDW Coefficient of Variation 12.3 % (11.5-14.5); RDW Standard Deviation 39.2 fL (36.4-46.3); Red Blood Count 3.59 M/uL (4.70-6.10); White Blood Count 17.35 K/ul (4.8-10.8)
[2023-11-13 06:54] LABS: Albumin Level 3.2 gm/dl (3.4-5.0); Calcium 8.8 mg/dl (8.6-10.3); Est GFR (African American) 7.7 ml/min; Est GFR (Non-African American) 6.6 ml/min; Magnesium 1.7 mg/dl (1.7-2.4); Phosphorus 9.8 mg/dl (2.5-4.9); Potassium 3.9 mmol/L (3.5-5.1)
[2023-11-13 06:56] LABS: Prothrombin Time 52.4 Seconds (9.0-12.0)
[2023-11-13 07:09] LABS: INR 5.6 (0.9-1.1)
[2023-11-13 07:10] LABS: BUN Creatinine Ratio 20.3 (10-20)
[2023-11-13] MEDS: predniSONE 20 MG TAB PO SCH (08:17)
--- NOTE | 2023-11-13 11:11 | Nephrology Progress Note ---
Date of Service November 13, 2023 Assessment & Plan (1) Chronic membranous glomerulonephritis: Plan: * Diagnosis established by [place] kidney biopsy in 1998 * Treated for over 20 years with cyclosporine therapy --> partial remission * Trough level on 11/09 was 257 * Course complicated by renal vein thrombosis requiring chronic warfarin therapy * Phospholipase A2 receptor antibody was found to be positive 08/03. Antibody levels were later undetectable 09/03 when patient was restarted on neoral therapy. Follow up level pending. * No documented history of underlying malignancy. * Baseline creatinine had been 1.62.1. * IV methylprednisolone 500 mg daily x 3 days completed today. * Started prednisone 60 mg daily yesterday. PPI added for GI protection. * If kidney dysfunction does not improve in the next few days, I would suggest kidney biopsy. This recommendation was discussed with Duane. Kidney biopsy is not performed at [facility] unfortunately. (2) Acute renal failure (ARF): Plan: * Etiology unclear - atypical presentation for acute membranous nephropathy; suspect possible component of ATN or CNI toxicity. * Creatinine stable. No signs of renal recovery. 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 Unfortunately, kidney dysfunction is notably advanced and without evidence of kidney recovery. Indications for dialysis were discussed. Duane is aware that hemodialysis does not aid the recovery process but would be appropriate for treatment of azotemia/uremia and to potentially expedite additional evaluation, including biopsy. Vascular surgery was consulted for hemodialysis permcath placement today. INR is supratherapeutic and warfarin has been held. If not available tomorrow, I would anticipate permcath placement and initiation of HD in the next few days. * Document I/O's and try to maintain slightly positive fluid balance. IV plasma- lyte has been ordered to help increase urine output and clear urea (notable azotemia secondary to steroids). * UA notable for glucose, protein, blood; microscopy with hyaline casts. * Cyclosporine level 257. Medication held while on prednisone. * PLA2r pending. * Renal ultrasound without evidence of obstruction. * If kidney dysfunction does not improve with therapy, I strongly recommend kidney biopsy for definitive diagnosis. * Screening for hepatitis B and C pending. (3) Renal vein thrombosis: Plan: * No flank pain or hematuria * Warfarin held. INR is supratherapeutic. TDC placement will be coordinated based on vascular availability and normalization of INR. * Anticoagulation will need to be held next week if kidney biopsy and dialysis catheter placement are required. (4) HTN (hypertension): Plan: * ISAIAS/ARB held due to GAYLA. * Amlodipine 5 mg daily. BP improved with medication and has been otherwise appropriate. * Remains on metoprolol succinate 50 mg twice daily (5) Hyperparathyroidism: Plan: * sPTH with 25OH D deficiency - started ergocalciferol 01082 units weekly. * Hyperphosphatemia - dietary restriction + Phoslo 1 tab QAC. Admission and Anticipated Discharge Date Admission Date: November 10, 2023 Subjective No acute events overnight. Duane was resting comfortably in his hospital bed this morning. He continues to feel reasonably well. He states that he feels "jittery" from the steroids. He is otherwise tolerating treatment well. He denies fevers or chills. Some associated difficulty sleeping reported. Denies fluid retention or swelling. Appetite remains good. No nausea. Review of Systems Review of Systems: All systems reviewed & are unremarkable except as noted in HPI & below Physical Exam Constitutional: well developed; no acute distress Eyes: + anicteric sclerae ENMT: Mouth: no oral mucosal abnormality and oral mucous membranes not dry Neck: normal visual inspection and trachea midline Respiratory: normal respiratory effort Auscultation: lungs clear to auscultation bilaterally Cardiovascular: Rate/Rhythm: regular rate Heart Sounds: normal S1 and normal S2 Extremities: no edema Musculoskeletal: Extremities: no cyanosis and no clubbing Skin: normal turgor; no lesions and no jaundice Neurologic: Motor/Sensory: no tremor and no asterixis Psychiatric: Orientation: alert and oriented x 3 Results & Data Vital Signs (Past 12 Hours) Vital Signs Temp Pulse Pulse Resp BP Pulse Ox O2 Del Method 11/13/23 09:52 66 11/13/23 08:00 69 11/13/23 07:44 36.6 C 67 18 150/92 H 98 Room Air 11/13/23 02:38 36.8 C 66 18 140/84 97 Room Air Laboratory Results Laboratory Results - last 24 hr 11/12/23 11/12/23 11/12/23 12:06 16:53 20:18 WBC RBC Hgb Hct MCV MCH MCHC RDW Std Deviation RDW Coeff of Elkin Plt Count MPV PT INR Sodium Potassium Chloride Carbon Dioxide Anion Gap BUN Creatinine Est Cr Clr Drug Dosing Est GFR ( Amer) Est GFR (Non-Af Amer) BUN/Creatinine Ratio Glucose POC Glucose 189 H 175 H 186 H Calcium Phosphorus Magnesium Albumin 11/13/23 11/13/23 06:02 08:16 WBC 17.35 H RBC 3.59 L Hgb 10.8 L Hct 31.1 L MCV 86.6 MCH 30.1 MCHC 34.7 RDW Std Deviation 39.2 RDW Coeff of Elkin 12.3 Plt Count 208 MPV 10.9 PT 52.4 H INR 5.6 H* Sodium 135 L Potassium 3.9 Chloride 97 L Carbon Dioxide 21 Anion Gap 17 H BUN 167 H Creatinine 8.22 H* Est Cr Clr Drug Dosing 10.0 Est GFR ( Amer) 7.7 Est GFR (Non-Af Amer) 6.6 BUN/Creatinine Ratio 20.3 H Glucose 149 H POC Glucose 140 H Calcium 8.8 Phosphorus 9.8 H Magnesium 1.7 Albumin 3.2 L PG Care Time/CCT Total # of Minutes Spent Total Time Spent with Patient: Total time spent is greater than 50% in coordination of care (as documented) at patient's floor/unit and/or counseling patient: Coding Level of Care Code 20479 SUB INP/OBS CARE 3/50MIN Diagnoses Chronic membranous glomerulonephritis N03.2 Acute renal failure (ARF) N17.9 Renal vein thrombosis I82.3 Hypertension, unspecified type I10 Hypertension type: unspecified Hyperparathyroidism E21.3 (4) HTN (hypertension) Hypertension type: unspecified Qualified Code(s): I10 - Essential (primary) hypertension
[2023-11-13] MEDS: PLASMA-LYTE A 1,000 ML IV SCH (12:57)
[2023-11-13] MEDS: PANTOprazole 40 MG TAB PO SCH (12:58)
--- NOTE | 2023-11-13 14:35 | Hospitalist Progress Note ---
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 Bio fire here now is negative-raises the question of COVID associated nephropathy (COVAN) UA with 3+ protein, 1+ blood, hyaline casts, UPCR quite elevated at 6.9. CK only minimally elevated in the 300s Renal ultrasound with renal cysts but no obstruction He remains nonoliguric, with normal potassium and serum bicarbonate, no volume overload, however is with worsening uremia He was hypertensive on admission with associated STRANGE and now that is improved Nephrology consulted and reordered cyclosporine levels which are in therapeutic range Phospholipase A2 receptor antibody levels ordered and pending Immunoglobulins show mildly low IgG, but normal IgM and IgA Started high-dose steroids empirically with IV Solu-Medrol 500 mg daily x 3 days, but with no improvement thus far and renal function with creatinine re maining at 8.2 Continue steroids in the form of prednisone 60 mg daily Avoid nephrotoxic agents, renally dose medications-holding home allopurinol and Lasix Nephrology started Plasma-Lyte 100 mL/h x 2 L Start calcium acetate with meals, vitamin D supplementation for secondary hyperparathyroidism Blood pressure control is now improved after adding amlodipine 5 mg daily; continue home Toprol-XL, IV hydralazine prn Measure strict I's and O's Nephrology recommends holding cyclosporine 150mg BID until level returns- cyclosporine level at 257-will discuss with nephrology about resuming p.o. cyclosporine Follow-up phospholipase A2 antibody, hepatitis B, C when available Follow BMP N.p.o. after midnight and with vascular surgery consultation for tunneled IJ dialysis catheter placement for the next day or so-will likely need vitamin K reversal of INR-defer to vascular surgery Plan to start dialysis after dialysis catheter placement He will need a kidney biopsy at tertiary [facility] but plans for this will be done as an outpatient as per nephrology (2) Chronic membranous glomerulonephritis: Plan: Dx in 1998; Biopsy-proven Workup for Goodpasture's disease/vasculitis in 2020 at [facility] [place]: Negative immunological workup, negative ANCA, negative anti-GBM antibody, no SLE With positive phospholipase A2 receptor antibody previously c/w primary membranous GN (3) Depression: Plan: Continue home Lexapro Having insomnia with steroids-add trazodone 50mg po hs (4) Pre-diabetes: Plan: With history of prediabetes, now on high-dose steroids with hyperglycemia--> improving now on insulin Continue NovoLog supplemental insulin, Accu-Cheks Continue NPH 8 units qAM HgbA1c only 6.1% c/w prediabetes so should not need treatment after discharge dependent on length of tx with high dose steroids We will reassess prior to discharge if he will need treatment after discharge given ongoing steroids (5) nursing home (current) use of anticoagulants: Plan: History of renal vein thrombosis Continue home dose of warfarin-INR now for their elevated at 5.6 due to steroids Continue to HOLD coumadin starting 11/11 Follow INR daily May need vitamin K prior to tunneled IJ catheter placement (6) Illness: Plan: Had cold-like symptoms, myalgias, and fever on Monday/Friday 11/03 prior to admission. had COVID one week ago and his symptoms started after that-he did not test himself at that time but likely had COVID BioFire here neg now Patient also developed aching lower back pain at this time which is now resolved Symptoms are now improved except now with mild left facial pain--> could be developing sinusitis but will hold off on antibiotics given ongoing kidney failure--> started nasal saline (7) HTN (hypertension): Plan: Patient remained hypertensive and with associated headache-was given IV labetalol on admission, IV hydralazine, started amlodipine--> BPs now improved Continue Toprol-XL, amlodipine 5 mg daily Continue hydralazine 10 mg IV every 8 hours as needed for SBP greater than 170 or DBP greater than 100 Continue to monitor (8) Hyperparathyroidism: Plan: With PTH quite elevated at 531, vitamin D level low at 13 despite taking 2000 units of D3 daily. 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 Asking for something to help him sleep. He understands that he will have to start on dialysis this week. He denies shortness of breath. He is having trouble moving his bowels and has a history of bleeding with hemorrhoids and is on Coumadin. N o bleeding currently and his INR is elevated at 5.6 He denies nausea or vomiting He is making a normal amount of urine Telemetry with normal sinus rhythm with rates in the 60s to 70s. I discussed his care with his at the bedside Physical Exam Constitutional: WD/WN, vitals as above Respiratory: normal respiratory effort, lungs clear to auscultation Cardiovascular: RRR, no murmur, no edema Gastrointestinal (Abdomen): normal bowel sounds, soft, nontender, no hepatosplenomegaly Skin: no rashes, warm and dry Psychiatric: A+Ox3, euthymic affect Results & Data Results & Data Vital Signs (Past 12 Hours) Vital Signs Temp Pulse Pulse Resp BP Pulse Ox O2 Del Method 11/13/23 11:26 36.9 C 65 16 142/81 H 95 Room Air 11/13/23 09:52 66 11/13/23 08:00 69 11/13/23 07:44 36.6 C 67 18 150/92 H 98 Room Air 11/13/23 02:38 36.8 C 66 18 140/84 97 Room Air Laboratory Results CBC, BMP, phosphorus, magnesium, INR reviewed PG Care Time/CCT Total # of Minutes Spent Total Time Spent with Patient: Total time spent is greater than 50% in coordination of care (as documented) at patient's floor/unit and/or counseling patient: Coding Level of Care Code 95277 SUB INP/OBS CARE 2/35MIN Diagnoses Acute renal failure (ARF) N17.9 Chronic membranous glomerulonephritis N03.2 Depression F32.9 Pre-diabetes 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
[2023-11-13] MEDS: POLYETHYLENE (MIRALAX) 17 GM PACK PO SCH (15:38)
[2023-11-13] MEDS: SENNA 8.6 MG TAB PO SCH (21:23)
[2023-11-13] MEDS: traZODone HCL 50 MG TAB PO SCH (21:24)
[2023-11-14] MEDS ORDERED: Nursing to Pharmacy Communication SCH (00:30)
[2023-11-14] MEDS: INSULIN ASPART PER UNIT CHARGE SC SCH (06:08)
[2023-11-14 08:22] LABS: Basophils # (auto) 0.01 K/uL (0.00-0.20); Basophils % (auto) 0.1 %; Hematocrit (blood only) 27.8 % (42.0-52.0); Hemoglobin 9.8 g/dl (14.0-18.0); Immature Granulocytes # (auto) 0.08 K/uL (0.01-0.20); Immature Granulocytes % (auto) 0.5 %; Lymphocytes # (auto) 1.42 K/uL (1.20-3.40); Lymphocytes % (auto) 8.9 %; Mean Corpuscular Hemoglobin 30.3 pg (25.0-34.0); Mean Corpuscular Hgb Conc 35.3 g/dL (32.0-36.0); Mean Corpuscular Volume 86.1 fL (80.0-100.0); Mean Platelet Volume 10.6 fL (9.4-12.4); Monocytes # (auto) 1.33 K/uL (0.11-0.59); Monocytes % (auto) 8.4 %; Neutrophils # (auto) 13.05 K/uL (1.40-6.50); Neutrophils % (auto) 82.1 %; Platelet Count 206 K/uL (130-400); RDW Coefficient of Variation 12.3 % (11.5-14.5); Red Blood Count 3.23 M/uL (4.70-6.10); White Blood Count 15.89 K/ul (4.8-10.8)
[2023-11-14 08:40] LABS: INR 3.6 (0.9-1.1)
[2023-11-14 08:43] LABS: Albumin Level 2.9 gm/dl (3.4-5.0); Calcium 8.1 mg/dl (8.6-10.3); Creatinine Clr Calc Pharmacy 11.5 ml/min; Est GFR (Non-African American) 7.8 ml/min; Phosphorus 9.1 mg/dl (2.5-4.9); Potassium 3.7 mmol/L (3.5-5.1)
[2023-11-14 09:03] LABS: BUN Creatinine Ratio 22.2 (10-20)
--- NOTE | 2023-11-14 10:04 | Consultation ---
Date of Consultation November 14, 2023 Assessment & Plan (1) Acute renal failure: Pt with worsening renal fxn and now requiring HD per nephrology. Planning on permcath insertion in OR tomorrow if INR 2.0. Procedure, risks, benefits, and alternatives discussed with pt by myself at Dr Blanco's request. Pt expresses understanding and agreement. History of Present Illness Reason for Consultation: ESRD Attending Physician: Fredis Khanna MD History of Present Illness 57 yo m with hx of HTN, CKD, gout, dyslipidemia, anemia, pulmonary nodules, GERD, renal vein thrombosis, mitral regurgitation, admitted with worsening renal fxn and general malaise, seen in consultation today for permcath insertion for HD. Pt states feeling fatigued. Denies STRANGE, fever, chest pain, SOB, abd pain, N/V, rest pain, claudication, other complaints. Allergies Allergy/AdvReac Type Severity Reaction Status Date / Time NSAIDS (Non-Steroidal Allergy Unknown Unknown Verified 09/11/23 15:36 Anti-Inflamma Home Medications Medication Instructions Recorded Confirmed Type escitalopram oxalate 5 mg tablet 10 mg PO QAM 01/02/23 11/10/23 History metoprolol succinate 50 mg 50 mg PO BID #180 tabs 06/15/23 11/10/23 Rx tablet,extended release 24 hr cyclosporine modified 100 mg 100 mg PO BID #180 caps 08/02/23 11/10/23 Rx capsule (Neoral) allopurinol 300 mg tablet 300 mg PO QAM 08/22/23 11/10/23 History cholecalciferol (vitamin D3) 50 50 mcg PO PM 08/22/23 11/10/23 History mcg (2,000 unit) capsule warfarin 5 mg tablet 7.5 mg PO UD 08/22/23 11/10/23 History furosemide 20 mg tablet 20 mg PO DAILY PRN ankle edema #30 08/31/23 11/10/23 Rx tabs cyclosporine modified 25 mg 50 mg (2 x 25 mg) PO BID #120 caps 10/16/23 11/10/23 Rx capsule (Neoral) hydrocortisone 2.5 % topical cream 1 applic KS BID PRN hemorrhoids 30 11/09/23 11/10/23 Rx with perineal applicator days #30 grams (Anusol-HC) hydrocortisone acetate 25 mg 25 mg KS DAILY PRN Other 30 days 11/09/23 11/10/23 Rx rectal suppository #24 ea rosuvastatin 40 mg tablet (Crestor) 40 mg PO PM 11/10/23 11/10/23 History Patient History Medical History Chronic anemia Atrial fibrillation hx of Apr 2020 during hospitalization--on warfarin/metoprolol--per PCP note 06/28/21 HR noted to be regular rhythm Multinodular thyroid Hx of gout Anemia Chronic membranous glomerulonephritis Cushings syndrome Depression Hypercholesterolemia Multinodular thyroid Nephrotic syndrome Renal/ureteral disease 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 Surgical History Status post biopsy of kidney History of colonoscopy History of wisdom tooth extraction S/P thyroid biopsy History of bronchoscopy (~04/2020) Family History Other Hypertension No family history of adverse response to anesthesia Denies family history of Ovarian cancer Prostate cancer Myocardial infarction Breast cancer Colorectal cancer Social History Smoking Status: Never smoker Second Hand Exposure: No; Do You Dip or Chew Tobacco: No; Hx Alcohol Use: No Hx Substance Use: No Preferred Language: Lao Communication Ability: Effective Visual Impairment: Limited Hearing Ability: Normal Mortgage Servicing Specialist Required: No Beliefs That Will Affect Care: None marital status: Current Living Situation: Spouse current occupational status: employed 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 How many Children do You have: 2 Feels Safe at Home: Yes Diet: low salt caffeine: Yes (1 soda daily) Dental Care, Regularly: Yes Physical Activity Frequency: Does not Exercise Seatbelt Use: always Do you think of yourself as: straight/heterosexual Gender Identity: Male Assistive Devices: Glasses Review of Systems Review of Systems: All systems reviewed & are unremarkable except as noted in HPI & below Physical Exam Constitutional: WD/WN, vitals as above cooperative; not in distress ENMT: Ears: no hearing impairment Neck: trachea midline Respiratory: normal respiratory effort, lungs clear to auscultation Auscultation: + diminished lung sounds Cardiovascular: Rate/Rhythm: regular rate and regular rhythm Vessels: femoral pulses present, posterior tibial pulses present, dorsalis pedis pulses present and radial pulses present; + abnormal peripheral pulses Extremities: normal capillary refill and + edema Gastrointestinal (Abdomen): Inspection/Auscultation: abdomen normal to inspection and normal bowel sounds Percussion/Palpation: abdomen soft; abdomen nontender Musculoskeletal: no cyanosis or clubbing, extremities motor strength 5/5 Skin: no rashes, warm and dry Neurologic: moves all extremities and awake; no focal motor deficits and not confused Psychiatric: A+Ox3, euthymic affect Results & Data Vital Signs (Past 12 Hours) Vital Signs Temp Pulse Pulse Resp BP Pulse Ox O2 Del Method 11/14/23 08:00 36.5 C 62 16 155/94 H 97 Room Air 11/14/23 07:38 57 L 11/14/23 03:17 36.5 C 56 L 18 128/74 94 Room Air 11/13/23 23:16 67 11/13/23 23:03 36.5 C 58 L 16 139/88 97 Room Air
[2023-11-14] MEDS: PHYTONADIONE 5 MG in DEXTROSE 5% 50 ML IV ONE (10:56)
--- NOTE | 2023-11-14 13:15 | Nephrology Progress Note ---
Date of Service November 14, 2023 Assessment & Plan (1) Acute renal failure: (2) Hyperphosphatemia associated with renal failure: (3) HTN (hypertension): (4) Proteinuria: (5) Chronic membranous glomerulonephritis: Plan Stage IIIA CKD, baseline creatinine 1.4-1.5 mg/dl with history of membranous nephropathy for almost 25 years, admitted with GAYLA noted on outpatient lab, creatinine was 8.1. Recently his serum cyclosporine levels were subtherapeutic and Neoral dose was increased to 150 mg BID. He was admitted to the hospital in August with GAYLA and progressive worsening of kidney function over 2 months, during hospitalization, creatinine peaked to above 5, eventually improved and on discharge his creatinine was 2.2. He continued to have high-grade proteinuria consistent with membranous nephropathy with 5 to 6 g of proteinuria but no hematuria. Renal ultrasound and renal artery Doppler was unremarkable. Has history of chronic anemia hemoglobin 10.3-11. Unclear etiology for GAYLA, no postrenal obstruction. Clinically not suggestive of prerenal or volume depletion. ? Progressive worsening of underlying membranous nephropathy as well as significant chronic tubular interstitial changes and fibrosis with history of membranous nephropathy for more than 25 years. Considering significant worsening of kidney function and elevated BUN above 150, tentatively plan for tunneled dialysis catheter which is on hold until tomorrow because of elevated INR, warfarin on hold. Kidney function slightly improved today, creatinine down to 7.2, electrolyte acceptable. --Continue current dose of prednisone, continue to hold Neoral, wait for trough level. --Will check lab tomorrow morning and if there is continued improvement in kidney function and electrolyte acceptable, will consider holding off on tunneled dialysis catheter however, if no further improvement in kidney function, will go ahead with tunneled dialysis catheter and first dialysis tomorrow. Will have to arrange for kidney biopsy as an outpatient. -- Advised to keep well-hydrated, monitor intake and output, aim for net positive as he does not have any sign of volume overload. Admission and Anticipated Discharge Date Admission Date: November 10, 2023 Fran Zepeda was seen and evaluated this morning with his family at bedside. Overall he reports feeling well, reports decent urine output, no shortness of breath. Lab was notable for slight improvement in kidney function, creatinine down to 7.2 from 8.2 yesterday, electrolyte decent. Phosphorus elevated at 9.1, on phosphorus binder. Review of Systems Review of Systems: Detailed review of system was done and pertinent positives and negatives are mentioned above. Physical Exam Constitutional: WD/WN, vitals as above no acute distress Eyes: + anicteric sclerae Respiratory: Auscultation: lungs clear to auscultation bilaterally Musculoskeletal: Extremities: extremities normal to inspection Skin: no rashes, warm and dry Neurologic: no focal motor deficits Psychiatric: Orientation: alert and oriented x 3 Affect: euthymic affect Results & Data Vital Signs (Past 12 Hours) Vital Signs Temp Pulse Pulse Resp BP Pulse Ox O2 Del Method 11/14/23 11:30 36.6 C 65 18 148/89 H 96 Room Air 11/14/23 08:00 36.5 C 62 16 155/94 H 97 Room Air 11/14/23 07:38 57 L 11/14/23 03:17 36.5 C 56 L 18 128/74 94 Room Air PG Care Time/CCT Total # of Minutes Spent Total Time Spent with Patient: Total time spent is greater than 50% in coordination of care (as documented) at patient's floor/unit and/or counseling patient: Coding Level of Care Code 73060 SUB INP/OBS CARE 2/35MIN Diagnoses Acute renal failure N17.9 Hyperphosphatemia associated with renal failure E83.39; N19 Hypertension, unspecified type I10 Hypertension type: unspecified Proteinuria R80.9 Chronic membranous glomerulonephritis N03.2 (3) HTN (hypertension) Hypertension type: unspecified Qualified Code(s): I10 - Essential (primary) hypertension
--- NOTE | 2023-11-14 14:49 | Hospitalist Progress Note ---
Date of Service November 14, 2023 Assessment & Plan (1) Acute renal failure (ARF): Plan: Acute on chronic kidney disease stage III. Appreciate nephrology and vascular surgery consultations. Creatinine improved slightly to 7.2 today but creatinine level tomorrow, November 14, will determine if tunneled dialysis catheter placement is needed for onset of hemodialysis. Daily labs ordered. (2) Chronic membranous glomerulonephritis: Plan: Dx in 1998; Biopsy-proven. Workup for Goodpasture's disease/vasculitis in 2020 at [facility] [place]: Negative immunological workup, negative ANCA, negative anti-GBM antibody, no SLE. With positive phospholipase A2 receptor antibody previously c/w primary membranous GN. Currently on high-dose oral steroids. Monitor intake and output. Serial labs. Appreciate nephrology consultation and recommendations (3) Depression: Plan: Stable. Continue home Lexapro. Having insomnia with steroids- improved with addition of trazodone 50mg po hs (4) Pre-diabetes: Plan: With history of prediabetes. Glucose aggravated by steroid therapy. He is now on insulin therapy. HgbA1c 6.1% on admission. (5) alf (current) use of anticoagulants: Plan: History of renal vein thrombosis. Coumadin toxicity noted with INR elevated to 5.6 maximum and now down to 3.6. Coumadin remains on hold. Parenteral vitamin K administered today, November 13. This should ensure INR less than 2.0 so tunneled dialysis catheter can be placed tomorrow, November 14, if needed. (6) Illness: Plan: Recent viral illness. tested positive for COVID one week ago and his symptoms started after that. He did not test himself at that time but likely had COVID or some other viral illness. BioFire negative. Improved with steroid therapy (7) HTN (hypertension): Plan: Elevated earlier this admission. Amlodipine was added. Blood pressure has improved. Continue Toprol-XL. Using hydralazine IV on a as needed basis. (8) Hyperparathyroidism: Plan: PTH elevated at 531, vitamin D level low at 13 despite taking 2000 units of D3 daily. Calcium is low. 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 Started vitamin D2 50,000 units once weekly as per discussion with nephrology Plan Anticipate eventual discharge to home on oral prednisone. Hopefully within the next 48 to 72 hours Admission and Anticipated Discharge Date Admission Date: November 10, 2023 Subjective Alert and oriented. No distress. Vitamin K administered parenterally for elevated INR of 3.6. Creatinine down slightly to 7.2. If creatinine continues to improve tomorrow, November 14, nephrology states they will hold off on hemodialysis. Tunneled dialysis catheter placement tomorrow, November 14, if creatinine does not improve. Cyclosporine is on hold. He remains on oral prednisone therapy Review of Systems 2 Review of Systems: Constitutionalno fever or chills ENTno blurred vision, no double vision, no epistaxis, no sore throat Respiratoryno cough, no wheezing, no shortness of breath Cardiacno palpitations, no chest pain, no syncope Dorinda nausea, vomiting, diarrhea, melena, hematochezia GUno urinary retention, no urinary incontinence, no dysuria, no hematuria Musculoskeletalno joint pain, no muscle tenderness Skinno bruising, no rashes, no pruritus Neurono isolated weakness, no paresthesia, no weakness Psychno depression, no anxiety Physical Exam 2 Physical Exam: General-alert and oriented x3, no fever, no chills HEENT-head atraumatic and normocephalic, pupils equal and reactive to light, extraocular muscles intact Neck-no lymphadenopathy or thyromegaly, trachea midline Chest-clear to auscultation. No rales, wheezing or rhonchi Cardiac-regular rate and rhythm, normal S1 and S2 Abdomen-normal bowel sounds, no hepatosplenomegaly Extremities-no cyanosis, clubbing, or edema Neuro-cranial nerves II through XII intact, motor and sensory function within normal limits, strength symmetrical, no focal deficits Psych-normal affect, normal mood Results & Data Results & Data Vital Signs (Past 12 Hours) Vital Signs Temp Pulse Pulse Resp BP Pulse Ox O2 Del Method 11/14/23 14:15 68 11/14/23 11:30 36.6 C 65 18 148/89 H 96 Room Air 11/14/23 08:00 36.5 C 62 16 155/94 H 97 Room Air 11/14/23 07:38 57 L 11/14/23 03:17 36.5 C 56 L 18 128/74 94 Room Air Laboratory Results 11/14/23 07:23 11/14/23 07:23 PG Care Time/CCT Total # of Minutes Spent Total Time Spent with Patient: Total time spent is greater than 50% in coordination of care (as documented) at patient's floor/unit and/or counseling patient: Coding Level of Care Code 75589 SUB INP/OBS CARE MIN Diagnoses Acute renal failure (ARF) N17.9 Chronic membranous glomerulonephritis N03.2 Depression F32.9 Pre-diabetes R73.03 alf (current) use of anticoagulants Z79.01 Illness R69 Hypertension, unspecified type I10 Hypertension type: unspecified Hyperparathyroidism E21.3 (7) HTN (hypertension) Hypertension type: unspecified Qualified Code(s): I10 - Essential (primary) hypertension
[2023-11-15 07:04] LABS: Basophils # (auto) 0.01 K/uL (0.00-0.20); Basophils % (auto) 0.1 %; Hematocrit (blood only) 28.9 % (42.0-52.0); Hemoglobin 10.2 g/dl (14.0-18.0); Immature Granulocytes # (auto) 0.07 K/uL (0.01-0.20); Immature Granulocytes % (auto) 0.6 %; Lymphocytes # (auto) 1.51 K/uL (1.20-3.40); Lymphocytes % (auto) 12.8 %; Mean Corpuscular Hemoglobin 30.7 pg (25.0-34.0); Mean Corpuscular Hgb Conc 35.3 g/dL (32.0-36.0); Mean Platelet Volume 10.7 fL (9.4-12.4); Monocytes # (auto) 1.32 K/uL (0.11-0.59); Monocytes % (auto) 11.2 %; Neutrophils # (auto) 8.86 K/uL (1.40-6.50); Neutrophils % (auto) 75.3 %; Platelet Count 175 K/uL (130-400); RDW Coefficient of Variation 12.1 % (11.5-14.5); Red Blood Count 3.32 M/uL (4.70-6.10); White Blood Count 11.77 K/ul (4.8-10.8)
[2023-11-15 07:27] LABS: Albumin Level 2.9 gm/dl (3.4-5.0); Calcium 7.8 mg/dl (8.6-10.3); Creatinine Clr Calc Pharmacy 13.3 ml/min; Est GFR (African American) 10.9 ml/min; Est GFR (Non-African American) 9.4 ml/min; Phosphorus 8.3 mg/dl (2.5-4.9); Potassium 3.3 mmol/L (3.5-5.1)
[2023-11-15 07:32] LABS: INR 1.1 (0.9-1.1); Prothrombin Time 12.3 Seconds (9.0-12.0)
[2023-11-15 07:47] LABS: BUN Creatinine Ratio 27.3 (10-20)
[2023-11-15] MEDS: ceFAZolin 2000MG 2,000 MG/15 ML SYR IV SCH (09:38)
--- NOTE | 2023-11-15 09:50 | Nephrology Progress Note ---
Date of Service November 15, 2023 Assessment & Plan (1) Acute renal failure: (2) Hyperphosphatemia associated with renal failure: (3) HTN (hypertension): (4) Proteinuria: (5) Chronic membranous glomerulonephritis: Plan Stage IIIA CKD, baseline creatinine 1.4-1.5 mg/dl with history of membranous nephropathy for almost 25 years, admitted with GAYLA noted on outpatient lab, creatinine was 8.1. Recently his serum cyclosporine levels were subtherapeutic and Neoral dose was increased to 150 mg BID. He was admitted to the hospital in August with GAYLA and progressive worsening of kidney function over 2 months, during hospitalization, creatinine peaked to above 5, eventually improved and on discharge his creatinine was 2.2. He continued to have high-grade proteinuria consistent with membranous nephropathy with 5 to 6 g of proteinuria but no hematuria. Renal ultrasound and renal artery Doppler was unremarkable. Has history of chronic anemia hemoglobin 10.3-11. Unclear etiology for GAYLA, no postrenal obstruction. Clinically not suggestive of prerenal or volume depletion. ? Progressive worsening of underlying membranous nephropathy as well as significant chronic tubular interstitial changes and fibrosis with history of membranous nephropathy for more than 25 years. Kidney function slightly improved today, creatinine down to 6.1, electrolyte acceptable. --Continue current dose of prednisone, continue to hold Neoral, wait for trough level. --resume diet, cancel TDC. Will start the process to arrange for kidney biopsy as an outpatient. -- Advised to keep well-hydrated, monitor intake and output, aim for net positive as he does not have any sign of volume overload. Admission and Anticipated Discharge Date Admission Date: November 10, 2023 Fran Zepeda was seen and evaluated this morning with his family at bedside. Overall he reports feeling well, reports decent urine output, no shortness of breath. Lab was notable for continued improvement in kidney function, creatinine down to 6.1 from 7.2 from yesterday, electrolyte decent. Review of Systems Review of Systems: Detailed review of system was done and pertinent positives and negatives are mentioned above. Physical Exam Constitutional: WD/WN, vitals as above no acute distress Eyes: + anicteric sclerae Respiratory: Auscultation: lungs clear to auscultation bilaterally Musculoskeletal: Extremities: extremities normal to inspection Skin: no rashes, warm and dry Neurologic: no focal motor deficits Psychiatric: Orientation: alert and oriented x 3 Affect: euthymic affect Results & Data Vital Signs (Past 12 Hours) Vital Signs Temp Pulse Pulse Resp BP Pulse Ox O2 Del Method 11/15/23 05:42 62 11/15/23 02:41 36.4 C L 57 L 16 125/76 95 Room Air 11/14/23 22:13 36.7 C 63 18 143/85 H 95 Room Air 11/14/23 21:58 65 PG Care Time/CCT Total # of Minutes Spent Total Time Spent with Patient: Total time spent is greater than 50% in coordination of care (as documented) at patient's floor/unit and/or counseling patient: Coding Level of Care Code 35724 SUB INP/OBS CARE 2/35MIN Diagnoses Acute renal failure N17.9 Hyperphosphatemia associated with renal failure E83.39; N19 Hypertension, unspecified type I10 Hypertension type: unspecified Proteinuria R80.9 Chronic membranous glomerulonephritis N03.2 (3) HTN (hypertension) Hypertension type: unspecified Qualified Code(s): I10 - Essential (primary) hypertension
[2023-11-15] MEDS: INSULIN ASPART PER UNIT CHARGE SC SCH (10:15)
[2023-11-15] MEDS: INSULIN ASPART PER UNIT CHARGE ONE (10:15)
[2023-11-15 10:28] LABS: Hep C Ab Rflx HepCQuant RNA Negative (Negative)
[2023-11-15 10:29] LABS: Hepatitis B Surface Ab Quant < 3.00 mIU/mL (>or=10mIU/mL Immune); Hepatitis B Surface Antibody Non-Immune
[2023-11-15 10:34] LABS: Hep B Core Total Antibody Negative (Negative)
[2023-11-15] MEDS: WARFARIN SOD 7.5 MG TAB PO ONE (11:59)
--- NOTE | 2023-11-15 13:04 | Hospitalist Progress Note ---
Date of Service November 15, 2023 Assessment & Plan (1) Acute renal failure (ARF): Plan: Acute on chronic kidney disease stage III. Appreciate nephrology and vascular surgery consultations. Creatinine continues to improve, now down to 6.1 today, November 14. Initiation of hemodialysis has been placed on hold. Monitor intake and output. IV fluids ordered. Daily lab (2) Chronic membranous glomerulonephritis: Plan: Dx in 1998; Biopsy-proven. Workup for Goodpasture's disease/vasculitis in 2020 at [facility] [place]: Negative immunological workup, negative ANCA, negative anti-GBM antibody, no SLE. With positive phospholipase A2 receptor antibody previously c/w primary membranous GN. Currently on high-dose oral steroids. Monitor intake and output. Serial labs. Appreciate nephrology consultation and recommendations (3) Depression: Plan: Stable. Continue home Lexapro. Having insomnia with steroids. Improved with addition of trazodone 50mg po hs (4) Pre-diabetes: Plan: With history of prediabetes. Glucose aggravated by steroid therapy. He is now on insulin therapy. HgbA1c 6.1% on admission. (5) longterm (current) use of anticoagulants: Plan: History of renal vein thrombosis. Coumadin toxicity noted with INR elevated to 5.6 maximum and was down to 3.6 yesterday, November 13, at which point he was given intravenous vitamin K. INR is down to 1.1 today, November 14. Since there will not be placement of a permacath, Coumadin has been restarted today, November 14 (6) Illness: Plan: Recent viral illness. tested positive for COVID one week ago and his symptoms started after that. He did not test himself at that time but likely had COVID or some other viral illness. BioFire negative. Improved with steroid therapy (7) HTN (hypertension): Plan: Elevated earlier this admission. Amlodipine was added. Blood pressure has improved. Continue Toprol-XL. Using hydralazine IV on a as needed basis. (8) Hyperparathyroidism: Plan: PTH elevated at 531, vitamin D level low at 13 despite taking 2000 units of D3 daily. Calcium is low. 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 Started vitamin D2 50,000 units once weekly as per discussion with nephrology Plan Hopeful discharge to home within the next day or 2 Admission and Anticipated Discharge Date Admission Date: November 10, 2023 Subjective Alert and oriented. Fortunately, creatinine is trending downward, now 6.1. No hemodialysis for now. Appreciate nephrology consultation and assistance. IV fluids started at 80 cc/h. Vitamin K was administered yesterday, November 13, and INR is down to 1.1. Coumadin has been restarted. Review of Systems 2 Review of Systems: Constitutionalno fever or chills ENTno blurred vision, no double vision, no epistaxis, no sore throat Respiratoryno cough, no wheezing, no shortness of breath Cardiacno palpitations, no chest pain, no syncope Dorinda nausea, vomiting, diarrhea, melena, hematochezia GUno urinary retention, no urinary incontinence, no dysuria, no hematuria Musculoskeletalno joint pain, no muscle tenderness Skinno bruising, no rashes, no pruritus Neurono isolated weakness, no paresthesia, no weakness Psychno depression, no anxiety Physical Exam 2 Physical Exam: General-alert and oriented x3, no fever, no chills HEENT-head atraumatic and normocephalic, pupils equal and reactive to light, extraocular muscles intact Neck-no lymphadenopathy or thyromegaly, trachea midline Chest-clear to auscultation. No rales, wheezing or rhonchi Cardiac-regular rate and rhythm, normal S1 and S2 Abdomen-normal bowel sounds, no hepatosplenomegaly Extremities-no cyanosis, clubbing, or edema Neuro-cranial nerves II through XII intact, motor and sensory function within normal limits, strength symmetrical, no focal deficits Psych-normal affect, normal mood Results & Data Results & Data Vital Signs (Past 12 Hours) Vital Signs Temp Pulse Pulse Resp BP Pulse Ox O2 Del Method 11/15/23 11:10 36.6 C 63 20 131/86 98 Room Air 11/15/23 05:42 62 11/15/23 02:41 36.4 C L 57 L 16 125/76 95 Room Air Laboratory Results 11/15/23 06:25 11/15/23 06:25 PG Care Time/CCT Total # of Minutes Spent Total Time Spent with Patient: Total time spent is greater than 50% in coordination of care (as documented) at patient's floor/unit and/or counseling patient: Coding Level of Care Code 56119 SUB INP/OBS CARE 3/50MIN Diagnoses Acute renal failure (ARF) N17.9 Chronic membranous glomerulonephritis N03.2 Depression F32.9 Pre-diabetes R73.03 longterm (current) use of anticoagulants Z79.01 Illness R69 Hypertension, unspecified type I10 Hypertension type: unspecified Hyperparathyroidism E21.3 (7) HTN (hypertension) Hypertension type: unspecified Qualified Code(s): I10 - Essential (primary) hypertension
[2023-11-15] MEDS: SODIUM CHLORIDE 0.9% 1,000 ML IV SCH (13:28)
[2023-11-16 06:21] LABS: Basophils # (auto) 0.01 K/uL (0.00-0.20); Basophils % (auto) 0.1 %; Hematocrit (blood only) 27.5 % (42.0-52.0); Hemoglobin 9.3 g/dl (14.0-18.0); Immature Granulocytes # (auto) 0.05 K/uL (0.01-0.20); Immature Granulocytes % (auto) 0.5 %; Lymphocytes # (auto) 1.04 K/uL (1.20-3.40); Lymphocytes % (auto) 10.3 %; Mean Corpuscular Hgb Conc 33.8 g/dL (32.0-36.0); Mean Corpuscular Volume 88.7 fL (80.0-100.0); Mean Platelet Volume 10.7 fL (9.4-12.4); Monocytes # (auto) 1.05 K/uL (0.11-0.59); Monocytes % (auto) 10.4 %; Neutrophils # (auto) 7.94 K/uL (1.40-6.50); Neutrophils % (auto) 78.7 %; Platelet Count 166 K/uL (130-400); RDW Coefficient of Variation 11.9 % (11.5-14.5); RDW Standard Deviation 38.5 fL (36.4-46.3); White Blood Count 10.09 K/ul (4.8-10.8)
[2023-11-16 06:35] LABS: INR 1.1 (0.9-1.1); Prothrombin Time 11.8 Seconds (9.0-12.0)
[2023-11-16 06:44] LABS: Albumin Level 2.7 gm/dl (3.4-5.0); BUN Creatinine Ratio 32.9 (10-20); Calcium 7.3 mg/dl (8.6-10.3); Creatinine Clr Calc Pharmacy 18.9 ml/min; Est GFR (African American) 16.5 ml/min; Est GFR (Non-African American) 14.2 ml/min; Phosphorus 6.5 mg/dl (2.5-4.9); Potassium 3.5 mmol/L (3.5-5.1)
[2023-11-16 07:42] VITALS: TEMP 98.2
--- NOTE | 2023-11-16 10:48 | Nephrology Progress Note ---
Date of Service November 16, 2023 Assessment & Plan (1) Acute renal failure: (2) Hyperphosphatemia associated with renal failure: (3) HTN (hypertension): (4) Proteinuria: (5) Chronic membranous glomerulonephritis: Plan Stage IIIA CKD, baseline creatinine 1.4-1.5 mg/dl with history of membranous nephropathy for almost 25 years, admitted with GAYLA noted on outpatient lab, creatinine was 8.1. Recently his serum cyclosporine levels were subtherapeutic and Neoral dose was increased to 150 mg BID. He was admitted to the hospital in August with GAYLA and progressive worsening of kidney function over 2 months, during hospitalization, creatinine peaked to above 5, eventually improved and on discharge his creatinine was 2.2. He continued to have high-grade proteinuria consistent with membranous nephropathy with 5 to 6 g of proteinuria but no hematuria. Renal ultrasound and renal artery Doppler was unremarkable. Has history of chronic anemia hemoglobin 10.3-11. Unclear etiology for GAYLA, no postrenal obstruction. Clinically not suggestive of prerenal or volume depletion. ? Progressive worsening of underlying membranous nephropathy as well as significant chronic tubular interstitial changes and fibrosis with history of membranous nephropathy for more than 25 years. Kidney function continues to improve, creatinine down to 4.4 , electrolyte acceptable. Overall reports feeling well. Blood pressure stable. --Continue current dose of prednisone, continue to hold Neoral, trough level was above 300. --arrange for kidney biopsy as an outpatient. -- Advised to keep well-hydrated, monitor intake and output, aim for net positive as he does not have any sign of volume overload. -- As overall he is feeling well, kidney function continues to improve and eager to go home, will discharge home today with close outpatient lab monitoring. He should have lab tomorrow and then Monday morning and has follow-up with Dr. Latham in afternoon. Advised to keep well-hydrated at home. --Continue Prednisone 60 mg daily Admission and Anticipated Discharge Date Admission Date: November 10, 2023 Fran Zepeda was seen and evaluated this morning with his family at bedside. Overall he reports feeling well, reports decent urine output, no shortness of breath. Eager to go home. Lab was notable for continued improvement in kidney function, creatinine down to 4.4, electrolyte decent. Review of Systems Review of Systems: Detailed review of system was done and pertinent positives and negatives are mentioned above. Physical Exam Constitutional: WD/WN, vitals as above no acute distress Eyes: + anicteric sclerae Respiratory: Auscultation: lungs clear to auscultation bilaterally Cardiovascular: RRR, no murmur, no edema Musculoskeletal: Extremities: extremities normal to inspection Skin: no rashes, warm and dry Neurologic: no focal motor deficits Psychiatric: Orientation: alert and oriented x 3 Affect: euthymic affect Results & Data Vital Signs (Past 12 Hours) Vital Signs Temp Pulse Pulse Resp BP Pulse Ox O2 Del Method 11/16/23 08:30 Room Air 11/16/23 07:41 36.8 C 61 18 148/96 H 98 Room Air 11/16/23 07:00 63 11/16/23 02:39 36.6 C 59 L 16 119/77 96 Room Air 11/16/23 00:35 67 PG Care Time/CCT Total # of Minutes Spent Total Time Spent with Patient: Total time spent is greater than 50% in coordination of care (as documented) at patient's floor/unit and/or counseling patient: Coding Level of Care Code 19435 SUB INP/OBS CARE 3/50MIN Diagnoses Acute renal failure N17.9 Hyperphosphatemia associated with renal failure E83.39; N19 Hypertension, unspecified type I10 Hypertension type: unspecified Proteinuria R80.9 Chronic membranous glomerulonephritis N03.2 (3) HTN (hypertension) Hypertension type: unspecified Qualified Code(s): I10 - Essential (primary) hypertension
[2023-11-16 11:08] VITALS: PULSE 66; RESP 20; O2SAT 95
[2023-11-16 11:37] VITALS: BP 165/100
--- NOTE | 2023-11-16 12:37 | Discharge Summary ---
Discharge Summary Date of Service November 16, 2023 Principal Dx & Hospital Course #1 = Principal Diagnosis (1) Acute renal failure (ARF): Acute on chronic kidney disease stage III. Appreciate nephrology and vascular surgery consultations. Creatinine continues to improve, now down to 4.3 today, November 15. It appears hemodialysis will not be necessary. Monitor intake and output. He will continue with outpatient lab work twice weekly until further notice (2) Chronic membranous glomerulonephritis: Dx in 1998; Biopsy-proven. Workup for Goodpasture's disease/vasculitis in 2020 at [facility] [place]: Negative immunological workup, negative ANCA, negative anti-GBM antibody, no SLE. With positive phospholipase A2 receptor antibody previously c/w primary membranous GN. Treated while hospitalized with high-dose oral steroids. He will be discharged on prednisone 60 mg daily. He will continue with lab studies twice weekly until further notice. Appreciate nephrology consultation and recommendations (3) Depression: Stable. Continue home Lexapro. Having insomnia with steroids. Improved with addition of trazodone 50mg po hs (4) Pre-diabetes: With history of prediabetes. Glucose aggravated by steroid therapy. Treated while hospitalized with insulin therapy. HgbA1c 6.1% on admission. (5) assisted (current) use of anticoagulants: History of renal vein thrombosis. Coumadin toxicity noted with INR elevated to 5.6 maximum and was down to 3.6 yesterday, November 13, at which point he was given intravenous vitamin K. INR is down to 1.1 today, November 14. Since there will not be placement of a permacath, Coumadin has been restarted today, November 14 (6) Illness: Recent viral illness. tested positive for COVID one week ago and his symptoms started after that. He did not test himself at that time but likely had COVID or some other viral illness. BioFire negative. Improved with steroid therapy (7) HTN (hypertension): Elevated earlier this admission. Amlodipine was added. Blood pressure has improved. Continue Toprol-XL. Using hydralazine IV on a as needed basis. (8) Hyperparathyroidism: PTH elevated at 531, vitamin D level low at 13 despite taking 2000 units of D3 daily. Calcium is low. 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 Started vitamin D2 50,000 units once weekly as per discussion with nephrology Plan Home todayNovember 15 Admission HPI Per Admitting Provider Duane is a 57-year-old male with PMH of GERD, dyslipidemia, mitral regurgitation, depression, renal vein thrombosis, and long-term use of anticoagulations (warfarin). He presented on 11/09 for elevated creatinine levels on outpatient labs. Patient was set to see nephrology next month. He was also admitted to [facility] in August 2023 for a similar elevation in creatinine. Patient reports that last Monday/Monday he was sick with cold-like symptoms and had fevers at home. Did not take his temperature at that time. He reports that he took his regular morning medications; only recent changes were that his dosage for warfarin was changed on Monday 11/06, and his near all was increased to 150 mg p.o. twice daily at the beginning of October; was previously on 100 mg p.o. twice daily. Patient reports he is still producing urine, albeit in smaller amounts and more frequently. No history of kidney stones. No history of prostate issues or obstruction. He reports that he does stay well-hydrated at home. He did develop a new, aching back pain during his recent illness last Monday/Friday 11/03. He thought it might of been from sleeping in his chair, and not moving around much. He was having difficulty with sleep due to the back pain, and reports that he took Tylenol, but no nephrotoxic agents such as NSAIDs. He avoids ACEs/ARB's. No radiation of lower back pain down the legs. Patient denies smoking, or alcohol use. The reports that he did chew tobacco, but quit 1 year ago. Additional symptoms includes blood in his stool, which he attributes to his hemorrhoids; last colonoscopy was in November 2022. Patient is hypertensive at 152/102 at time of admission; vitals otherwise stable. ED course: NSS 1000 mL IV ROS: Patient endorses low grade fevers, STRANGE, nausea, loss of appetite, and intermittent lower back pain, frothy urine, and blood in the stool (which patient attributes to hemorrhoids). Patient denies chills, night-sweats, dizziness, lighteadedness, chest pain, chest palpitations, SOB, cough, abdominal pain, vomiting, diarrhea, blood in the urine, dark urine, dysuria, burning with urine, saddle anesthesia, or numbness/tingling in the arms or legs. Discharge Exam General-alert and oriented x3, no fever, no chills HEENT-head atraumatic and normocephalic, pupils equal and reactive to light, extraocular muscles intact Neck-no lymphadenopathy or thyromegaly, trachea midline Chest-clear to auscultation. 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 This dosage will be adjusted by her ux engineer. Cyclosporine is on hold until further notice. Coumadin has been restarted at your previous dosage. Amlodipine was added for better blood pressure control. Continue vitamin D supplement. Prescriptions have been sent to [facility] in [place] Pending Studies at Discharge: No Stand-Alone Forms: My [facility], Smoking Cessation Medications and DC Order Prescriptions: New prednisone 20 mg tablet 20 mg PO TID Qty: 30 0RF amlodipine 5 mg tablet 5 mg PO DAILY Qty: 30 0RF trazodone 50 mg tablet 50 mg PO HS Qty: 30 0RF ergocalciferol (vitamin D2) [Vitamin D2] 1,250 mcg (50,000 unit) capsule 1,250 mcg PO DAILY Qty: 30 0RF Continued metoprolol succinate 50 mg tablet extended release 24 hr 50 mg PO BID Qty: 180 3RF Rx Instructions: 1 tablet twice per day hydrocortisone [Anusol-HC] 2.5 % cream with perineal applicator 1 applic RI BID PRN (Reason: hemorrhoids) 30 Days Qty: 30 2RF hydrocortisone acetate 25 mg suppository 25 mg RI DAILY PRN (Reason: Other) 30 Days Qty: 24 2RF Hold Instructions: Resume on 09/01/23. Hold while acute renal failure healing. escitalopram oxalate 5 mg tablet 10 mg PO QAM furosemide 20 mg tablet 20 mg PO DAILY PRN (Reason: ankle edema) Qty: 30 5RF Hold Instructions: Resume on 09/01/23. Hold while acute renal failure still healing. Rx Instructions: 20 mg orally as needed for ankle edema; warfarin 5 mg tablet 7.5 mg PO UD Protocol: Dose Management Condition: Monday (Week One) Dose/Route: 5 mg Instruction: 1 x 5 mg tablet Condition: Monday Dose/Route: 7.5 mg Instruction: 1.5 x 5 mg tablets Condition: Monday Dose/Route: 0 mg Instruction: 0 tablets Condition: Monday Dose/Route: 5 mg Instruction: 1 x 5 mg tablet Condition: Dose/Route: 5 mg Instruction: 1 x 5 mg tablet Condition: Monday Dose/Route: 7.5 mg Instruction: 1.5 x 5 mg tablets Condition: Monday Dose/Route: 5 mg Instruction: 1 x 5 mg tablet Condition: Monday (Week Two) Dose/Route: 5 mg Instruction: 1 x 5 mg tablet Condition: Monday Dose/Route: 7.5 mg Instruction: 1.5 x 5 mg tablets Condition: Monday Dose/Route: 5 mg Instruction: 1 x 5 mg tablet Condition: Monday Dose/Route: 5 mg Instruction: 1 x 5 mg tablet Condition: Dose/Route: 5 mg Instruction: 1 x 5 mg tablet Condition: Monday Dose/Route: 7.5 mg Instruction: 1.5 x 5 mg tablets Condition: Monday Dose/Route: 5 mg Instruction: 1 x 5 mg tablet Protocol Text: Adjustment Start Date: Monday11/07/23 INR Value: 4.1 INR Date: 11/07/23 Recheck Date: 11/14/23 Rx Instructions: 5 mg- Monday, and Monday, Monday, Monday ; 7.5 Monday, Monday allopurinol 300 mg tablet 300 mg PO QAM Hold Instructions: GAYLA Rx Instructions: TAKE 1 TABLET ORALLY DAILY IN THE MORNING cholecalciferol (vitamin D3) 50 mcg (2,000 unit) capsule 50 mcg PO PM rosuvastatin [Crestor] 40 mg tablet 40 mg PO PM Discontinued cyclosporine modified [Neoral] 100 mg capsule 100 mg PO BID Qty: 180 3RF cyclosporine modified [Neoral] 25 mg capsule 50 mg PO BID Qty: 120 5RF Rx Instructions: Take 150 mg twice daily (one 100 + two 25 mg twice daily) Discharge Orders: Discharge Order (Routine); Ordered 11/16/23 Ordered By: Fredis Barajas/Other Patient Handouts: Prediabetes, 5 Steps for Eating Healthier Admission Data Admit Date/Time: 11/10/23 16:10 Attending Provider: Fredis Khanna Admit Provider: Julio Rae Primary Care Provider: Tasneem Russo Other Providers: Julio Rae; Rizwan Latham Other Interventions: Discharge Summary Assessment (RN) Last Done: 11/16/23 11:36 Hospital Stay Data Consultations 11/10/23 15:19 ED Decision to Admit Stat 11/10/23 15:43 Consult Nephrology Routine Procedures Performed Operation Date: 11/15/23 07:00 <No data on this case meets the specified criteria> Diagnostic Imagining Performed 11/10/23 13:54 US Renal Bladder [US renal/blad retro comp] Stat Pending Results Patient Have Any Pending Studies at Discharge: No Discharge Instructions Given to Patient (Per Discharging Provider) Take prednisone 20 mg 3 times a day for now. This dosage will be adjusted by her ux engineer. Cyclosporine is on hold until further notice. Coumadin has been restarted at your previous dosage. Amlodipine was added for better blood pressure control. Continue vitamin D supplement. 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
== END 2023-11-16 13:34 | disposition home or self-care (01) | DRG 683 ==
LOC: ED 13:04 → SUATTDRO 16:10 → 2N 16:10